=== PATIENT | female | born 1975 | race African-American/Black ===

== ENCOUNTER 2018-12-06 19:43 | Inpatient (IN) ==
[2018-12-06] MEDS ORDERED: ZOFRAN PO ONE (20:35)
[2018-12-06] MEDS ORDERED: HUMULIN R IV ONE (20:37)
[2018-12-06] MEDS ORDERED: BENTYL IM ONE (20:37)
[2018-12-06 21:09] LABS: BASO# 0.03 X1000 (0.0-0.2); BASO% 0.2 % (0.0-0.8); HEMATOCRIT 30.1 % (37.0-47.0); HEMOGLOBIN 10.4 g/dL (12.0-16.0); IMM GRAN# 0.08 X1000 (0.0-0.04); IMM GRAN% 0.6 % (0.0-0.5); LYMPH# 1.95 X1000 (1.2-3.4); LYMPH% 13.9 % (20.5-51.1); MCHC 34.6 g/dL (33-37); MCV 75.3 FL (81-99); MONO# 0.84 X1000 (0.11-0.59); NEUT# 11.09 X1000 (1.4-6.5); NEUT% 79.3 % (42.2-75.2); PLT 598 X1000 (130-400); RDW 19.1 % (11.5-14.5); WBC 13.99 X1000 (4.8-10.8)
[2018-12-06 23:33] LABS: URINE SOURCE CLEAN CATCH
[2018-12-07 00:20] LABS: BILIRUBIN URINE MODERATE (NEGATIVE); BLOOD URINE LARGE (NEGATIVE); COLOR YELLOW; GLUCOSE URINE >1000 mg/dL (NEGATIVE); KETONE URINE TRACE mg/dL (NEGATIVE); LEUKOCYTES URINE LARGE (NEGATIVE); NITRITE URINE NEGATIVE (NEGATIVE); PH URINE 6.5; PROTEIN URINE 600 mg/dL (NEGATIVE); SP GRAVITY URINE 1.022; TURBIDITY URINE TURBID (CLEAR); UROBILINOGEN URINE 4 mg/dL (NORMAL)
[2018-12-07] MEDS ORDERED: TYLENOL PO ONE (00:25)
[2018-12-07 00:29] LABS: UR EPITHELIAL CELLS >10 /HPF (<10); URINE BACTERIA 2+ /HPF; URINE RBC TNTC /HPF (<10); URINE WBC TNTC /HPF (<10)
[2018-12-07 00:39] LABS: URINE CASTS NONE SEEN; URINE CRYSTALS NONE SEEN; URINE SMALL ROUND CELLS NONE SEEN; URINE YEAST NONE SEEN
[2018-12-07] MEDS ORDERED: HUMULIN R IV ONE (01:10)
[2018-12-07] MEDS ORDERED: ZOFRAN IV ONE (01:10)
[2018-12-07] MEDS ORDERED: ROCEPHIN 1 GM in NS 50 ML IV ONE (02:06)
[2018-12-07] MEDS ORDERED: OFIRMEV 1000 MG/ISOTONIC SOLN 1,000 MG/100 ML BOTTLE ONE (02:26)
--- NOTE | 2018-12-07 02:29 | PROVIDER DOCUMENTATION ---
This chart was entered by Bell Luo Scribe, acting as scribe for Deonte Salinas MD. HPI-Abdominal Pain/GI Problem <Nery Robertson - Last Filed: 12/07/18 06:14> - History of Present Illness-ABD Nature of Presenting Problems: 43 yof c/o abd pain 1 mon, v x 4 today and x2 yest (green in color), and no appetite. pt is a dialysis pt bc of her kidneys due to dm. last dialysis tx was friday. pt sts she has had bm's but has been constipated, her bm's are "balled up." pt urinating very little. pt has noticed her eyes becoming more yellow in color. pt went to dr and was told she has gallstones. pt has no hx of kidney stones. pt denies fever, chills and lightheadedness. Abdominal Pain Onset Location: reports: generalized abdomen Pain Radiation: reports: no radiation <Deonte Salinas - Last Filed: 12/07/18 17:07> - General Chief Complaint: Abdominal Pain Stated Complaint: VOMITING CANT EAT Time Seen by Provider: 12/06/18 20:14 Allergies/Adverse Reactions: Patient Allergies Allergy/AdvReac Type Severity Reaction Status Date / Time No Known Allergies Allergy Verified 12/02/15 00:59 Home Medications: Home Medication List Medication Instructions Recorded Confirmed Last Taken Type PRAVAstatin [Pravachol] 80 mg PO QHS 12/02/15 12/06/18 12/01/15 21:00 History Hydroxyzine [Atarax] 10 mg PO TID PRN #20 tab 10/01/18 12/06/18 Unknown Rx Amlodipine [Norvasc] 5 mg PO DAILY 12/06/18 12/06/18 Unknown History Clonidine [Catapres-Tts 2] 1 patch TD Q7D 12/06/18 12/06/18 Unknown History Clopidogrel [Plavix] 75 mg PO DAILY 12/06/18 12/06/18 Unknown History Docusate Sodium [Colace] 100 mg PO DAILY PRN 12/06/18 12/06/18 Unknown History Furosemide 20 mg PO DAILY 12/06/18 12/06/18 Unknown History Gabapentin 1 cap PO QHS 12/06/18 12/06/18 Unknown History Hydralazine [Apresoline] 25 mg PO Q8H 12/06/18 12/06/18 Unknown History Insulin Aspart [Novolog Flexpen] 20 units SUBQ AC 12/06/18 12/06/18 Unknown History Metoprolol Succinate E.r. [Toprol 100 mg PO DAILY 12/06/18 12/06/18 Unknown History Xl] Ondansetron HCl [Zofran] 1 tab PO DIRECTED 12/06/18 12/06/18 Unknown History Review of Systems - Adult - REVIEW OF SYSTEMS - ADULT Constitutional: reports: no symptoms reported. denies: chills, fever Eyes: reports: see HPI, other (eyes yellowing). denies: dry eyes, decreased vision, blurred vision Ears, Nose, Mouth & Throat: reports: no symptoms reported. denies: ear pain, nose pain, throat pain Cardiovascular: reports: no symptoms reported. denies: chest pain, heart murmur, poor circulation Respiratory: reports: no symptoms reported. denies: chronic cough, excessive sputum production, shortness of breath Gastrointestinal: reports: see HPI, abdominal pain, constipation, poor appetite, vomiting. denies: hematemesis, difficulty swallowing, frequent heartburn, rectal bleeding Genitourinary: reports: no symptoms reported. denies: dysuria, discharge, frequency Musculoskeletal: reports: no symptoms reported. denies: bone pain, back pain, joint pain Integumentary: reports: no symptoms reported Neurological: reports: no symptoms reported Psychiatric: reports: no symptoms reported Endocrine: reports: no symptoms reported Hematologic/Lymphatic: reports: no symptoms reported Allergic/Immunologic: reports: no symptoms reported All Other Systems: Reviewed and Negative <Deonte Salinas - Last Filed: 12/07/18 17:07> Past History - Adult - PAST MEDICAL HISTORY-ADULT Review of Records: reports: Old Records Reviewed, Nursing Assessment Review, Medications Reviewed, Social history reviewed & non-contributory. Major Childhood Illnesses: reports: denies history Cardiovascular: reports: HTN, hyperlipidemia Respiratory: reports: denies history Gastrointestinal: reports: denies history Obstetrical/Gynecological: reports: denies history Genitourinary: reports: kidney disease Musculoskeletal: reports: chronic pain Neurological: reports: denies history Endocrine/Immune: reports: Diabetes Other Conditions: reports: denies history - PRIOR SURGERIES/PROCEDURES Surgical/Procedure History: reports: reviewed, not pertinent, orthopedic (extremity) - PRIOR HOSPITALIZATIONS Prior Hospitalizations: reports: for other non-related - IMMUNIZATION STATUS Childhood Immunizations: See Nurse Assessment Flu Vaccine: See Nurse Assessment - FAMILY HISTORY Family History: reviewed, not pertinent - SOCIAL HISTORY Smoking: non-smoker Substance Use: alcohol Alcohol Use Frequency: occasionally <Deonte Salinas - Last Filed: 12/07/18 17:07> Physical Exam-General - PHYSICAL EXAM-ADULT Initial Vital Signs Reviewed: Yes - CONSTITUTIONAL General Appearance: appears well, alert, mild distress. negative: slow to respond, obtunded, combative - EYES Eyes: PERRL/EOMI, scleral icterus - HEAD, EARS, NOSE, MOUTH & THROAT HENMT: normocephalic/atraumatic, moist mucous membranes, normal ENT inspection - NECK Neck: non-tender, full range of motion, supple, normal inspection - RESPIRATORY Respiratory: chest non-tender, lungs clear, normal breath sounds - CARDIOVASCULAR Cardiovascular: normal peripheral pulses, regular rate, rhythm - GASTROINTESTINAL (ABDOMEN) Abdominal Exam: normal bowel sounds, soft, no organomegaly, no pulsatile mass, tenderness (gen abd). negative: non tender, abdominal bruit, abnormal bowel sounds, guarding, rigid, rebound - LYMPHATIC Lymphatic: no adenopathy - MUSCULOSKELETAL Back Exam: normal inspection, no CVA tenderness, no vertebral tenderness Extremity: normal range of motion, non-tender, normal inspection Peripheral Pulses: radial (R): 2+, radial (L): 2+ - SKIN Integumentary: normal color, normal turgor, warm/dry - NEUROLOGIC Neurologic: grossly normal, no motor/sensory deficits - PSYCHIATRIC Psych/Mental Status: normal mood/affect, normal thought content, normal thought process, oriented x 3 <Deonte Salinas - Last Filed: 12/07/18 17:07> Progress - PLAN OF CARE/RESULTS Progress/Plan/Lab Results: Vital Signs - 8 hr 12/06/18 20:09 12/06/18 21:10 12/06/18 21:20 Temperature 98.3 F Pulse Rate 80 77 78 Respiratory Rate 19 18 19 Blood Pressure 150/106 O2 Sat by Pulse Oximetry 100 100 100 12/06/18 21:30 12/06/18 22:00 12/06/18 22:10 Temperature Pulse Rate 78 78 78 Respiratory Rate 17 20 19 Blood Pressure O2 Sat by Pulse Oximetry 100 100 100 12/06/18 22:33 12/06/18 23:33 12/07/18 00:03 Temperature 98.6 F Pulse Rate 99 H 79 69 Respiratory Rate 27 H 24 16 Blood Pressure 147/100 147/95 150/104 O2 Sat by Pulse Oximetry 95 100 100 12/07/18 00:33 12/07/18 00:40 12/07/18 00:48 Temperature 98.7 F Pulse Rate 79 Respiratory Rate 16 10 L 23 Blood Pressure 161/105 158/110 O2 Sat by Pulse Oximetry 100 98 12/07/18 00:50 12/07/18 01:03 12/07/18 01:18 Temperature 99 F Pulse Rate 77 79 Respiratory Rate 10 L 18 12 Blood Pressure 161/115 161/111 O2 Sat by Pulse Oximetry 99 100 100 12/07/18 01:48 12/07/18 02:03 12/07/18 02:18 Temperature 98.3 F 98.9 F Pulse Rate 88 79 66 Respiratory Rate 24 24 23 Blood Pressure 174/113 160/103 163/105 O2 Sat by Pulse Oximetry 99 100 100 12/07/18 02:40 12/07/18 02:50 Temperature Pulse Rate 77 Respiratory Rate 20 27 H Blood Pressure O2 Sat by Pulse Oximetry 100 97 Laboratory Results - last 24 hr 12/06/18 12/06/18 12/06/18 19:54 20:51 22:24 WBC 13.99 H RBC 4.00 L Hgb 10.4 L Hct 30.1 L MCV 75.3 L MCH 26.0 L MCHC 34.6 RDW Std Deviation 19.1 H Plt Count 598 H MPV 10.0 Immature Gran % (Auto) 0.6 H Neut % (Auto) 79.3 H Lymph % (Auto) 13.9 L Wood % (Auto) 6.0 Eos % (Auto) 0.0 Baso % (Auto) 0.2 Immature Gran # (Auto) 0.08 H Neut # (Auto) 11.09 H Lymph # (Auto) 1.95 Wood # (Auto) 0.84 H Eos # (Auto) 0.00 Baso # (Auto) 0.03 Sodium Potassium Chloride Carbon Dioxide Anion Gap BUN Creatinine Estimated GFR/1.73 m2 BUN/Creatinine Ratio Glucose POC Glucose 500 H 500 H Calculated Osmolality Calcium Total Bilirubin AST ALT Alkaline Phosphatase Total Protein Albumin Globulin Albumin/Globulin Ratio Amylase Lipase Urine Source Urine Color Urine Turbidity Urine pH Ur Specific [place] Urine Protein Ur Glucose (Stick) Ur Ketones (Stick) Urine Blood Urine Nitrite Urine Bilirubin Urobilinogen Dipstick Urine Leukocytes Urine WBC (Auto) Urine RBC (Auto) U Epithel Cells (Auto) Urine Bacteria (Auto) Urine Crystals Small Round Cells Urine Casts Urine Yeast-like Cells Acetone Level 12/06/18 12/07/18 12/07/18 23:23 00:45 01:26 WBC RBC Hgb Hct MCV MCH MCHC RDW Std Deviation Plt Count MPV Immature Gran % (Auto) Neut % (Auto) Lymph % (Auto) Wood % (Auto) Eos % (Auto) Baso % (Auto) Immature Gran # (Auto) Neut # (Auto) Lymph # (Auto) Wood # (Auto) Eos # (Auto) Baso # (Auto) Sodium Cancelled Potassium Cancelled Chloride Cancelled Carbon Dioxide Cancelled Anion Gap Cancelled BUN Cancelled Creatinine Cancelled Estimated GFR/1.73 m2 Cancelled BUN/Creatinine Ratio Cancelled Glucose Cancelled POC Glucose 500 H Calculated Osmolality Cancelled Calcium Cancelled Total Bilirubin Cancelled AST Cancelled ALT Cancelled Alkaline Phosphatase Cancelled Total Protein Cancelled Albumin Cancelled Globulin Cancelled Albumin/Globulin Ratio Cancelled Amylase Cancelled Lipase Cancelled Urine Source CLEAN CATCH Urine Color YELLOW Urine Turbidity TURBID Urine pH 6.5 Ur Specific [place] 1.022 Urine Protein 600 A Ur Glucose (Stick) >1000 A Ur Ketones (Stick) TRACE A Urine Blood LARGE A Urine Nitrite NEGATIVE Urine Bilirubin MODERATE A Urobilinogen Dipstick 4 A Urine Leukocytes LARGE A Urine WBC (Auto) TNTC A Urine RBC (Auto) TNTC A U Epithel Cells (Auto) >10 A Urine Bacteria (Auto) 2+ Urine Crystals NONE SEEN Small Round Cells NONE SEEN Urine Casts NONE SEEN Urine Yeast-like Cells NONE SEEN Acetone Level 12/07/18 12/07/18 12/07/18 01:26 02:06 02:30 WBC RBC Hgb Hct MCV MCH MCHC RDW Std Deviation Plt Count MPV Immature Gran % (Auto) Neut % (Auto) Lymph % (Auto) Wood % (Auto) Eos % (Auto) Baso % (Auto) Immature Gran # (Auto) Neut # (Auto) Lymph # (Auto) Wood # (Auto) Eos # (Auto) Baso # (Auto) Sodium 131 L Potassium Cancelled 4.8 Chloride 92 L Carbon Dioxide 18 L Anion Gap 21 BUN 43 H Creatinine 4.4 H Estimated GFR/1.73 m2 13 BUN/Creatinine Ratio 10 Glucose 536 H* POC Glucose Calculated Osmolality 295 Calcium 8.7 L Total Bilirubin 4.91 H AST 89 H ALT 87 H Alkaline Phosphatase 953 H Total Protein 6.9 Albumin 2.8 L Globulin 4.1 Albumin/Globulin Ratio 0.7 Amylase 36 Lipase 52 Urine Source Urine Color Urine Turbidity Urine pH Ur Specific [place] Urine Protein Ur Glucose (Stick) Ur Ketones (Stick) Urine Blood Urine Nitrite Urine Bilirubin Urobilinogen Dipstick Urine Leukocytes Urine WBC (Auto) Urine RBC (Auto) U Epithel Cells (Auto) Urine Bacteria (Auto) Urine Crystals Small Round Cells Urine Casts Urine Yeast-like Cells Acetone Level NEGATIVE Orders Category Date Time Status Blood Glucose Finger Stick [FSBS/Accucheck Result] NOW Care 12/07/18 00:03 Active ACETONE SERUM [CHEM] Stat Lab 12/06/18 20:51 Completed AMYLASE [CHEM] Routine Lab 12/07/18 02:30 Completed CBC WITH ELECTRONIC DIFF [HEME] Stat Lab 12/06/18 20:51 Completed COMPREHENSIVE METABOLIC PANEL [CHEM] Routine Lab 12/07/18 02:30 Completed LIPASE [CHEM] Routine Lab 12/07/18 02:30 Completed URINALYSIS W/POSS RFLX CULT [URINALYSIS] Stat Lab 12/06/18 23:23 Completed URINE CULTURE [RM] Routine Lab 12/07/18 00:40 Received URINE MANUAL MICROSCOPIC [URINALYSIS] Stat Lab 12/06/18 23:23 Completed Acetaminophen [Ofirmev 1000 mg/Isotonic Soln] Med 12/07/18 02:26 Discontinued 1,000 mg in 100 ml .ROUTE As directed Acetaminophen [Ofirmev 1000 mg/Isotonic Soln] Med 12/07/18 02:30 Discontinued 1,000 mg in 100 ml INJ NOW Acetaminophen [Tylenol] Med 12/07/18 00:25 Discontinued 650 mg PO NOW ONE CefTRIAXONE [Rocephin] 1 gm Med 12/07/18 02:06 Discontinued 0.9% Sodium Chloride Inj [Ns] 50 ml IV NOW Dicyclomine [Bentyl] Med 12/06/18 20:37 Discontinued 20 mg IM NOW ONE Insulin Human Regular [Humulin R] Med 12/06/18 20:37 Discontinued 5 unit IV NOW ONE Insulin Human Regular [Humulin R] Med 12/07/18 01:10 Discontinued 8 unit IV NOW ONE Ondansetron [Zofran] Med 12/07/18 01:10 Discontinued 4 mg IV NOW ONE Ondansetron [Zofran] Med 12/06/18 20:35 Discontinued 8 mg PO NOW ONE EKG [EKG] Stat Ther 12/07/18 02:20 Ordered Result Diagrams: 12/06/18 20:51 12/07/18 02:30 <Nery Robertson - Last Filed: 12/07/18 06:14> - PLAN OF CARE/RESULTS Progress/Plan/Lab Results: Vital Signs - 8 hr 12/06/18 19:45 12/06/18 20:08 12/06/18 20:09 Temperature 97.7 F Pulse Rate 83 83 80 Respiratory Rate 15 18 19 Blood Pressure 145/98 150/106 O2 Sat by Pulse Oximetry 100 100 Laboratory Results - last 24 hr 12/06/18 19:54 POC Glucose 500 H I noticed delay in lab results called lab and they told me sample is hemolysed and they informed our ED. I spoke to nurse Lee and it looks like that happened in the previous nursing shift. Nurse Lee is going to send blood for lab test. Patient with abdominal pain, leukocytosis, vomiting, hyperglycemia need admission and further management in inpatient setting. I sign out patient care to Dr. Robertson. Result Diagrams: 12/06/18 20:51 12/07/18 02:30 - CHANGE OF SHIFT REPORT (ED Provider) 1 Report Given and Care Transferred to:: Dr. Robertson Time of Transfer: 02:30 Items Pending: Labs, Other (EKG) <Deonte Salinas - Last Filed: 12/07/18 17:07> Departure - Departure Date of Disposition Decision: 12/07/18 Time of Disposition Decision: 04:10 Certified Medical Emergency: Emergent - Critical Care Note This patient required my direct & personal management of CC.: No <Nery Robertson - Last Filed: 12/07/18 06:14> <Deonte Salinas - Last Filed: 12/07/18 17:07> - Departure DIAGNOSIS: Hyperglycemia UTI (urinary tract infection) Qualifiers: Urinary tract infection type: site unspecified Hematuria presence: with hematuria Qualified Code(s): N39.0 - Urinary tract infection, site not specified; R31.9 - Hematuria, unspecified Abdominal pain Qualifiers: Abdominal location: epigastric Qualified Code(s): R10.13 - Epigastric pain Disposition: ADMITTED INPATIENT 09 Condition: Good Attestation - Physician/ ANNELISE Attestation Patient care was provided by Advanced Practice Provider:: No The physician spent face to face time with patient:: Yes Advanced Practice Provider documentation review:: Supervising physician onsite and consulted in the evaluation and care of this patient. The physician did have a face to face encounter with the patient. <Nery Robertson - Last Filed: 12/07/18 06:14> - Physician/ ANNELISE Attestation Patient care was provided by Advanced Practice Provider:: No The physician spent face to face time with patient:: Yes Advanced Practice Provider documentation review:: Supervising physician onsite and consulted in the evaluation and care of this patient. The physician did have a face to face encounter with the patient. <Deonte Salinas - Last Filed: 12/07/18 17:07> This chart was documented by the indicated scribe, (Bell Luo Scribe) and accurately reflects the services I performed and decisions made by me, Deonte Salinas MD, as attested by the provider's signature.
[2018-12-07] MEDS ORDERED: OFIRMEV 1000 MG/ISOTONIC SOLN 1,000 MG/100 ML BOTTLE INJ ONE (02:30)
[2018-12-07 03:09] LABS: ALB/GLOB RATIO 0.7; ALBUMIN 2.8 g/dL (3.5-5.0); CALCIUM 8.7 mg/dL (8.8-10.2); CREATININE 4.4 mg/dL (0.5-0.9); POTASSIUM 4.8 mmol/L (3.5-5.1); TOTAL BILIRUBIN 4.91 mg/dL (0.20-1.00); TOTAL PROTEIN 6.9 g/dL (6.3-8.3)
[2018-12-07] MEDS ORDERED: COLACE PO PRN (04:16)
[2018-12-07] MEDS ORDERED: ZOFRAN PO SCH (04:30)
[2018-12-07] MEDS ORDERED: NS 1,000 ML IV ONE (04:44)
[2018-12-07 05:07] LABS: HEMOGLOBIN A1C 13.8 % (4.8-6.0)
[2018-12-07] MEDS ORDERED: BLISTEX MEDICATED BERRY LIP BALM TOP ONE (05:28)
[2018-12-07] MEDS ORDERED: TYLENOL PO PRN (06:10)
[2018-12-07] MEDS ORDERED: ZOFRAN IV PRN (06:10)
--- NOTE | 2018-12-07 06:33 | HISTORY AND PHYSICAL ---
CHIEF COMPLAINT: Abdominal pain, nausea, and vomiting. HISTORY OF PRESENT ILLNESS: Ms. Viera is a 43-year-old female with a history of end-stage renal disease with Friday, , Friday hemodialysis, diabetes mellitus type 1, hypertension, hyperlipidemia, a history of anxiety and depression who comes in after having nausea and vomiting for the past two days. She states that is also having right upper quadrant abdominal pain and she noted that her eyes were starting to look yellow so she came into the emergency room. Initial laboratory data showed an elevated white blood cell count, also an elevated glucose in the 500s. Her total bilirubin was also elevated at 4.91 and her urine was leuko-esterase positive with too numerous to count WBCs, 2+ bacteria and hematuria. She will be admitted to the medical floor for further evaluation and treatment. PAST MEDICAL HISTORY: See HPI. PREVIOUS SURGICAL HISTORY: 1. Tubal ligation. 2. Right chest tunnel catheter placement. 3. Left wrist surgery. SOCIAL HISTORY: Denies tobacco, alcohol or illicit drugs. FAMILY HISTORY: Hypertension in her immediate family. Her mother had diabetes and from kidney disease. Her father from prostate cancer. ALLERGIES: No known drug allergies. MEDICATIONS: 1. NovoLog Flex Pen 20 units subcutaneously AC, 2. Norvasc 5 mg p.o. daily. 3. Clonidine TTS 2 patch q 7 days. 4. Plavix 75 mg p.o. daily. 5. Colace 100 mg p.o. daily. 6. Lasix 20 mg p.o. daily. 7. Neurontin 100 mg p.o. nightly. 8. Hydralazine 25 mg p.o. q.8.h. 9. Hydroxyzine 10 mg p.o. t.i.d. 10.Metoprolol 100 mg p.o. daily. 11.Zofran one tablet p.o. p.r.n. 4 mg. 12.Pravastatin 80 mg p.o. nightly. REVIEW OF SYSTEMS: Fourteen point review of systems conducted with the patient. Pertinent positives listed above in the HPI. All other systems reviewed and found to be negative. PHYSICAL EXAMINATION: VITAL SIGNS: Temperature 98.9, pulse 77, respirations 20, blood pressure 163/105, oxygen saturation 100% on room air. GENERAL: Pleasant 43-year-old female sitting on the side of the ER stretcher, answers all questions appropriately. She is alert and oriented times 3. HEENT: Head is atraumatic, normocephalic. Pupils equal, round, reactive to light. Extraocular eye movement is intact. Sclerae is jaundiced. Conjunctivae is pale. Oral mucosa is moist. NECK: Supple. Mild JVD noticed. Trachea is midline. CARDIAC: S1, S2 appreciated. No murmurs, gallops or rubs. LUNGS: Clear to auscultation bilaterally. No rhonchi, wheezes or rales. Symmetric rise and fall with respirations. ABDOMEN: Soft, nondistended, tender diffusely but the greatest area is in the right upper quadrant. Bowel sounds present all 4 quadrants, hypoactive. No pulsatile mass. No organomegaly. EXTREMITIES: No clubbing, cyanosis or edema. Two-plus pedal pulses bilaterally. NEUROLOGICAL: Alert and oriented times 3. Cranial nerves II-XII appear to be grossly intact. MUSCULOSKELETAL: Within normal limits. DIAGNOSTIC DATA: Right upper quadrant ultrasound is pending. LABORATORY DATA: WBC 13.99. Hemoglobin 10.4. Hematocrit 30.1. Platelet count 598. Sodium 131. Potassium 4.8. Chloride 92. Carbon dioxide 18. BUN 43. Creatinine 4.4. Glucose 536. Total bilirubin 4.91. AST 89. ALT 87. Urine: Positive for hematuria, leuko- esterase positive, too numerous to count WBCs, 2+ bacteria. PLAN: 1. Right-sided pyelonephritis. Will treat with Rocephin 1 g IV q.24.h at this time. Urine culture is pending. Will also order blood cultures. 2. End-stage renal disease with hemodiagnosis. Will consult Dr. Hannah. Will monitor patient's fluid volume status. 3. Abdominal pain with nausea and vomiting. Will give Zofran and Percocet as needed. NPO except for medications. Will give normal saline at 50 mL an hour while patient is NPO. Will monitor fluid volume status related to her kidney disease. Also will order right upper quadrant ultrasound to evaluate gallbladder and liver as her total bilirubin and liver enzymes are elevated. 4. Diabetes mellitus, type 1. Fingerstick blood sugars q.4.h with moderate dose sliding scale. 5. Hypertension. Continue home medications. 6. Hyperlipidemia. Continue statin. Further recommendations per patient clinical course. Dictated by ALEXIS Coleman for Herminio Blanc MD I have performed a face to face diagnostic evaluation. Labs/ Xrays- reviewed- Exam- chest-bibasilar rales, Back- Rt flank tenderness. A/P- Suspected Pyelonephritis; ESRD- Admit, IV ABX., Nephrology consult for dialysis. Dr. Blanc cc: ALEXIS Coleman MD Reginald D. Gladish, MD [facility]
[2018-12-07] MEDS: HUMALOG SUBQ SCH ×5 (06:37→20:26)
[2018-12-07] MEDS: APRESOLINE PO SCH ×3 (06:38→23:23)
--- NOTE | 2018-12-07 07:09 | EKG Report ---
Test Performed on : 12/07/2018 02:34:19 AM Test Reason : hyperkalemia Blood Pressure : / mmHG Vent. Rate : 077 BPM Atrial Rate : 077 BPM P-R Int : 156 ms QRS Dur : 100 ms QT Int : 388 ms P-R-T Axes : 075 066 189 degrees QTc Int : 439 ms Normal sinus rhythm. Nonspecific T wave abnormality Abnormal ECG When compared with ECG of 03-DEC-2015 06:03, QRS duration has increased Unconfirmed Result
[2018-12-07] MEDS ORDERED: SODIUM CHLORIDE 0.9% INJ SCH (08:30)
--- NOTE | 2018-12-07 08:53 | Diag Imaging Result Doc PS360 ---
EXAM: CHEST-PORTABLE INDICATION: dyspnea TECHNIQUE: One view COMPARISON: 12/06/2015 FINDINGS: There has been interval placement of a right Vas-Cath. The tip projects over the lower SVC near the atriocaval junction in the expected position. The lungs are grossly clear. There is no discrete pleural fluid collection or pneumothorax. The cardiomediastinal silhouette and central vasculature are grossly unremarkable. IMPRESSION: Interval placement of right Vas-Cath as described. Otherwise, stable chest with no evidence of acute pathology. Electronically signed by Jony Luo 12/07/2018 8:51 AM
[2018-12-07] MEDS ORDERED: PLAVIX PO SCH (09:00)
[2018-12-07] MEDS ORDERED: LASIX PO SCH (09:00)
--- NOTE | 2018-12-07 09:12 | Diag Imaging Result Doc PS360 ---
EXAM: US GB < RUQ (LIMITED) INDICATION: ? acute cholecystitis. elevated bili, lfts COMPARISON: 12/02/2015 FINDINGS: There are shadowing stones in the gallbladder lumen and the gallbladder wall is significantly thickened measuring up to 1 cm in thickness. This is suspicious for cholecystitis. No significant pericholecystic fluid is identified. There is an 8 mm nonshadowing nodule arising from the gallbladder wall suggesting a prominent polyp. The common bile duct is normal in diameter. Sonographic Nickerson's sign was reported to be negative. The liver is grossly unremarkable. Portal venous flow is hepatopetal. The pancreas is obscured by bowel gas. The distal aorta is also obscured. The remainder of the aorta and IVC are unremarkable. There is questionable mild increased right renal echotexture, which is a nonspecific indicator of medical renal disease. IMPRESSION: 1.Cholelithiasis with prominent thickening of the gallbladder wall that is very suspicious for cholecystitis. 2.8 mm gallbladder wall polyp. 3.Questionable very slight increase in the renal cortical echotexture, which is a nonspecific indicator of medical renal disease Electronically signed by Jony Luo 12/07/2018 9:09 AM
[2018-12-07] MEDS: NORVASC PO SCH (09:20)
[2018-12-07] MEDS: TOPROL XL PO SCH (09:21)
[2018-12-07] MEDS: LANTUS INSULIN SUBQ SCH ×2 (09:22→10:41)
[2018-12-07] MEDS: ZOSYN 3.375 GM in NS 50 ML IV SCH ×3 (09:22→23:24)
[2018-12-07] MEDS: PROTONIX IV SCH (09:30)
[2018-12-07] MEDS ORDERED: CATAPRES-TTS-2 TD SCH (12:00)
--- NOTE | 2018-12-07 12:08 | GASTROENTEROLOGY CONSULTATION ---
DATE: 12/07/2018 ATTENDING PHYSICIAN: Dr. Gaston. PRIMARY CARE DOCTOR: ARIADNE. PRIMARY SUTURE WINDER HAND: Dr. Hannah. REASON FOR CONSULTATION: Abdominal pain, nausea, vomiting and jaundice. HISTORY: Ms. Viera is a 43-year-old female who was admitted on 12/24/2018 with symptoms of abdominal pain in the right upper quadrant along with nausea and vomiting. She was noted to be jaundiced on admission. Her total bilirubin was 4.9 on admission. She has history of end-stage renal disease on hemodialysis and she gets hemodialysis Friday, , and Friday per Dr. Hannah. Her last hemodialysis was last Friday. During part of the workup, she had ultrasound of the abdomen done this morning which showed evidence of cholecystitis. In this regard, we have placed a consultation for General Surgery. The patient denies any vomiting or passing blood in the stools. PAST MEDICAL HISTORY: 1. End-stage renal disease. He is on hemodialysis. 2. Anxiety. 3. Depression. 4. Gallstones. 5. Urinary tract infection. 6. Diabetes. 7. Hyperlipidemia. 8. Hypertension. PAST SURGICAL HISTORY: 1. Tubal ligation. 2. Right chest tunnel catheter placement. 3. Left wrist surgery. SOCIAL HISTORY: Denies tobacco, alcohol, illicit drugs. FAMILY HISTORY: Hypertension runs in immediate family. Her mother had diabetes and with kidney disease. Father of prostate cancer. ALLERGIES: No known drug allergies. MEDICATIONS AT HOME: 1. NovoLog FlexPen. 2. Norvasc. 3. Clonidine patch. 4. Plavix 75 mg every day. 5. Colace 100 mg p.o. daily. 6. Lasix 20 mg every day. 7. Neurontin 100 mg once daily. 8. Hydralazine. 9. Hydroxyzine. 10. Metoprolol. 11. Zofran 4 mg as needed. 12. Pravastatin. MEDICATIONS IN THE HOSPITAL: Reviewed and included: 1. Neurontin. 2. Tylenol. 3. Norvasc. 4. Colace. 5. Hydralazine. 6. Atarax. 7. Lantus. 8. Humalog. 9. Metoprolol. 10. Zofran. 11. Oxycodone/acetaminophen. 12. Protonix. 13. Zosyn. 14. Clonidine patch. The patient is currently NPO. REVIEW OF SYSTEMS: Denies any fevers, rigors, chills, chest pain, shortness of breath, dyspnea. Denies any genitourinary complaints. Denies any vomiting blood. Does complain of nausea and vomiting. Right upper quadrant pain. Denies any blood in the stools. Denies any current neurological complaints. PHYSICAL EXAMINATION: Vital Signs: Temperature 98 degrees, pulse of 75, respiratory rate 19, blood pressure 115/94, saturating 100% room air, body weight of 173 pounds and 9 ounces, BMI 27.2 kg. General: Alert and oriented. Moderately nourished, lying in bed, in no acute distress. HEENT: Pale conjunctivae. Icteric sclerae. Pupils equal, reactive to light. Neck: Supple. Abdomen: Discomfort in the right upper quadrant. No rebound or guarding. Extremities: No cyanosis or clubbing. Neuro: Alert, awake, and oriented. LABS: Hemoglobin 10.4, hematocrit 30.1, white count of 13.9, platelet count 598, MCV of 75.3. Sodium 139, potassium 4.2, chloride 92, bicarb of 18, anion gap of 21, BUN of 43, creatinine 4.4, glucose 536, calcium is 8.7, phosphorus 6. Total bilirubin is 4.91, AST 89, ALT 87, alkaline phosphatase 953, total protein is 6.9, albumin of 2.8. Hemoglobin A1c is 13.8. Amylase of 36, lipase of 52. Urinalysis showing positive glucose, positive ketones, large blood, moderate bilirubin, large leukocytes. Blood culture x2 are currently pending. Ultrasound of the abdomen done today showed cholelithiasis with prominent thickening of the gallbladder wall that is suspicious for cholecystitis, 8 mm gallbladder wall polyp. Questionable very slight increase in renal cortical echotexture which is nonspecific indicative medical renal disease. Common bile duct is normal in diameter. Sonographic Nickerson sign was reported to be negative. The liver is grossly unremarkable. Portal venous flow is hepatopetal. IMPRESSION/PLAN: 1. Abdominal pain in the right upper quadrant along with nausea and vomiting and elevated liver enzymes likely secondary to acute cholecystitis. 2. Anemia. 3. Uncontrolled diabetes. 4. End-stage renal disease on hemodialysis. 5. Possible urinary tract infection. RECOMMENDATIONS: 1. We will keep the patient on Protonix IV once daily. We will keep her NPO. We will place a general surgery consult for Dr. Leung for possible cholecystectomy. I encouraged the patient to keep a good control of diabetes. We will keep her on bowel regimen which can be started when she can start orally. 2. She has anemia but no signs of any active gastrointestinal bleeding. This could be anemia of chronic disease from history of chronic renal failure. If anemia persists then she may need outpatient EGD and colonoscopy for further workup. 3. I discussed the plan with the patient and all questions were answered. Please call us with any further questions. cc: MD Meir Chen MD Dr. Adams Reginald D. Gladish, MD
[2018-12-07 12:13] LABS: ALLEN TEST NO; BE 0.1 mmoll (-3.0-3.0); BLOOD TYPE ARTERIAL; METHB 0.9 % (0.0-1.5); O2(CT) 13.9 mL/dL (15.0-23.0); O2HB 96.1 % (95.0-99.0); PCO2(98.6) 31 mmHg (35-45); PO2(98.6) 100 mmHg (60-100); SAMPLE BLOOD; SAO2 98.9 % (95.0-100.0); THB 10.2 g/dL (11.5-17.4); pH(98.6) 7.48 (7.35-7.45)
--- NOTE | 2018-12-07 12:53 | NEPHROLOGY CONSULTATION ---
DATE: 12/07/2018 REASON FOR ADMISSION: Abdominal pain associated with nausea and vomiting. REASON FOR CONSULT: End-stage renal disease, assistance with medical management. HISTORY OF PRESENT ILLNESS: Ms. Viera is a 43-year-old female who is known to our outpatient services for hemodialysis on Friday, , Friday at the [facility]. The patient states that she has not been well for approximately 2 to 3 days. She has had right upper quadrant abdominal pain, noted that her eyes were turning a yellow, chronic nausea and vomiting for 2 days. Presented to the emergency room, was found to have a total bilirubin of 4.91 and a urine with leukocyte esterase positive, WBCs positive 2+, and hematuria. She also has a total bilirubin noted at 4.91, AST 89, ALT 87, amylase 36, lipase 52. Due to these findings, patient has been admitted for further monitoring and evaluation. Abdominal ultrasound indicates cholelithiasis with prominent thickening of the gallbladder suspicious for cholecystitis, 8 mm gallbladder wall polyp. PAST MEDICAL HISTORY: End-stage renal disease with hemodialysis on Friday, , Friday. Hypertension, diabetes mellitus type 1, hyperlipidemia, depression, anxiety, anemia of chronic disease, osteodystrophy of chronic disease. PAST SURGICAL HISTORY: Tubal ligation, right chest tunnel wall catheter, left wrist surgery. ALLERGIES: Listed as no known drug allergies. SOCIAL HISTORY: She is single. She lives with her 2 sons. Patient denies any illicit drugs. Occasional alcohol. No tobacco. FAMILY HISTORY: Positive for ESRD with her mother. MEDICATIONS: Have yet to be reconciled. REVIEW OF SYSTEMS: The patient is positive for nausea, vomiting, weakness, increased work of breathing, abdominal pain. No fever or chills. No hematuria, hematochezia or hemoptysis. Positive for nausea, vomiting. No diarrhea. REVIEW OF SYSTEMS: Times 10 with pertinent positives listed. LABORATORY DATA: Sodium 131, potassium 4.8, chloride 92, CO2 18, BUN 43, creatinine 4.4, glucose 536, anion gap 21, calcium 8.7, albumin 2.8 white count 13.99, hemoglobin 10.4, hematocrit 30.1 with a platelet count of 598,000. Again, elevated bilirubin with an elevated AST and ALT, elevated alkaline phosphatase. PHYSICAL EXAMINATION: Vital Signs: Temperature 97.4 degrees, blood pressure 169/111, heart rate 79, respirations are 18. She is on room air. Last recorded saturation 100%. She has had 0 recorded in, 25 mL out. General: This is a 43-year-old, white female resting quietly in bed. Skin: Warm and dry. HEENT: Normocephalic, atraumatic. Conjunctivae pale, slightly icteric. Neck: Supple. Trachea midline. No evidence of JVD. Cardiovascular: She is regular rate and rhythm. She is tachycardic. She has a positive gallop. Lungs: Poor inspiratory effort. Equal excursion. She is on room air. Abdomen: Tender to palpation. She is using her accessory muscles. Obese. Soft. Positive bowel sounds. Genitourinary: Not inspected. Minimal void with dialysis assist. Extremities: Have 1+ lower extremity edema. Neurological: She is alert and oriented x3. ASSESSMENT AND PLAN: 1. Chronic kidney disease, stage 5D. The patient is due for her routine dialysis treatment on Friday, , Friday. No indications for intervention today. No increased fluid volume overload. 2. Electrolytes and acid-base balance. These are acceptable with a mild anion gap more likely secondary to her nausea and vomiting. 3. Anemia. This is low but stable. 4. Urinary tract infection. Patient is currently on Rocephin. 5. Acute cholangitis. We will consult GI. We will change her antibiotics from Rocephin to Zosyn 3.375 mg every 8 hours with plans for dialysis in the morning. I would to thank you for allowing us to follow with this patient. Dictated by ALEXIS Plata for Jersey Hannah MD Data reviewed, discussed with Sam Jacinto on 12/07/18. I agree with the above assessment and plan of care. cc: ALEXIS Plata MD [facility]
--- NOTE | 2018-12-07 13:31 | PROGRESS NOTE ---
DATE: 12/07/2018 BRIEF PROGRESS NOTE: Patient is admitted with sepsis and hyperglycemia. On initial evaluation, found to have urinalysis suggestive of infection, elevated bilirubin and LFTs, but normal lipase. Markedly elevated glucose and gap acidosis. Initial concern for DKA versus acute cholecystitis versus pyelonephritis. ABG without acidosis actually making DKA unlikely and lactate only minimally elevated. No CVA tenderness to suggest pyelonephritis. Ultrasound showing prominent thickening gallbladder wall suspicious for cholecystitis as well as gallbladder wall polyp. Because of these, and RUQ pain the source of her symptoms is likely acute cholecystitis. The patient on antibiotics with Zosyn. ASSESSMENT AND PLAN: We will ask Surgery to see for possible cholecystectomy in the near future. Continue symptomatic treatment with pain and nausea medications. Continue antibiotics and gentle fluids. Awaiting Nephrology recommendations regarding her end-stage renal disease status. Likely no need for acute dialysis with ABG showing essentially normal pH. MTDD
[2018-12-07] MEDS ORDERED: BENADRYL PO PRN (13:44)
--- NOTE | 2018-12-07 14:08 | GENERAL SURGERY CONSULTATION ---
DATE: 12/07/2018 REASON FOR CONSULTATION: Cholecystitis. HISTORY OF PRESENT ILLNESS: This is a 43-year-old female who has been having episodes of epigastric and right upper quadrant pain especially after eating greasy food for the last 2 months and then yesterday she started having pain again after eating with multiple episodes of nausea and vomiting. She has had no relieving factors other than time. No other systemic complaints such as fever or diarrhea. PAST MEDICAL HISTORY: End-stage renal disease, anxiety, depression, urinary tract infection, diabetes, hyperlipidemia, hypertension. PAST SURGICAL HISTORY: Tubal ligation, PermCath placement and left wrist surgery. SOCIAL HISTORY: Negative for tobacco, alcohol or illicit drugs. FAMILY HISTORY: Positive for hypertension, diabetes and prostate cancer. ALLERGIES: No known drug allergies. HOME MEDICATIONS: NovoLog, Norvasc, clonidine, Colace, Lasix, Neurontin, hydralazine, hydroxyzine, metoprolol, Zofran and pravastatin. She used to take Plavix but has not had this in over a month. REVIEW OF SYSTEMS: Ten systems reviewed and negative except as noted above. PHYSICAL EXAMINATION: Vital Signs: Temperature 98 degrees, pulse 75, respirations 19, blood pressure 159/94, O2 saturation 100%. General: Well-developed, well-nourished female in no distress who looks her stated age. HEENT: Normocephalic, atraumatic. Extraocular muscles intact. Pupils equal, round, reactive to light. Sclerae anicteric. Moist mucous membranes. Neck: Supple. No thyromegaly. CV: Regular rate and rhythm. Respiratory: Bilateral equal breath sounds. No work of breathing. GI: Soft, nondistended. She is tender in the right upper quadrant. No rebound or guarding. No hernias. Extremities: No clubbing, cyanosis or edema. Skin: Warm and dry. No rash. Musculoskeletal: Moves all extremities equally and well. LABORATORY: White blood cell count 14, hemoglobin 10, hematocrit 30, platelet count 598,000, pH 7.5, pCO2 31, PaO2 100, base excess 0.1, lactate 2.5. Sodium 131, potassium 92, CO2 18, BUN 43, creatinine 4.4, glucose 536 initially, now 129, calcium 8.7, total bilirubin 4.9, AST 89, ALT 87, alkaline phosphatase 953, amylase 36, lipase 52. IMAGING: Abdominal ultrasound shows shadowing stones in the gallbladder with a thickened wall up to 1 cm in thickness. There is also a nodule in the gallbladder wall suggesting a prominent polyp. ASSESSMENT/PLAN: A 43-year-old female with acute cholecystitis and multiple other medical problems. She is on Zosyn. We are planning laparoscopic cholecystectomy with operative cholangiogram today. I discussed the risks, benefits, alternatives with her including bleeding, infection, injury to surrounding organs such as the bile duct or intestines, the possibility of converting to an open procedure and other imponderables. She understands and agrees to proceed. cc: Meir Leung MD
[2018-12-07] MEDS: ATARAX PO PRN (14:29)
[2018-12-07] MEDS ORDERED: VERSED ONE (15:40)
[2018-12-07] MEDS ORDERED: XYLOCAINE-MPF 2% ONE (15:40)
[2018-12-07] MEDS ORDERED: DIPRIVAN 1% ONE (15:40)
[2018-12-07] MEDS ORDERED: QUELICIN (DOSE) ONE (15:41)
[2018-12-07] MEDS ORDERED: NS 50 ML ONE (15:51)
[2018-12-07] MEDS ORDERED: LR 1,000 ML ONE (16:17)
[2018-12-07] MEDS ORDERED: MARCAINE 0.25% PF/EPI 1:200,000 ONE (16:17)
[2018-12-07] MEDS ORDERED: SODIUM CHLORIDE 0.9% ONE (16:17)
[2018-12-07] MEDS ORDERED: FENTANYL ONE (16:48)
[2018-12-07] MEDS ORDERED: ZOFRAN ONE (17:01)
[2018-12-07] MEDS ORDERED: DECADRON ONE (17:01)
--- NOTE | 2018-12-07 17:35 | Diag Imaging Result Doc PS360 ---
EXAM: OPERATIVE CHOLANGIOGRAM HISTORY: GALLBLADDER TECHNIQUE: Intraoperative cavogram, single view COMPARISON: None. FINDINGS: Contrast fills the common bile duct. It has emptied into the duodenum. No definite filling defect. IMPRESSION: No stones identified. Electronically signed by Sergio Ledezma 12/07/2018 5:33 PM
--- NOTE | 2018-12-07 18:07 | OPERATIVE NOTE ---
PROCEDURE DATE: 12/07/2018 PREOPERATIVE DIAGNOSIS: Acute cholecystitis. POSTOP DIAGNOSIS: Acute cholecystitis. PROCEDURE: Laparoscopic cholecystectomy with operative cholangiogram. SURGEON: Meir Leung MD. ANESTHESIA: General. ESTIMATED BLOOD LOSS: 30 mL. COMPLICATIONS: None apparent. SPECIMENS: Gallbladder. FINDINGS: The cholangiogram revealed a normal cystic duct, common duct junction with flow of contrast seen in the distal common duct and into the duodenum. The proximal hepatic duct however would not fill with contrast into the hepatic radicals presumably from the path of least resistance into the distal common bile duct. The gallbladder did appear to be acutely inflamed. TECHNIQUE: The patient was brought to the operating room and placed supine on the table. General anesthesia was induced. She was prepped and draped in usual sterile fashion. 0.25% Marcaine with epinephrine was used to anesthetize our incisions. An 11 mm incision was made above the umbilicus. The fascia was exposed and incised sharply. Entry into the peritoneal cavity was obtained under direct vision with the Optiview device. Pneumoperitoneum was established. The camera was inserted. There was no evidence of injury to underlying structures. She was placed in reverse Trendelenburg and left rotation. Three 5 mm incision ports were placed in the epigastric right upper quadrant per usual routine. The dome of the gallbladder was grasped by the project construction assistant manager with an Allis clamp and lifted up superiorly. The triangle of Calot was then dissected out with the [place] forceps, the suction tip and hook cautery until the critical view was obtained. The gallbladder liver junction was seen. There were only 2 structures entering the gallbladder, the cystic duct and cystic artery. The artery was clipped proximally and distally and incised between with scissors. A clip was placed on the distal cystic duct. A ductotomy was made proximal to this with scissors. A 14-gauge Angiocath was passed through the right upper quadrant. The Taut cholangiogram catheter was passed through this into the cystic duct and held in place with a clip. The cholangiogram was performed with findings as noted above. The clip, catheter and Angiocath were removed. Two clips were placed on the proximal cystic duct and it was divided distal to these with scissors. The gallbladder was then removed from liver bed using hook cautery obtaining hemostasis along the way. I inspected dissection area. There was minor bloody oozing from the liver bed. I cauterized this until there was good hemostasis. I then suctioned out the old blood and irrigation. The gallbladder was put in an EndoCatch bag and brought out through the umbilical port site. We then desufflated the abdomen, removed the ports. The umbilical fascia was closed with a running 0 Vicryl. The skin was closed with 4-0 subcuticular Monocryl and Steri- Strips. There were no apparent complications. She was awakened in stable condition and transferred to recovery room. cc: Meir Leung MD
[2018-12-07] MEDS ORDERED: MORPHINE IV PRN (18:20)
[2018-12-07] MEDS: PERCOCET-5 PO PRN (20:06)
[2018-12-07] MEDS ORDERED: PRAVACHOL PO SCH (21:00)
[2018-12-07] MEDS: NEURONTIN PO SCH (23:23)
[2018-12-08] MEDS: HUMALOG SUBQ SCH ×5 (00:07→22:06)
[2018-12-08] MEDS: PERCOCET-5 PO PRN ×3 (00:58→22:06)
[2018-12-08] MEDS ORDERED: ROCEPHIN 1 GM in NS 50 ML IV SCH (03:00)
[2018-12-08] MEDS ORDERED: NS 2,000 ML MISC PRN (05:43)
[2018-12-08] MEDS ORDERED: TIGHT: 0.2 ML/HR FOR DIALYSIS MISC PRN (05:43)
[2018-12-08] MEDS ORDERED: HEPARIN IV PRN (05:43)
[2018-12-08 06:46] LABS: BASO# 0.01 X1000 (0.0-0.2); BASO% 0.1 % (0.0-0.8); HEMOGLOBIN 11.1 g/dL (12.0-16.0); IMM GRAN# 0.03 X1000 (0.0-0.04); IMM GRAN% 0.3 % (0.0-0.5); LYMPH# 1.42 X1000 (1.2-3.4); LYMPH% 13.2 % (20.5-51.1); MCH 26.6 PG (27-31); MCHC 34.7 g/dL (33-37); MCV 76.7 FL (81-99); MONO# 0.55 X1000 (0.11-0.59); MONO% 5.1 % (1.7-9.3); MPV 9.7 FL (7.4-10.4); NEUT# 8.73 X1000 (1.4-6.5); NEUT% 81.3 % (42.2-75.2); PLT 577 X1000 (130-400); RBC 4.17 XMIL (4.2-5.4); RDW 20.6 % (11.5-14.5); WBC 10.74 X1000 (4.8-10.8)
[2018-12-08] MEDS: APRESOLINE PO SCH ×2 (06:59→20:26)
[2018-12-08 07:22] LABS: ALB/GLOB RATIO 0.5; ALBUMIN 2.3 g/dL (3.5-5.0); DIRECT BILIRUBIN 2.3 mg/dL (0.00-0.20); TOTAL BILIRUBIN 3.47 mg/dL (0.20-1.00); TOTAL PROTEIN 6.6 g/dL (6.3-8.3)
[2018-12-08 07:28] LABS: CALCIUM 8.8 mg/dL (8.8-10.2); CREATININE 5.4 mg/dL (0.5-0.9); POTASSIUM 5.3 mmol/L (3.5-5.1)
[2018-12-08] MEDS: NORVASC PO SCH (08:33)
[2018-12-08] MEDS: PROTONIX IV SCH (08:34)
[2018-12-08] MEDS: PERIDEX MT SCH ×2 (08:35→20:26)
[2018-12-08] MEDS: TOPROL XL PO SCH (08:35)
[2018-12-08] MEDS: LANTUS INSULIN SUBQ SCH (08:39)
[2018-12-08] MEDS: ZOSYN 3.375 GM in NS 50 ML IV SCH ×2 (08:49→16:46)
[2018-12-08] MEDS: ATARAX PO PRN ×2 (08:50→20:26)
[2018-12-08] MEDS ORDERED: CHLORASEPTIC SPRAY MT PRN (11:16)
--- NOTE | 2018-12-08 12:27 | PROGRESS NOTE ---
DATE: 12/08/2018 INTERVAL HISTORY: The patient is complaining of a sore throat and expected postop mild tenderness. No nausea or vomiting. No other complaints. No acute events overnight. The patient is status post laparoscopic cholecystectomy yesterday. REVIEW OF SYSTEMS: A twelve point review of systems is negative except as per interval history. LABS: WBC 10.7, hemoglobin 11.1, hematocrit 32.0, platelets 577,000. Sodium 129, potassium 5.3, bicarb 23, BUN 52, creatinine 5.4, glucose 163 to 220. Bilirubin 3.47, AST 124, ALT 94, alkaline phosphatase 825. VITAL SIGNS: T-max 98.9 degrees, pulse 63, respirations 18, blood pressure 134/88, and O2 saturation 100% on room air. PHYSICAL EXAMINATION: General: No acute distress. Vitals: As above. HEENT: Normocephalic, atraumatic. Moist mucous membranes. No JVD. No cervical adenopathy. Cardiovascular: Regular rate and rhythm. No murmurs, rubs, or gallops noted. Pulmonary: Clear to auscultation bilaterally. No wheezing, rales, or rhonchi identified. Abdomen: Soft. Minimal expected postop tenderness without rebound or guarding. Bowel sounds decreased but present. Extremities: Peripheral pulses intact. No clubbing or cyanosis. Neurologic: Cranial nerves grossly intact. No focal deficits identified. Psychiatric: Normal mood and affect. Awake, alert, oriented x3. Skin: No new rashes or lesions identified. Minimal jaundice noted and stable. ASSESSMENT AND PLAN: 1. Acute cholecystitis. Patient is status post laparoscopic cholecystectomy yesterday. Bilirubin and alkaline phosphatase slightly down. AST and ALT slightly increased. We will continue antibiotics, pain management, and monitor labs. I suspect the rest of her liver function tests will begin coming down within the next 24 hours. 2. End-stage renal disease and hyperkalemia. Patient with mildly elevated potassium today. Today is her regular dialysis day. Nephrology is on board. Will likely go to dialysis later today which should correct her hyperkalemia. 3. Possible urinary tract infection. Continue antibiotics as above. 4. Diabetes mellitus. Control much improved. Continue to monitor. 5. Hyponatremia, mild, asymptomatic. Monitor.
--- NOTE | 2018-12-08 15:01 | ECHO REPORT ---
ORDER DATE: 12/07/2018 INDICATION: Renal disease. FINDINGS: 1. The right atrium appears normal in size at 3 cm. There is an echodensity visualized in the right atrium suggestive of either a device lead or a catheter tip. 2. There is the appearance of severe tricuspid regurgitation with an RV systolic pressure of 64, suggesting pulmonary hypertension. 3. The right ventricle appears to have a reduced RV systolic function that appears moderately reduced. 4. Moderate pulmonic insufficiency. 5. Moderate left atrial enlargement with a volume index of 35. 6. No mitral valve prolapse. Moderate to severe mitral regurgitation. No mitral stenosis identified. 7. Normal LV size, end-diastolic dimension of 5 cm. Mild left ventricular hypertrophy with a posterior and interventricular septal wall thickness of 0.7 and 1.2 cm respectively. Reduced LV systolic function with an estimated ejection fraction in the 30-35% range. There does appear to be more prominent hypokinesis of the anterior septum but there does appear to be global hypokinesis. 8. Aortic valve opens well. It is trileaflet. There is mild insufficiency. No stenosis. 9. The aorta appears normal in visualized segments. 10. No pericardial effusion is visualized. cc: MD Stacy Contreras CRNP
--- NOTE | 2018-12-08 20:19 | NEPHROLOGY PROGRESS NOTE ---
DATE: 12/08/2018 TIME SEEN: 0645. SUBJECTIVE: Ms. Viera is resting quietly in bed. States that she has discomfort to her abdomen. Continues slightly nauseated, though this is improved. OBJECTIVE: Her most recent vital signs: Her last temperature 98.2 degrees, blood pressure 129/78, heart rate 61, respirations 18. She is on room air. Last recorded saturation 100%. She has had 300 in. She has only had 30 mL out to void. LABORATORY DATA: Sodium is 129. Her potassium is 5.3. Her chlorides are 90. CO2 of 23, BUN 52, creatinine is 5.4, with a glucose of 193. The patient has an anion gap of 16. Her calcium is 8.8, albumin of 2.3. She has a TSH of 1.41. White count is 10.74, hemoglobin 11.1, hematocrit 32, platelet count 577,000. PHYSICAL EXAMINATION: General: This is a 43-year-old female. She is resting quietly in bed. Her head of the bed is elevated. She appears in slight distress secondary to abdominal discomfort, status postop cholecystectomy via laparoscopy per Dr. Leung yesterday. Today is postop day number 1. HEENT: Normocephalic, atraumatic. Conjunctiva is pale pink. She has PERRL. Mucous membranes are dry. Neck: Supple. Trachea midline. No evidence of JVD. Cardiovascular: She is regular rate and rhythm. She is without murmur or gallop. Lungs: Clear to auscultation bilaterally. Equal excursion on room air. Abdomen: Tender to all 4 quadrants. Hypoactive bowel sounds. Genitourinary: Not inspected. Minimal void with dialysis assist. Extremities: No edema, no clubbing, no cyanosis. Neurological: Alert and oriented x3. ASSESSMENT AND PLAN: 1. Chronic kidney disease, stage 5D. The patient is due for her routine dialysis treatment today. She is to be placed on a 2K bath. She is to dialyze for 3.5 hours. We will plan to pull the outpatient dry weight. 2. Electrolytes and acid-base balance with correction on dialysis. 3. Anemia. This is close to target. 4. Acute cholecystitis, status postoperative day number 1 for cholecystectomy, followed by Surgery and the primary care team. 5. Urinary tract infection. Patient is on renal dosed antibiotics. I would like to thank you for allowing us to follow with this patient. Dictated by ALEXIS Plata for Jersey Hannah MD cc: ALEXIS Plata MD
[2018-12-08] MEDS: NEURONTIN PO SCH (20:26)
--- NOTE | 2018-12-08 20:36 | GENERAL SURGERY PROGRESS NOTE ---
DATE: 12/08/2018 SUBJECTIVE: The patient feels better. She is sore. She is tolerating liquids and food without vomiting. OBJECTIVE: Vital signs: She is afebrile. Vital signs are stable. General: She is awake, alert and oriented x3. No acute distress. Gastrointestinal: Soft, appropriately tender. Incision is clean, dry, and intact. LABORATORY: White blood cell count 10, hemoglobin 11, AST 124, ALT 94, alkaline phosphatase 825, total bilirubin 3.5. ASSESSMENT AND PLAN: A 43-year-old female postoperative day 1 laparoscopic cholecystectomy for acute cholecystitis. Her bilirubin and alkaline phosphatase are slightly down. Her AST and ALT are slightly up. We will continue the antibiotics and recheck the liver function test tomorrow. If they are improving, then I would think she would be ready for discharge tomorrow. cc: Meir Leung MD
--- NOTE | 2018-12-08 22:47 | PROVIDER PROGRESS NOTE ---
Progress Note SUBJECTIVE: No acute overnight events. Afebrile. Patient reports nausea without vomiting. Abdominal pain controlled. +Flatus. No bowel movements. Tolerating clears. OBJECTIVE: Last Vital Signs Temp 97.4 F L 12/08/18 20:54 Pulse 64 12/08/18 20:54 Resp 18 12/08/18 20:54 BP 133/85 12/08/18 20:54 Pulse Ox 100 12/08/18 20:54 Height 5 ft 7 in Weight 173 lb 14.4 oz GEN: awake, alert, NAD HEENT: mild icterus, MMM, EOMI NECK: supple, no jvd CV; RRR, no murmurs PULM: CTAB no wheezing ABD: ND, BS present, trocar incisions c/d/i, mild diffuse TTP without rebound EXT: no cce LABS: 12/08/18 12/08/18 12/08/18 05:52 05:52 05:52 WBC 10.74 Hgb 11.1 L MCV 76.7 L Plt Count 577 H Sodium 129 L Potassium 5.3 H Chloride 90 L Carbon Dioxide 23 L BUN 52 H Creatinine 5.4 H Glucose 193 H D Total Bilirubin 3.47 H Direct Bilirubin 2.30 H AST 124 H ALT 94 H Alkaline Phosphatase 825 H A/P: Ms. Gayle Viera is a 43 year old woman with ESRD on HD, IDDM2, chronic anemia who was admitted with RUQ pain and elevated LFTs diagnosed with acute cholecystitis POD#1 for laparoscopic cholecystectomy. Her LFTs are slightly improved from prior. She had chronic microcytic anemia without overt GI bleeding. Prior acute hepatitis panel in 2016 was negative. IOC was negative for CBD stones. #Acute cholecystitis: continue analgesics, antiemetics, abx, post-surgical treatment as per primary team #Abnormal LFTs: from above; will recheck acute hepatitis panel; trend LFTs daily #Anemia: suspect AOCD +/- iron deficiency; will check iron studies, B12, and folate; stopped PPI given absence of overt GI bleeding #ESRD: HD per renal #Hyponatremia: ?hypervolemic hyponatremia; HD per renal #Hyperkalemia: HD as above #Thrombocytosis: acute phase reactant #IDDM2: SSI Will follow with you. Please call with questions
[2018-12-09] MEDS: APRESOLINE PO SCH ×5 (07:01→21:50)
[2018-12-09] MEDS: HUMALOG SUBQ SCH ×6 (07:01→21:19)
[2018-12-09 07:03] LABS: BASO# 0.06 X1000 (0.0-0.2); BASO% 0.6 % (0.0-0.8); EOS# 0.14 X1000 (0.0-0.7); EOS% 1.4 % (0.0-10.0); HEMOGLOBIN 10.9 g/dL (12.0-16.0); IMM GRAN# 0.04 X1000 (0.0-0.04); IMM GRAN% 0.4 % (0.0-0.5); LYMPH# 3.38 X1000 (1.2-3.4); LYMPH% 33.8 % (20.5-51.1); MCH 26.1 PG (27-31); MCV 78.9 FL (81-99); MONO# 0.79 X1000 (0.11-0.59); MONO% 7.9 % (1.7-9.3); MPV 9.4 FL (7.4-10.4); NEUT# 5.58 X1000 (1.4-6.5); NEUT% 55.9 % (42.2-75.2); PLT 545 X1000 (130-400); RBC 4.18 XMIL (4.2-5.4); RDW 21.9 % (11.5-14.5); WBC 9.99 X1000 (4.8-10.8)
[2018-12-09 07:45] LABS: ALB/GLOB RATIO 0.6; ALBUMIN 2.4 g/dL (3.5-5.0); CALCIUM 8.1 mg/dL (8.8-10.2); POTASSIUM 3.7 mmol/L (3.5-5.1); TOTAL BILIRUBIN 3.09 mg/dL (0.20-1.00); TOTAL PROTEIN 6.7 g/dL (6.3-8.3)
[2018-12-09 08:07] LABS: FERRITIN 291 ng/mL (13-150)
[2018-12-09] MEDS: PERIDEX MT SCH ×2 (08:58→21:19)
[2018-12-09] MEDS: ZOSYN 3.375 GM in NS 50 ML IV SCH ×2 (08:58→12:27)
[2018-12-09] MEDS: PRINIVIL PO SCH (08:59)
[2018-12-09] MEDS: TOPROL XL PO SCH (08:59)
[2018-12-09] MEDS: LANTUS INSULIN SUBQ SCH (09:00)
[2018-12-09] MEDS: PERCOCET-5 PO PRN (09:58)
--- NOTE | 2018-12-09 14:00 | PROGRESS NOTE ---
DATE: 12/09/2018 INTERVAL HISTORY: The patient still with mild abdominal pain, fatigue, malaise, but tolerating diet. No nausea or vomiting, afebrile. No new complaints. No acute events overnight. REVIEW OF SYSTEMS: Twelve point review of systems is negative, except as per interval history. LABS: WBC 9.9, hemoglobin 10.9, hematocrit 33.0, platelets 545. Sodium 135, potassium 3.7, bicarbonate 24. BUN 34, glucose 155, total bilirubin 3.0, AST 126, ALT 101, alkaline phosphatase 796. VITAL SIGNS: T-max 98.9 degrees, pulse is 103, respirations 22, blood pressure 151/73, O2 saturation 94% on room air. PHYSICAL EXAMINATION: General: No acute distress. Vitals: As above. HEENT: Normocephalic, atraumatic. Moist mucous membranes. Neck: No JVD. No cervical adenopathy. Cardiovascular: Regular rate and rhythm. No murmurs noted. Pulmonary: Clear to auscultation bilaterally. No wheezing, rales or rhonchi. Abdomen: Soft. Minimal expected postop tenderness without rebound or guarding. Abdominal incisions are clean, dry, intact. Bowel sounds decreased, but present. Extremities: Peripheral pulses intact. No clubbing or cyanosis. Neurologic: Cranial nerves grossly intact. No focal deficits identified. Psychiatric: Normal mood and affect. Awake, alert, oriented x3. Skin: No new rashes or lesions identified. ASSESSMENT AND PLAN: 1. Acute cholecystitis. Patient is status post laparoscopic cholecystectomy 12/07. Bilirubin and alkaline phosphatase again slightly down, but AST, ALT actually slightly increased. Suspect these will begin to trend down soon, but will watch patient and trend labs 1 more day. If her labs improve, then we will likely discharge tomorrow on oral antibiotics. 2. Possible urinary tract infection. The patient with urinalysis suggestive of infection, but urine culture returned mixed amanda. Will likely complete a course of are oral antibiotics to treat for possible urinary tract infection. IV access was lost and we have had difficulty establishing new IV access, so will go ahead and transition to PO levaquin 500 x1, then 250mg after dialysis. 3. End-stage renal disease and hyperkalemia. Nephrology on board, managing dialysis. Hyperkalemia improved, status post dialysis yesterday. 4. Diabetes mellitus, control reasonable on current therapy. Continue to monitor. 5. Hyponatremia, mild, asymptomatic. 6. Chronic systolic congestive heart failure. Echocardiogram with ejection fraction of 30 to 35. Also with moderate to severe mitral regurgitation, which may need outpatient Cardiology evaluation. Also, severe tricuspid regurgitation with elevated pulmonary pressures. No signs of significant volume overload or exacerbation at this time. Continue to monitor. [facility]
--- NOTE | 2018-12-09 14:56 | NEPHROLOGY PROGRESS NOTE ---
DATE: 12/09/2018 DATE AND TIME: Date seen is 12/09/2018. Time seen is 0830. SUBJECTIVE: Ms. Viera is resting quietly in bed. She is actually eating some breakfast today. States that she still has abdominal tenderness, but nausea is improving. OBJECTIVE: Vital Signs: Temperature 98.6, pressure 151/73, heart rate 103, respirations 22. She is on room air. Last recorded saturation 94%. She has had 1514 in. She has had 5 L removed on dialysis yesterday. LABORATORY: Her sodium is 135, potassium 3.7, chloride 96, CO2 24, BUN 31, creatinine 4, glucose is 140. She has an anion gap of 15. Her calcium is 8.1, phosphorus last checked is 6. Her albumin is 2.4. The patient has a white count of 9.99, hemoglobin 10.9, hematocrit 33, platelet count 545,000. PHYSICAL EXAMINATION: General: This is a 43-year-old female resting quietly in bed. Skin: Warm and dry. She has no acute distress. HEENT: Normocephalic, atraumatic. Conjunctiva is pale pink. She has NIC. Mucous membranes are moist. Neck: Supple. Trachea midline. No evidence of JVD. Cardiovascular: She is regular rate and rhythm. She is slightly tachycardic this a.m. No murmur or gallop appreciated. Lungs: Clear to auscultation bilaterally. Equal excursion on room air. Abdomen: Tender to palpation. She has Band-Aids to 4 quadrants secondary to laparoscopic cholecystectomy, postop day #2 today. Positive bowel sounds are noted. Genitourinary: Genitourinary not inspected. Minimal void with dialysis assist. Extremities: Have no edema, no clubbing or cyanosis. Fistula to the left upper arm. Neurologic: Alert and oriented x 3. ASSESSMENT AND PLAN: 1. Chronic kidney disease stage 5D. The patient is due for her routine dialysis treatment in the a.m. No indications for intervention today. 2. Electrolytes, acid-base balance and anemia. These are all acceptable. 3. Urinary tract infection. She remains on renal dosed antibiotics. 4. Status post laparoscopic cholecystectomy. This is followed by Surgery and Primary Care. I would like to thank you for allowing us to follow with this patient. Dictated by ALEXIS Plata for Jersey Hannah MD cc: ALEXIS Plata MD
[2018-12-09] MEDS ORDERED: LEVAQUIN PO ONE (15:39)
--- NOTE | 2018-12-09 18:00 | GENERAL SURGERY PROGRESS NOTE ---
DATE: 12/09/2018 SUBJECTIVE: The patient is doing okay. She has some soreness. No nausea or vomiting. OBJECTIVE: Vital Signs: She is afebrile. Vital signs are stable. General: She is awake, alert, no acute distress. GI: Soft. Minimal tenderness. Incision is clean, dry, and intact. LABORATORY: AST 126, ALT 101, alkaline phosphatase 796, total bilirubin 3.1. ASSESSMENT AND PLAN: A 43-year-old female status post laparoscopic cholecystectomy. She has persistent elevated liver function tests, but her bilirubin and alkaline phosphatase are trending down. The plan is to recheck her liver function tests tomorrow and be discharged on oral antibiotics. cc: Meir Leung MD
[2018-12-09] MEDS: NEURONTIN PO SCH (21:50)
[2018-12-09] MEDS: ATARAX PO PRN (22:41)
--- NOTE | 2018-12-09 22:43 | PROVIDER PROGRESS NOTE ---
Progress Note SUBJECTIVE: No acute overnight events. Afebrile. No vomiting. Reports abdominal pain diffusely.+Flatus. No BM. No rectal bleeding. Tolerating liquid diet. OBJECTIVE: Last Vital Signs Temp 97.5 F L 12/09/18 19:59 Pulse 74 12/09/18 19:59 Resp 14 12/09/18 16:26 BP 114/79 12/09/18 19:59 Pulse Ox 100 12/09/18 19:59 Height 5 ft 7 in Weight 173 lb 14.4 oz GEN: awake, alert, NAD HEENT: mild icterus, MMM, EOMI NECK: supple, no jvd CV; RRR, no murmurs PULM: CTAB no wheezing ABD: ND, BS present, trocar incisions c/d/i, mild diffuse TTP without rebound EXT: no cce LABS: 12/09/18 12/09/18 12/09/18 06:20 06:20 06:20 WBC 9.99 RBC Hgb 10.9 MCV 78.9 Plt Count 545 Sodium 135 L Potassium 3.7 D Chloride 96 L Carbon Dioxide 24 L BUN 31 H Creatinine 4.0 H Glucose 140 H Iron 44 L TIBC 286 % Saturation 15 Ferritin 291 H Total Bilirubin 3.09 H AST 126 H ALT 101 H Alkaline Phosphatase 796 H Total Protein 6.7 Vitamin B12 > 2000 H Folate 11.7 A/P: Ms. Gayle Viera is a 43 year old woman with ESRD on HD, IDDM2, chronic anemia who was admitted with RUQ pain and elevated LFTs diagnosed with acute cholecystitis POD#2 for laparoscopic cholecystectomy. Her LFTs are slightly improved from prior. She had chronic microcytic anemia without overt GI bleeding. Prior acute hepatitis panel in 2016 was negative. IOC was negative for CBD stones. I would expect slower clearance of LFTs in setting of patient on HD. #Acute cholecystitis: continue analgesics, antiemetics, abx, post-surgical treatment as per primary team #Abnormal LFTs: from above; trend LFTs daily #Anemia: suspect AOCD +/- iron deficiency; normal folate, vitamin B12 >2000, and ferritin 291, iron 44; no overt bleeding #ESRD: HD per renal #Hyponatremia: stable; HD per renal #Hyperkalemia: HD as above #Thrombocytosis: acute phase reactant #IDDM2: SSI Will follow with you. Please call with questions
[2018-12-10] MEDS: HUMALOG SUBQ SCH ×5 (00:10→19:30)
[2018-12-10] MEDS: APRESOLINE PO SCH ×3 (05:13→15:44)
[2018-12-10 06:37] LABS: BASO# 0.08 X1000 (0.0-0.2); BASO% 0.9 % (0.0-0.8); EOS# 0.21 X1000 (0.0-0.7); EOS% 2.3 % (0.0-10.0); HEMATOCRIT 31.4 % (37.0-47.0); HEMOGLOBIN 10.4 g/dL (12.0-16.0); IMM GRAN# 0.05 X1000 (0.0-0.04); IMM GRAN% 0.5 % (0.0-0.5); LYMPH# 2.99 X1000 (1.2-3.4); LYMPH% 32.5 % (20.5-51.1); MCH 26.5 PG (27-31); MCHC 33.1 g/dL (33-37); MCV 80.1 FL (81-99); MONO# 0.95 X1000 (0.11-0.59); MONO% 10.3 % (1.7-9.3); MPV 9.3 FL (7.4-10.4); NEUT# 4.93 X1000 (1.4-6.5); NEUT% 53.5 % (42.2-75.2); PLT 483 X1000 (130-400); RBC 3.92 XMIL (4.2-5.4); WBC 9.21 X1000 (4.8-10.8)
[2018-12-10] MEDS ORDERED: HEPARIN IV PRN (06:37)
[2018-12-10] MEDS ORDERED: TIGHT: 0.2 ML/HR FOR DIALYSIS MISC PRN (06:37)
[2018-12-10] MEDS ORDERED: NS 2,000 ML MISC PRN (06:37)
[2018-12-10] MEDS ORDERED: PRILOSEC PO SCH (07:00)
[2018-12-10 07:07] LABS: ALB/GLOB RATIO 0.6; ALBUMIN 2.3 g/dL (3.5-5.0); CALCIUM 7.7 mg/dL (8.8-10.2); POTASSIUM 3.8 mmol/L (3.5-5.1); TOTAL BILIRUBIN 2.58 mg/dL (0.20-1.00)
[2018-12-10] MEDS: PERIDEX MT SCH (08:45)
[2018-12-10] MEDS: LANTUS INSULIN SUBQ SCH (08:45)
[2018-12-10] MEDS: TOPROL XL PO SCH (08:46)
[2018-12-10] MEDS: PRINIVIL PO SCH (08:46)
[2018-12-10] MEDS: PERCOCET-5 PO PRN ×2 (08:50→14:11)
[2018-12-10] MEDS ORDERED: COLACE PO SCH (09:00)
[2018-12-10] MEDS: ATARAX PO PRN (09:18)
[2018-12-10 13:23] LABS: HEPATITIS PROFILE ACUTE SEE COMMENTS
--- NOTE | 2018-12-10 15:25 | GASTROENTEROLOGY PROGRESS NOTE ---
DATE: 12/10/2018 GASTROENTEROLOGY FOLLOWUP: SUBJECTIVE: Patient is resting in bed. She is feeling better. She denies any fevers, rigors, or chills. She complains of pain in her legs. Abdominal pain is improved. She denies any nausea or vomiting. Denies any blood in stools. The last one was 2 to 3 days ago. OBJECTIVE: Vital Signs: Temperature 97.6, pulse 64, respiratory rate 20, blood pressure 120/74, saturating 100% on room air. General Appearance: lying in bed, in no acute distress. HEENT: Positive pallor. Positive icterus. Neck: Supple. Abdomen: Discomfort in the periumbilical region. No rebound or guarding. Extremities: No cyanosis or clubbing. Neurologic: Alert, awake, and oriented x3. LABORATORY DATA: Hemoglobin and hematocrit are 10.4 and 31.4, white count 9.1, platelet count of 483,000. Sodium 130, potassium 3.8, chloride 97, bicarb 20, anion gap 14, BUN of 33.5, glucose of 159, calcium 7.7. Total bilirubin is 2.58, AST 80, ALT 75, alkaline phosphatase 794. Total protein is 6, albumin of 2.3. B12 more than 2000. Folate of 11.7. Blood cultures x2 negative at 48 hours. Urine culture showing mixed amanda. IMPRESSION AND PLAN: 1. Acute cholecystitis status post laparoscopic cholecystectomy postop day 3. She is being followed by the surgery team. 2. Elevated liver enzymes. Continue to follow. Likely postsurgical. we will need to recheck it again in about 3 to 6 months. 3. Anemia. Likely anemia of chronic disease and iron deficiency. She will continue to be monitored. 4. End-stage renal disease on hemodialysis per Nephrology. 5. Type 2 diabetes on sliding scale insulin. 6. Leg pain. This will be addressed by the primary team. 7. Elevated liver enzymes. Repeat the hepatitis panel. 8. Gastrointestinal prophylaxis. We will start with omeprazole. Bowel regimen with Colace. We will continue the Colace 100 mg p.o. b.i.d. We will start her on MiraLAX 17 g once daily. 9. The patient to follow up in the clinic in 4 weeks of discharge. At that time, we will follow up on liver enzymes. She will also need outpatient EGD and colonoscopy for anemia. The above plan discussed with the patient. All questions answered. Please call us with any further questions. cc: MD Meir Chen MD Reginald D. Gladish, MD MTDD
--- NOTE | 2018-12-10 15:29 | NEPHROLOGY PROGRESS NOTE ---
DATE: 12/10/2018 SUBJECTIVE: The patient resting in bed. She underwent dialysis access and plans to go to dialysis today. OBJECTIVE: Vital Signs: Temperature 97.9 degrees, pulse 63, respiratory rate 14, blood pressure 113/69. intake 1.1 liter; output 200 mL. General: Middle-aged female resting in bed. No acute distress. HEENT: Normocephalic, atraumatic. NIC. Neck: Supple without JVD. Cardiovascular: Regular rate and rhythm. Pulmonary: Clear bilateral. Abdomen: Soft, positive bowel sounds. : Not inspected. Extremities: No clubbing, cyanosis or edema. Integumentary: Skin is warm and dry. LAB DATA: WBC of 9.2, hemoglobin 10.4. Sodium 134, potassium 3.8, CO2 24, creatinine 5.0. ASSESSMENT AND PLAN: 1. Chronic kidney disease 5 D. Today is her routine dialysis day. Plan to dialyze 2 potassium bath/ultrafiltration to dry weight. 2. Urinary tract infection on appropriately-dosed antibiotics. No change needed. 3. Status post laparoscopic cholecystectomy followed by primary and Surgery. No changes are needed from a renal perspective. Can be discharged at their discretion. Dictated by ALEXIS Rushing for Jersey Hannah MD cc: Jersey Hannah MD [facility]
[2018-12-10 15:51] VITALS: BP 124/79
[2018-12-10] MEDS ORDERED: LEVAQUIN PO SCH (17:30)
[2018-12-11] MEDS ORDERED: MIRALAX PO SCH (09:00)
--- NOTE | 2018-12-11 16:14 | DISCHARGE SUMMARY ---
ADMISSION DATE: 12/07/2018 DISCHARGE DATE: 12/10/2018 DISCHARGE DISPOSITION: Home without any discharge needs. DISCHARGE CONDITION: Discharge condition stable, alert, oriented x3 without nausea and vomiting mild abdominal tenderness. Tolerating diet well. DISCHARGE DIAGNOSES: 1. Acute cholecystitis. 2. Possible urinary tract infection. 3. Chronic systolic congestive heart failure. 4. Transaminitis and hyperbilirubinemia in the setting of acute cholecystitis. 5. Hyperglycemia. 6. History of end-stage renal disease on Friday, , Friday hemodialysis. 7. History of insulin-dependent diabetes mellitus type 1. 8. Essential hypertension. 9. Anxiety. 10. Normocytic anemia likely anemia of chronic kidney disease. 11. Essential hypertension. 12. Chronic systolic congestive heart failure with ejection fraction of 35% with mitral and tricuspid regurgitation. DISCHARGE MEDICATIONS: Gabapentin 100 mg at nighttime, pravastatin 80 mg at nighttime, hydralazine 25 mg every 8 hours, clonidine 1 patch weekly every 7 days, Catapres 2, docusate sodium 100 mg daily, furosemide 20 mg daily, amlodipine 5 mg daily, insulin aspart 20 units with meals, clopidogrel 75 mg daily, metoprolol succinate 100 mg daily, ondansetron 1 tablet p.o. as needed for nausea and vomiting, levofloxacin 500 mg every 48 hours 3 tablets have been prescribed, MiraLAX 17 g daily, 15 packets have been prescribed, oxycodone APAP 5 mg/ 325 mg tablet every 8 hours as needed for pain 10 tablets have been prescribed CONSULTATION DURING HOSPITAL ADMISSION: 1. Gastroenterology Dr. Arriaza. 2. General surgery Dr. Leung. 3. Nephrology Dr. Hannah. PROCEDURES DURING HOSPITAL ADMISSION: The patient underwent laparoscopic cholecystectomy with operative cholangiogram for acute cholecystitis on 12/07/2018. VITALS: At the time of discharge temperature of 97.5 degrees, pulse 64, respiratory rate 20, blood pressure 124/79, saturating 100% room air. DISCHARGE PHYSICAL EXAMINATION: At the time of discharge, the patient is alert and oriented x3, not in any acute distress. No pallor. Mild conjunctival icterus. No cyanosis or clubbing. Oral cavity is moist. She is eating her dinner. Air entry bilaterally equal, l no wheeze, rhonchi, crackles. S1, S2 normal. No murmur or gallop. She has a right-sided dialysis neck catheter. Abdomen: Soft, nontender. No bilateral lower extremity edema. She has mild tenderness at the laparoscopy port site. She is alert oriented x3. SIGNIFICANT LABS: During hospital admission: She had WBC of 13,013 at the time of admission which had decreased to 9000 at the time of discharge. Her hemoglobin was 10.4, and platelet was 483,000at the time of discharge. She did have elevated BUN and creatinine in the setting of chronic kidney disease stage 3. Her blood glucose was 536 on admission which was 157 at the time of discharge. She had elevated total bilirubin of 4.9 on admission which had decreased to 2.5 at the time of discharge. Her alkaline phosphatase was decreasing from 953 to 794 at the time of discharge. She was provided comprehensive metabolic panel lab slip. IMAGING: During hospital admission: Abdominal ultrasound on admission had cholelithiasis with prominent thickening of the gallbladder wall suspicious for cholecystitis. There was 8 mm gallbladder wall polyp. Echocardiogram had suggested ejection fraction of 30 to 35 percent with global hypokinesia with severe tricuspid regurgitation, moderate to severe mitral regurgitation. Gallbladder biopsy suggested presence of chronic cholecystitis and cholelithiasis. HOSPITAL COURSE SUMMARY: Ms. Viera is 43 -year-old woman who presented with chief complaints of abdominal pain, nausea, and vomiting of about 2 days duration. In the emergency room she was found to have prominent jaundice, obstructive liver function test with negative hepatitis panel and leukocytosis. She was started on intravenous antibiotic for suspected acute cholecystitis and surgery was consulted. The patient underwent laparoscopic cholecystectomy which she tolerated well. Her postoperative course was essentially benign and she has been tolerating diet well. At the time of discharge to her antibiotics were changed to p.o. when she was discharged on p.o. antibiotics. She was also provided a prescription for a repeat liver function test and was advised to follow up with gastroenterology and surgery as an outpatient. She did have elevated liver function test with elevated alkaline phosphatase and total bilirubin on admission, which was thought to be in the setting of acute cholecystitis. After laparoscopic cholecystectomy antibiotic therapy it was trending down. The patient was advised to be advised to follow up with Gastroenterology for work in upper and lower endoscopy to workup for chronic anemia. She was also advised to follow up with surgery Dr. She was also advised to follow up with a heart doctor considering her chronic systolic congestive heart failure and mitral and tricuspid regurgitation. At the time of discharge, her sepsis and hyperglycemia had resolved. Plan of care was extensively discussed with her. She was allowed to ask questions and all of her questions were satisfactorily answered more than 30 minutes were spent in discharging this patient. cc: Tom Davies MD
== END 2018-12-10 19:18 | disposition home or self-care (01) | DRG 417 ==
LOC: ED 19:43 → SUATTDRO 12-07 05:27 → 4N 12-07 05:27
PROVIDERS: ATTEND Internal Medicine
CPT/HCPCS: 71010; 71045; 74300; 76705; 80048; 80053; 80074; 80076; 81001; 82009; 82150; 82607; 82728; 82746; 82805; 82948; 83036; 83540; 83550; 83690; 84100; 84132; 84443; 85025; 87040; 87088; 88304; 93005; 93306; 94799; 96365; 96367; 96372; 96375; 99284; A9270; C1751; C9113; J0131; J0330; J0500; J0696; J1100; J1644; J1815; J2250; J2405; J2543; J3010; J7030; J7120; Q9966; Q9967; S0164; XXXXX

== ENCOUNTER 2018-12-26 06:57 | Inpatient (IN) ==
--- NOTE | 2018-12-26 07:24 | PROVIDER DOCUMENTATION ---
HPI-General Adult - General Chief Complaint: General Adult Stated Complaint: PORT CAME OUT.. Time Seen by Provider: 12/26/18 07:16 Source: patient, old records Allergies/Adverse Reactions: Patient Allergies Allergy/AdvReac Type Severity Reaction Status Date / Time No Known Allergies Allergy Verified 12/02/15 00:59 Home Medications: Home Medication List Medication Instructions Recorded Confirmed Last Taken Type PRAVAstatin [Pravachol] 80 mg PO QHS 12/02/15 12/26/18 12/25/18 History Amlodipine [Norvasc] 5 mg PO DAILY 12/06/18 12/26/18 12/25/18 History Clonidine [Catapres-Tts 2] 1 patch TD Q7D 12/06/18 12/26/18 12/19/18 History Clopidogrel [Plavix] 75 mg PO DAILY 12/06/18 12/26/18 12/25/18 History Docusate Sodium [Colace] 100 mg PO DAILY PRN 12/06/18 12/26/18 12/25/18 History Furosemide 20 mg PO DAILY 12/06/18 12/26/18 12/25/18 History Gabapentin 1 cap PO QHS 12/06/18 12/26/18 12/25/18 History Hydralazine [Apresoline] 25 mg PO Q8H 12/06/18 12/26/18 12/25/18 History Insulin Aspart [Novolog Flexpen] 20 units SUBQ AC 12/06/18 12/26/18 12/25/18 History Metoprolol Succinate E.r. [Toprol 100 mg PO DAILY 12/06/18 12/26/18 12/25/18 H istory Xl] Ondansetron HCl [Zofran] 1 tab PO DIRECTED 12/06/18 12/26/18 Unknown History Oxycodone/APAP 5 mg/325 mg 1 ea PO Q8H PRN #10 tab 12/10/18 12/26/18 12/25/18 Rx [Percocet-5] Polyethylene Glycol 3350 [Miralax] 17 gm PO DAILY #15 powder, packet 12/10/18 12/26/18 12/25/18 Rx Insulin Glargine,Hum.rec.anlog 30 unit SQ DAILY 12/26/18 12/26/18 12/25/18 History [Lantus Solostar] - History of Present Illness -Gen Adult Nature of Presenting Problems: pt w/ hx of ESRD, IDDM, s/p lap [facility] December 07, ? hx of SCA, presents noting she is scheduled for routine dialysis today but her port "fell out." she was seen here 2 days ago for a fall and closed head injury, with no mention of problems w/ port at that time (she dialyzed that day prior to fall). the port was placed at [facility], and she says called her dialysis center this a.m. to report the problem and has already been scheduled to have this replaced Friday (2 days). Review of Systems - Adult - REVIEW OF SYSTEMS - ADULT Constitutional: reports: no symptoms reported Eyes: reports: no symptoms reported Ears, Nose, Mouth & Throat: reports: no symptoms reported Cardiovascular: reports: no symptoms reported Respiratory: reports: no symptoms reported Gastrointestinal: reports: no symptoms reported Genitourinary: reports: no symptoms reported Musculoskeletal: reports: no symptoms reported Integumentary: reports: no symptoms reported Neurological: reports: no symptoms reported Psychiatric: reports: no symptoms reported Endocrine: reports: no symptoms reported Hematologic/Lymphatic: reports: no symptoms reported Allergic/Immunologic: reports: no symptoms reported All Other Systems: Reviewed and Negative Past History - Adult - PAST MEDICAL HISTORY-ADULT Review of Records: reports: Old Records Reviewed Major Childhood Illnesses: reports: denies history Cardiovascular: reports: HTN, hyperlipidemia Respiratory: reports: denies history Gastrointestinal: reports: denies history Obstetrical/Gynecological: reports: denies history Genitourinary: reports: kidney disease Musculoskeletal: reports: chronic pain Neurological: reports: denies history Endocrine/Immune: reports: denies history Other Conditions: reports: denies history - PRIOR SURGERIES/PROCEDURES Surgical/Procedure History: reports: reviewed, not pertinent - PRIOR HOSPITALIZATIONS Prior Hospitalizations: reports: for other non-related - IMMUNIZATION STATUS Childhood Immunizations: See Nurse Assessment Flu Vaccine: See Nurse Assessment - FAMILY HISTORY Family History: reviewed, not pertinent Physical Exam-General - PHYSICAL EXAM-ADULT Initial Vital Signs Reviewed: Yes - CONSTITUTIONAL General Appearance: appears well (extracted dialysis catheter laying at bedside with patient), alert, no apparent distress - EYES Eyes: negative: sclera injected, scleral icterus - HEAD, EARS, NOSE, MOUTH & THROAT HENMT: normocephalic/atraumatic, moist mucous membranes - NECK Neck: full range of motion - RESPIRATORY Respiratory: lungs clear, normal breath sounds - CARDIOVASCULAR Cardiovascular: normal peripheral pulses, regular rate, rhythm - GASTROINTESTINAL (ABDOMEN) Abdominal Exam: non tender, soft - LYMPHATIC Lymphatic: no adenopathy - MUSCULOSKELETAL Back Exam: normal inspection, no CVA tenderness Extremity: normal gait Peripheral Pulses: radial (R): 2+, radial (L): 2+ - SKIN Integumentary: normal turgor, warm/dry. negative: rash - NEUROLOGIC Neurologic: telephone assembler II-XII nml as tested, grossly normal - PSYCHIATRIC Psych/Mental Status: normal mood/affect, normal thought content Progress - PLAN OF CARE/RESULTS Progress/Plan/Lab Results: Vital Signs - 8 hr 12/26/18 07:10 Temperature 97.3 F L Pulse Rate 87 Respiratory Rate 20 Blood Pressure 157/105 O2 Sat by Pulse Oximetry 100 Orders Category Date Time Status CHEST-1 VIEW [RAD] Stat Exams 12/26/18 07:16 Ordered CBC WITH DIFF [HEME] Stat Lab 12/26/18 07:16 Uncollected CMP [COMPREHENSIVE METABOLIC PANEL] [CHEM] Stat Lab 12/26/18 07:16 Uncollected Result Diagrams: 12/26/18 07:36 12/26/18 07:36 - REASSESSMENT Reassessment #1 Time Reassessed: 09:27 Status: unchanged (pt labs reveal no urgency (K+); disc'd w/ Dr Hannah who advised he prefers pt admitted today w/ surgical consult for tunnel cath replacement, followed by dialysis here.) - CONSULTS/PCP/HOSPITALIST Notification #1 *Consult/PCP/Hospitalist*: Dr. Alonso (G Surg) Time Discussed: 09:33 Consult Disposition: other (he will see patient once admitted, and replace a dialysis catheter.) #2 Consult: Hugo (Hospitalist) Consult Disposition: Admit Departure - Departure Date of Disposition Decision: 12/26/18 Time of Disposition Decision: 10:20 DIAGNOSIS: Malfunction of device, Uncontrolled diabetes mellitus Disposition: ADMITTED INPATIENT 09 Certified Medical Emergency: Emergent Condition: Stable - Critical Care Note This patient required my direct & personal management of CC.: No Attestation - Physician/ ANNELISE Attestation The physician spent face to face time with patient:: Yes Advanced Practice Provider documentation review:: Supervising physician onsite and consulted in the evaluation and care of this patient. The physician did have a face to face encounter with the patient.
--- NOTE | 2018-12-26 07:34 | Diag Imaging Result Doc PS360 ---
CHEST-1 VIEW - 12/26/2018 INDICATION: dialysis catheter "fell out" COMPARISON: 12/07/2018 FINDINGS: There is no dialysis catheter or remnant. Heart size is borderline enlarged. No infiltrates or edema. No pneumothorax or pleural effusion. IMPRESSION: Dialysis catheter absent. No acute disease. Electronically signed by Tonny Daley 12/26/2018 7:31 AM
[2018-12-26 07:52] LABS: BASO# 0.06 X1000 (0.0-0.2); BASO% 0.7 % (0.0-0.8); EOS# 0.11 X1000 (0.0-0.7); EOS% 1.3 % (0.0-10.0); HEMATOCRIT 35.2 % (37.0-47.0); HEMOGLOBIN 11.7 g/dL (12.0-16.0); IMM GRAN# 0.04 X1000 (0.0-0.04); IMM GRAN% 0.5 % (0.0-0.5); LYMPH# 1.14 X1000 (1.2-3.4); LYMPH% 13.1 % (20.5-51.1); MCH 27.3 PG (27-31); MCHC 33.2 g/dL (33-37); MCV 82.2 FL (81-99); MONO# 0.61 X1000 (0.11-0.59); MPV 9.5 FL (7.4-10.4); NEUT# 6.72 X1000 (1.4-6.5); NEUT% 77.4 % (42.2-75.2); PLT 409 X1000 (130-400); RBC 4.28 XMIL (4.2-5.4); RDW 21.7 % (11.5-14.5); WBC 8.68 X1000 (4.8-10.8)
[2018-12-26 08:31] LABS: ALB/GLOB RATIO 0.7; ALBUMIN 2.9 g/dL (3.5-5.0); CALCIUM 8.5 mg/dL (8.8-10.2); POTASSIUM 3.6 mmol/L (3.5-5.1); TOTAL BILIRUBIN 3.18 mg/dL (0.20-1.00); TOTAL PROTEIN 7.2 g/dL (6.3-8.3)
[2018-12-26] MEDS ORDERED: HUMULIN R IV ONE (09:20)
--- NOTE | 2018-12-26 10:12 | ED EKG INTERP ---
This chart was entered by Karla Browne Scribe, acting as scribe for Dileep Montero MD. EKG Interpretation - EKG Time of EKG reading by physician:: 07:03 EKG Read and Signed by:: Dileep Montero EKG Interpretation (*Must complete 3 of following elements*): Normal Rate: 70 Rhythm: Normal sinus rhythm [place]: normal ST Wave: normal Attestation - Physician/ ANNELISE Attestation Patient care was provided by Advanced Practice Provider:: No The physician spent face to face time with patient:: Yes Advanced Practice Provider documentation review:: Supervising physician onsite and consulted in the evaluation and care of this patient. The physician did have a face to face encounter with the patient. This chart was documented by the indicated scribe, (Karla Browne Scribe) and accurately reflects the services I performed and decisions made by me, Dileep Montero MD, as attested by the provider's signature.
[2018-12-26 10:32] LABS: INR 1.07; PROTIME 14.8 Seconds (11.0-16.0)
--- NOTE | 2018-12-26 10:42 | GENERAL SURGERY CONSULTATION ---
DATE: 12/26/2018 HISTORY OF PRESENT ILLNESS: Ms. Viera has been on dialysis since October, had a tunneled catheter placed in [place] yesterday. Today, she went and the catheter had fallen out. She now has no way to dialyze. MEDICATIONS: 1. Pravachol 80 mg at bedtime. 2. Norvasc 5 mg daily. 3. Catapres TTS-2 patch 1 every 7 days. 4. Plavix 75 mg daily. 5. Colace 100 mg p.r.n. 6. Lasix 20 mg daily. 7. Gabapentin 1 at night, I do not know the dose. 8. Apresoline 25 mg q.8 hours. 9. Insulin 20 units subcutaneously in the morning. 10. Toprol-XL 100 mg daily. 11. Zofran as needed. 12. Levaquin 500 mg every 48 hours. 13. Percocet 5. 14. MiraLAX daily. ALLERGIES: She has no known drug allergies. PAST MEDICAL AND SURGICAL HISTORY: The patient has a history of recent cholecystectomy on December [address] Leung. She has a past history of insulin-dependent diabetes, endstage renal disease, hyperlipidemia, hypertension. FAMILY HISTORY: Noncontributory. SOCIAL HISTORY: As noted above. REVIEW OF SYSTEMS: As noted above. PHYSICAL EXAMINATION: Vital Signs: She is afebrile. Heart rate 87, blood pressure 157/105. Neck: She has an IV in the left side of her neck. The previous tunneled catheter was right upper anterior chest. Chest: Bilateral breath sounds. Heart: Regular rate and rhythm. Abdomen: Soft. Neurologic: She is awake, alert and oriented. ASSESSMENT: Displaced tunneled catheter. PLAN: Replacement of a new tunneled catheter, probably on the opposite side. I have discussed this with her, she understands. We will plan to proceed today at Dr. Hannah's request. cc: Andi Alonso MD
--- NOTE | 2018-12-26 11:38 | HISTORY AND PHYSICAL ---
HEARINGS REPORTER: Jersey Hannah MD. CHIEF COMPLAINT: Displaced hemodialysis catheter. HISTORY OF PRESENT ILLNESS: Mrs. Viera is a 43-year-old -[place] female known to our service with a history of ESRD on hemodialysis. She was discharged from our service about 2 weeks ago for acute cholecystitis status post cholecystectomy. She also has a history of multiple other medical problems. Apparently, 2 days ago she had a mechanical trip and fall after her knee "gave out." She came to the ER here and had a head CT done, which was negative, she was discharged from the ER. This morning, she reports that she woke up and her hemodialysis catheter had essentially spontaneously fallen out. Unclear exactly how it did come out but when she woke up it was indeed in her bed. She came to the ER for evaluation. Chest x-ray was done, did not show anything acute. Her laboratory data was also done, which did show chronic changes of kidney disease but also shows a glucose of 530 without evidence of ketosis. Her LFTs are all still elevated but she denies any overt abdominal pain or fever. Dr. Hannah and Dr. Alonso have both been consulted from the ER and the plan is to surgically place a new catheter and dialyze her later today. We have put in orders for observation status. PAST MEDICAL HISTORY: 1. ESRD on hemodialysis Friday, , Friday. 2. Type 2 diabetes mellitus requiring insulin. 3. Systolic heart failure, EF 35%. 4. Recent cholecystitis status post cholecystectomy. 5. Hypertension. 6. Anxiety. 7. Anemia of chronic disease. SURGICAL HISTORY: She had a laparoscopic cholecystectomy on 12/07/2018, tubal ligation, right chest dialysis catheter, left wrist surgery. SOCIAL HISTORY: No tobacco, alcohol, or drug use. FAMILY HISTORY: Significant for hypertension, kidney disease, prostate cancer. ALLERGIES: No known drug allergies. HOME MEDICATIONS: Yet to be compiled, however, discharge medications from last admission: Neurontin 100 mg at bedtime, pravastatin 80 mg at bedtime, hydralazine 25 mg every 8 hours, clonidine patch weekly every 7 days which is a Catapres 2 patch, Colace 100 mg daily, Lasix 20 mg daily, Norvasc 5 mg daily, subcutaneous insulin, Plavix 75 mg daily, metoprolol succinate 100 mg daily, Zofran 4 mg as needed, MiraLAX 17 g daily. REVIEW OF SYSTEMS: A 14-point review of systems obtained and found to be negative with the exception of the HPI. PHYSICAL EXAMINATION: VITAL SIGNS: Blood pressure 157/105, heart rate is 87, respiratory rate 20, O2 saturation 100% on room air, temperature is 97.3. GENERAL: This is a chronically ill disheveled-appearing 43-year-old - [place] female lying in the hospital bed in no acute distress. NEUROLOGICAL: Awake, alert, and oriented. Follows commands. No focal deficits. HEENT: Head is atraumatic, normocephalic. Pupils equal, round, and reactive to light. Oral mucosa is moist. NECK: Trachea is midline. There is no JVD. CHEST: Diminished but clear to auscultation bilaterally. CARDIOVASCULAR: Regular rate and rhythm. S1, S2 is noted. There are no murmurs. GASTROINTESTINAL: Surgical incisions in the right upper quadrant are clean, dry, and intact. No sign of infection. Abdomen is soft, nondistended. Bowel sounds are hypoactive. EXTREMITIES: 1-2+ edema bilaterally. Pulses diminished at 1+. DIAGNOSTIC DATA: Chest x-ray is negative. WBC 8.68, hemoglobin 11.7, hematocrit 35.2, platelet count 409. Sodium 129, potassium 3.6, chloride 90, CO2 25, anion gap 14, BUN 25, creatinine 4, glucose 530, calcium 8.5, total bilirubin 3.18, AST 68, ALT 55, alkaline phosphatase 985, albumin 2.9. ASSESSMENT AND PLAN: 1. Displaced hemodialysis catheter: Plan is for surgical replacement today by Dr. Alonso with subsequent hemodialysis by Dr. Hannah. 2. DM 2 requiring insulin diabetes with hyperglycemia: IV insulin has been given by the ER. No evidence of ketosis at this time. Will monitor her blood sugar and treat accordingly with sliding scale insulin, continue her home insulin after surgery. 3. End-stage renal disease on hemodialysis: The patient is not acidotic. Her anion gap is essentially normal. She is slightly volume overloaded but the plan is for dialysis later today. Overall, her volume status, hemoglobin and hematocrit, and acid-base balance are all adequate. 4. Chronic Systolic CHF: Recent echo revealed an EF of 35%. Only minimal volume overload noted, which will be remedied with HD. Will continue home meds, overall, her CHF is stable. 5. Recent cholecystitis status post cholecystectomy: The patient has continued LFT elevation but denies any overt abdominal pain. She also has underlying systolic congestive heart failure, which is likely contributing with passive venous congestion. Will continue to trend her CMP on a daily basis. If she begins having symptoms or labs worsen, would consider repeat US. 6. HTN: continue home meds. Patient seen and examined by me face to face, all the laboratory, images and vitals signs were reviewed, her dialysis catheter has been displaced, surgery department as well as nephrology has been consulted, laboratory also showed elevated LFTs, even though she had already a cholecystectomy done, likely we need to consult GI to evaluate this patient, I agree with the rest of the assessment and plan, Rasta Mohr MD. Dictated by ALEXIS Hernández for Rasta Lindquist MD cc: ALEXIS Hernández MD MTDD
[2018-12-26] MEDS ORDERED: APRESOLINE IV PRN (11:47)
[2018-12-26] MEDS: HUMALOG SUBQ SCH ×2 (11:54→22:13)
[2018-12-26] MEDS ORDERED: DIPRIVAN 1% ONE (12:21)
[2018-12-26] MEDS ORDERED: COLACE PO PRN (12:40)
[2018-12-26] MEDS ORDERED: ZOFRAN PO PRN (12:45)
[2018-12-26] MEDS ORDERED: AMIDATE ONE (13:15)
[2018-12-26] MEDS ORDERED: HEPARIN ONE ×2 (13:16→13:17)
[2018-12-26] MEDS ORDERED: XYLOCAINE 1%/EPI 1:100,000 ONE (13:17)
[2018-12-26] MEDS ORDERED: NS 250 ML ONE (13:17)
[2018-12-26] MEDS ORDERED: KEFZOL 1 GM/D5W 1 GM/50 ML IVPB ONE (13:21)
[2018-12-26] MEDS ORDERED: QUELICIN (DOSE) ONE (14:45)
[2018-12-26] MEDS: ZOFRAN ONE (15:20)
[2018-12-26] MEDS: APRESOLINE ONE (15:25)
[2018-12-26] MEDS ORDERED: NS 2,000 ML MISC PRN (16:21)
--- NOTE | 2018-12-26 20:27 | OPERATIVE NOTE ---
PROCEDURE DATE: 12/26/2018 PROCEDURE: Placement of left internal jugular vein tunneled catheter with ultrasound and fluoroscopic guidance. SURGEON: Andi Alonso MD. ANESTHESIOLOGY CRNA: Latosha. PREOPERATIVE DIAGNOSES: 1. Chronic kidney disease 5. 2. Displaced tunneled catheter. POSTOPERATIVE DIAGNOSES: 1. Chronic kidney disease 5. 2. Displaced tunneled catheter. DESCRIPTION OF PROCEDURE: Satisfactory general endotracheal anesthesia was achieved. The left side of the neck and upper anterior chest were prepped and draped in a sterile fashion. We imaged the left internal jugular vein and found it to be appropriate. We anesthetized the skin, made a stab incision, accessed the left internal jugular vein, and passed the guidewire easily. We then chose a 28 cm precurved catheter, anesthetized the skin below the clavicle, made an incision, and tunneled the catheter from the subclavian incision to the neck incision. We then dilated the tract sequentially, passed the dilator and introducer sheath over the guidewire, removed the dilator and guidewire, and introduced the GlidePath catheter into the right atrium. We were able to aspirate blood from each easily. We then flushed each with strong heparin that was forced 5000 units/mL. There was 2 mL in one lumen and 2 mL in the other lumen. We secured the flange to the skin with a 3-0 nylon. We closed the skin of the neck incision with a 4-0 Polysorb subcuticular stitch. Telfa and sterile OpSite dressings were applied. She tolerated it well and was awakened at the time of this dictation. cc: Andi Alonso MD
[2018-12-26] MEDS: NORCO-7.5 PO PRN (21:18)
--- NOTE | 2018-12-26 22:44 | NEPHROLOGY CONSULTATION ---
DATE: 12/26/2018 REASON FOR CONSULTATION: Assistance with management. HISTORY OF PRESENT ILLNESS: Ms. Viera is a 43-year-old woman who is well known to us. She has diabetes, hypertension, and peripheral vascular disease, as well as end-stage kidney disease. She has been dialyzing with a tunneled dialysis catheter because she has not had access to a more permanent dialysis access. Her catheter came out overnight so she came to the emergency room. Her initial evaluation found her blood pressure was moderately elevated at 157/105. Her laboratory data found marked hyperglycemia with glucose of 530, but anion gap of only 14. This is being treated medically and she was taken to the operating room by Dr. Alonso for tunneled catheter placement. She is currently receiving dialysis. No nausea, vomiting, chest pain, shortness of breath, etc. PAST MEDICAL HISTORY: As above. HOME MEDICATIONS: Include pravastatin, clopidogrel, furosemide, gabapentin, hydralazine, ondansetron, clonidine, docusate, metoprolol, insulin, amlodipine, polyethylene glycol, oxycodone. ALLERGIES: None. SOCIAL HISTORY: Lives in [place]. No alcohol or tobacco. FAMILY HISTORY: Positive for ESRD. REVIEW OF SYSTEMS: Otherwise noncontributory. PHYSICAL EXAMINATION: Vital Signs: Blood pressure 151/79, heart rate 89, respirations 20, temperature 99.8 degrees. Generally: No acute distress. Skin: Warm and dry. HEENT: Conjunctivae are pink. Neck: Veins are not distended. Heart: Regular. No gallops. Lungs: Equal. No crackles or wheezes. Abdomen: Soft and nontender. Bowel sounds present. Extremities: No edema, clubbing or cyanosis. IMPRESSION: Chronic kidney disease 5D. She is undergoing her routine dialysis at the time of examination. Electrolytes, acid-base, volume status, anemia all in target. Blood pressure is above target but acceptable. Her hyperglycemia is being managed by the primary team. Laboratory data also discloses bilirubin 3.18, with alkaline phosphatase of 985. It is not clear to me why she has this obstructive pattern. Certainly it could be related to medications. She did have a recent cholecystectomy. I will repeat her laboratory data in the morning. If persistent she may need imaging. cc: Jersey Hannah MD
[2018-12-27] MEDS: NEURONTIN PO SCH ×3 (00:47→23:19)
[2018-12-27] MEDS: PRAVACHOL PO SCH ×2 (00:48→23:17)
[2018-12-27] MEDS: APRESOLINE PO SCH ×5 (05:54→23:23)
[2018-12-27 07:28] LABS: HEMATOCRIT 38.5 % (37.0-47.0); HEMOGLOBIN 12.4 g/dL (12.0-16.0); MCH 27.1 PG (27-31); MCHC 32.2 g/dL (33-37); MCV 84.1 FL (81-99); MPV 9.6 FL (7.4-10.4); RBC 4.58 XMIL (4.2-5.4); RDW 22.2 % (11.5-14.5); WBC 13.89 X1000 (4.8-10.8)
[2018-12-27 07:31] LABS: ALB/GLOB RATIO 0.7; ALBUMIN 2.8 g/dL (3.5-5.0); TOTAL BILIRUBIN 5.37 mg/dL (0.20-1.00); TOTAL PROTEIN 7.1 g/dL (6.3-8.3)
[2018-12-27 07:40] LABS: ALBUMIN 2.8 g/dL (3.5-5.0); CALCIUM 8.7 mg/dL (8.8-10.2); CREATININE 3.5 mg/dL (0.5-0.9); PHOSPHORUS 3.7 mg/dL (2.7-4.5); POTASSIUM 4.7 mmol/L (3.5-5.1)
--- NOTE | 2018-12-27 08:32 | GENERAL SURGERY PROGRESS NOTE ---
DATE: 12/27/2018 Ms. Viera dialyzed yesterday uneventfully. Her catheter functioned satisfactorily. Apparently, she is going to be discharged today. She has an appointment in [place] tomorrow for some type of followup regarding her access apparently. cc: Andi Alonso MD
[2018-12-27] MEDS: HUMALOG SUBQ SCH ×8 (08:46→23:17)
[2018-12-27] MEDS ORDERED: MIRALAX PO SCH (09:00)
[2018-12-27] MEDS: CATAPRES-TTS-2 TD SCH ×2 (11:19→12:32)
[2018-12-27] MEDS: LASIX PO SCH ×2 (12:26→12:50)
[2018-12-27] MEDS: TOPROL XL PO SCH (12:27)
[2018-12-27] MEDS: NORVASC PO SCH (12:27)
[2018-12-27] MEDS: LANTUS INSULIN SUBQ SCH ×2 (12:30→12:41)
[2018-12-27] MEDS: APRESOLINE ONE (12:31)
[2018-12-27] MEDS: ZOFRAN ONE (12:32)
[2018-12-27] MEDS: NORCO-7.5 PO PRN (12:54)
--- NOTE | 2018-12-27 13:39 | PROGRESS NOTE ---
DATE: 12/27/2018 SUBJECTIVE: The patient is resting in bed. She is complaining of abdominal pain around the periumbilical area. She had a bowel movement but apparently the stool was hard. I offered her a suppository but she refused and actually, this patient has been refusing p.o. treatment as well. She has been started on a stool softener. Her catheter has been replaced and actually she already had dialysis. Her LFTs are elevated. She is not having fever or chills but I will consult gastroenterology department to evaluate this patient. OBJECTIVE: Vital Signs: Temperature 97.8 degrees, pulse 79, respiratory rate 24, blood pressure 97/70, oxygen saturation 94% on nasal cannula. HEENT: Head normocephalic. No trauma. PERRLA. Neck: Supple. No JVD. No masses. Central trachea. Chest: Clear to auscultation. No wheezing. No rales. She does have a new dialysis catheter at the level of the left upper thoracic area. Abdomen: Soft. Tenderness to palpation at the level of the periumbilical area. No signs of peritoneal irritation. Positive bowel sounds. Extremities: There is 1+ lower extremity edema. No clubbing. No cyanosis. Neurological Examination: The patient is alert and oriented x3. No focal deficits. Laboratory: WBC 13.8, hemoglobin 12.4, hematocrit 38.5, platelets 372,000. Sodium 135, potassium 4.7, chloride 93, bicarbonate 24, BUN 18, creatinine 3.5, glucose 239, calcium 8.7. Total bilirubin 5.3, AST 84, ALT 51, alkaline phosphatase 836, albumin 2.8. ASSESSMENT AND PLAN: 1. Displaced hemodialysis catheter. Surgery department already replaced it and it looks like it is working fine. Actually, this patient already had hemodialysis. 2. Type 2 diabetes mellitus. Aware. Continue with the same management for now. I will readjust her medications in the morning. 3. End-stage renal disease, on hemodialysis. Continue with dialysis as scheduled. Nephrology department on board. 4. Chronic systolic congestive heart failure. It looks like recently she had an echocardiogram that showed an ejection fraction of 35%. I do not think she has a lot of fluid, minimal volume overload. She is not complaining of shortness of breath or chest pain. 5. Recent cholecystitis, status post cholecystectomy. Her liver function tests are still elevated. She is complaining today of abdominal pain but not at the level of the right upper quadrant. It is located at the level of the periumbilical area. I will get gastroenterology department to evaluate this patient. 6. Hypertension. Continue home medication. Seems to be more stable today. cc: Rasta Lindquist MD
--- NOTE | 2018-12-27 15:41 | Diag Imaging Result Doc PS360 ---
US ABDOMEN-COMPLETE - 12/27/2018 INDICATION: Obstructive Jaundice COMPARISON: 12/07/2018 FINDINGS: The liver is moderately fatty. No liver masses. No biliary dilation. Common bile duct measures 3.3 mm. The pancreas is obscured. The spleen and both kidneys are normal. Spleen size is 9.6 x 3.6 cm. Gallbladder is absent. Aorta, IVC, and main portal vein are patent. No free fluid. IMPRESSION: Mild fatty liver. Negative for biliary obstruction. Electronically signed by Tonny Daley 12/27/2018 3:39 PM
--- NOTE | 2018-12-27 20:04 | GASTROENTEROLOGY CONSULTATION ---
DATE: 12/27/2018 ATTENDING PHYSICIAN: Dr. Wade. PRIMARY CARE: Dr. Hannah. REASON FOR CONSULTATION: Elevated liver enzymes. HISTORY OF PRESENT ILLNESS: Ms Viera is 43 year female admitted to the hospital for displaced hemodialysis catheter. She was seen by Dr. Alonso and she had a replacement of hemodialysis catheter done over the weekend. On workup she was noted to have elevated liver enzymes. Her liver enzymes were elevated on her last admission as well and was at that time thought to be due to liver injury secondary to cholecystectomy but her liver enzymes persisted to be elevated and she had direct hyperbilirubinemia. Gastroenterology was consulted for further management. PAST MEDICAL HISTORY: End-stage renal disease on hemodialysis on Friday, , Friday, type 2 diabetes requiring insulin, systolic heart failure EF of 35%, recent cholecystitis status post cholecystectomy, hypertension, anxiety, anemia of chronic disease. PAST SURGICAL HISTORY: Laparoscopic cholecystectomy 12/07/2018 and intraoperative cholangiogram did not show any evidence retained stones, tubal ligation, right chest dialysis catheter, left wrist surgery. SOCIAL HISTORY: No history tobacco, alcohol, illicit drugs. FAMILY HISTORY: Significant hypertension, kidney disease and prostate cancer. ALLERGIES: No known drug. MEDICATIONS IN THE HOSPITAL: Included Neurontin, Pravachol, Norvasc, Catapres, Colace, Pepcid 20 mg once daily, Lasix, Apresoline and hydrocodone/acetaminophen, Lantus and Humalog, metoprolol, MiraLAX once daily and insulin Humulin regular 15 units IV 1. She is currently on diabetic diet. REVIEW OF SYSTEMS: Denied any fevers, rigors, chills, chest pain, shortness of breath, dyspnea, no vomiting blood, denies any blood in the stools. She denies any neurologic complaints. She does complain of some soreness in her abdomen and she feels constipated. VITALS: Temperature of 98.1 degrees, pulse of 90, respiratory 24, blood pressure 140/95, saturating 100% on nasal cannula, body weight of 185 pounds, BMI 29 kg. General: This is moderately built lying in bed in no acute distress. HEENT: No pallor and icteric sclerae. Pupils equal, reactive to light. Neck: Supple. Abdomen: Protuberant, discomfort with palpation no rebound or guarding . Extremities: No cyanosis, clubbing. Neuro: Alert, awake, oriented. LABS: Hemoglobin and hematocrit 12.4 and 38.5, white count of 13.89, platelet count of 372,000, sodium 135, potassium 4.7, chloride 93, bicarb 20, anion gap 18, BUN of 18, creatinine of 3.5, glucose of 39, calcium 8.7, phosphorus 3.7, total bilirubin is 5.37, direct of 4, AST 84, ALT 51, alkaline phosphatase 936, total protein 7, albumin of 2.8. Serum test is negative. INR 1.07, PT of 14.8. Ultrasound the abdomen was ordered today which showed mild fatty liver and negative for biliary obstruction, CBD measuring 3.3 mm, spleen size 9.6 and 3.6 cm. IMPRESSION AND PLAN: 1. Displaced dialysis catheter which was replaced by Dr. Aolnso . 2. Elevated liver enzymes and direct hyperbilirubinemia and elevated alkaline phosphatase, this is consistent obstructive pattern, her ultrasound is negative. Will order MRI, MRCP tomorrow, will also order some chronic liver disease workup. 3. End-stage renal disease, hemodialysis managed nephrology team. 4. Chronic systolic heart failure ejection fraction of 35%. This is being managed by primary team. 5. Recent cholecystectomy per surgery team on 12/07/2018, surgery team on board. 6. Gastrointestinal with PPIs. 7. Bowel regimen with MiraLAX. Patient complains of constipation so will increase MiraLAX to twice daily. 8. Will follow along. The above plans discussed the patient and family at bedside and all questions answered, please call us with any further questions. cc: Jersey Hannah MD [facility]
[2018-12-27] MEDS ORDERED: D50W SYRINGE IV ONE ×2 (22:21→22:23)
[2018-12-27] MEDS: MIRALAX PO SCH (23:20)
[2018-12-28] MEDS: APRESOLINE PO SCH ×3 (04:19→22:09)
[2018-12-28] MEDS: HUMALOG SUBQ SCH ×7 (07:47→21:26)
--- NOTE | 2018-12-28 09:15 | PROGRESS NOTE ---
DATE: 12/28/2018 SUBJECTIVE: Patient is resting at the bedside. She is still complaining of some abdominal discomfort around the periumbilical area. Apparently, she had a hard bowel movement yesterday. I offered a suppository today but she refused that. Her liver enzymes are elevated. Gastroenterology department evaluated this patient and she will have an MRCP done hopefully today. We will continue to monitor and we will follow recommendations. OBJECTIVE: Vital Signs: Temperature 97.8 degrees, pulse 80, respiratory rate 18, blood pressure 139/91, oxygen saturation 100% on room air. HEENT: Head normocephalic. No trauma. PERRLA. Neck: Supple. No JVD. No masses. Central trachea. Chest: Clear to auscultation. No wheezing. No rales. She does have a new dialysis catheter at the level of the left upper thoracic area. Abdomen: Soft. Tenderness to palpation at the level of the periumbilical area. No signs of peritoneal irritation. Slightly distended. Positive bowel sounds. Extremities: There is 1+ lower extremity edema. No clubbing. No cyanosis. Neurological Examination: This patient is alert and oriented x3. No focal deficits. Laboratory: Pending lab work at this moment. ASSESSMENT AND PLAN: 1. Displaced hemodialysis catheter. Surgery department already replaced it and it looks like it is working fine. She did receive dialysis already. 2. Type 2 diabetes, aware. Continue with the same management for now. Blood sugar seems to be stable. Continue with the same management. 3. Chronic systolic congestive heart failure. It looks like a recent echocardiogram showed an ejection fraction of 35%. I do not think she has a lot of fluid, minimal volume overload. She had dialysis already. She is not complaining of shortness of breath or chest pain. 4. Recent cholecystitis, status post cholecystectomy. Her liver function tests are still elevated. She is complaining of some abdominal discomfort at the level of the periumbilical area. This looks like an obstructive pattern. She will have a magnetic resonance cholangiopancreatography done today. Gastroenterology department on board. 5. Elevated liver function tests, as above. 6. Hypertension. Continue with home medications. Stable. cc: Rasta Lindquist MD
--- NOTE | 2018-12-28 10:32 | GASTROENTEROLOGY PROGRESS NOTE ---
DATE: 12/28/2018 SUBJECTIVE: The patient is resting in a chair. She complains of constipation. She has not moved her bowels today. Her last bowel movement was yesterday, which was small. She denies any blood in the stools. She is awaiting MRI and MRCP today. PHYSICAL EXAMINATION: Vital Signs: Temperature 97.8 degrees, pulse rate of 80, respiratory rate 18, blood pressure 113/91, saturating 100% on room air. Body weight of 185 pounds. BMI 29 kg/m2. General Appearance: Moderately built, moderately nourished, sitting in a chair, in no acute distress. HEENT: No pallor. Icteric sclerae. Neck: Supple. Abdomen: Protuberant, soft. No guarding, rebound. Extremities: No cyanosis, clubbing. Neurological: Alert, awake, and oriented x3. LABS: Blood glucose 176 today. IMPRESSION AND PLAN: 1. Displaced hemodialysis catheter. Surgery department replaced it and it is working fine. She is on dialysis per Dr. Hannah. 2. End-stage renal disease, on hemodialysis. This is being followed by Dr. Hannah. 3. Type 2 diabetes. She is on sliding scale per the primary care team. 4. Chronic systolic congestive heart failure. Ejection fraction of 35%. This is being followed per the primary care team. 5. Recent cholecystitis, status post cholecystectomy, followed by elevated liver enzymes with the liver enzymes persistently being elevated and she has direct hyperbilirubinemia. Her ultrasound of the abdomen was negative. We will follow up on the chronic liver disease workup. We will also await the results of the magnetic resonance cholangiopancreatography. Following that, we will decide if the patient needs endoscopic retrograde cholangiopancreatography or not. 6. Gastrointestinal prophylaxis with Pepcid once daily. 7. Constipation. We will start her on MiraLAX twice daily and evaluate the response. We will give her Dulcolax once at bedtime as well. 8. The above plan of care was discussed with the patient and all questions were answered. Please call us with any further questions. cc: MD Jersey Chen MD
--- NOTE | 2018-12-28 11:06 | Diag Imaging Result Doc PS360 ---
EXAM: MRI MRCP (ABD W/O CONTRAST) 12/28/2018 HISTORY: Obstructive Jaundice TECHNIQUE: Axial T2, in and out of phase T1, coronal T2, water 3-D, MRCP and radial T2, in and out of phase coronal 3-D. COMMENT: There is a right pleural effusion. The pancreatic duct is normal in caliber. There is tapering of the distal common bile duct similar in appearance to the recent operative cholangiogram of 12/07/2018. The maximum dimension of the common bile duct is less than 8 mm. No definite filling defects are present. There are no definite abnormalities in the liver or pancreas. IMPRESSION: No evidence of biliary obstruction. Electronically signed by Madi Yu 12/28/2018 11:03 AM
[2018-12-28] MEDS: LANTUS INSULIN SUBQ SCH (11:16)
[2018-12-28] MEDS: NORVASC PO SCH (11:19)
[2018-12-28] MEDS: TOPROL XL PO SCH (11:19)
[2018-12-28] MEDS: MIRALAX PO SCH ×2 (11:19→22:09)
[2018-12-28] MEDS: PEPCID PO SCH (11:19)
[2018-12-28] MEDS: LASIX PO SCH (11:19)
[2018-12-28 13:09] LABS: POTASSIUM 5.2 mmol/L (3.5-5.1)
[2018-12-28 13:10] LABS: ALB/GLOB RATIO 0.7; CALCIUM 8.9 mg/dL (8.8-10.2); CREATININE 4.5 mg/dL (0.5-0.9); DIRECT BILIRUBIN 3.3 mg/dL (0.00-0.20); PHOSPHORUS 5.2 mg/dL (2.7-4.5); TOTAL BILIRUBIN 4.69 mg/dL (0.20-1.00); TOTAL PROTEIN 7.6 g/dL (6.3-8.3)
[2018-12-28] MEDS: NORCO-7.5 PO PRN ×2 (13:30→22:09)
[2018-12-28 14:13] LABS: HEMATOCRIT 35.8 % (37.0-47.0); MCH 27.6 PG (27-31); MCHC 33.5 g/dL (33-37); MCV 82.3 FL (81-99); RBC 4.35 XMIL (4.2-5.4); RDW 21.9 % (11.5-14.5); WBC 12.19 X1000 (4.8-10.8)
--- NOTE | 2018-12-28 18:54 | NEPHROLOGY PROGRESS NOTE ---
DATE: 12/28/2018 SUBJECTIVE: The patient is currently resting in bed. No complaints today. No issues with her dialysis on Friday. OBJECTIVE: Vital Signs: Temperature 97.8 degrees, pulse 80, respiratory rate 18, blood pressure 139/91. Intake 792 mL. Output not measured. PHYSICAL EXAMINATION: General: Middle-aged female, resting in bed. She is awake and alert. She is in no acute distress. HEENT: Normocephalic, atraumatic. Conjunctivae pink. Oral mucosa moist. Neck: Supple. There is no JVD. Cardiovascular: Regular rate and rhythm. No murmur or gallop. Pulmonary: She is clear bilaterally. No rales or rhonchi. Abdomen: Soft, with positive bowel sounds. Genitourinary: Not inspected. Extremities: No clubbing, cyanosis, or edema. Integumentary: Skin is warm and dry. Her tunnel dialysis catheter site, the upper left chest wall does have some bloody drainage. LABORATORY DATA: WBC of 13.8, hemoglobin 12.4, sodium 135, potassium 4.7, CO2 24, creatinine 3.5. ASSESSMENT AND PLAN: Chronic kidney disease 5D. We will dialyze her on Friday, , Friday, as per her routine. No dialysis today. Plan to dialyze tomorrow. We will request the nurses to change her dressing on her dialysis catheter today. Electrolytes/acid-base/Anemia in target. Dictated by ALEXIS Rushing for Jersey Hannah MD Face to face encounter, data reviewed, discussed with Christian Araujo on 12/28/18. I agree with the above assessment and plan of care. cc: Jersey Hannah MD [facility]
[2018-12-28] MEDS: NEURONTIN PO SCH (22:08)
[2018-12-28] MEDS: PRAVACHOL PO SCH (22:09)
[2018-12-28] MEDS: DULCOLAX PR SCH (22:11)
[2018-12-29] MEDS: NORCO-7.5 PO PRN ×3 (03:29→21:25)
[2018-12-29] MEDS ORDERED: TIGHT: 0.2 ML/HR FOR DIALYSIS MISC PRN (06:21)
[2018-12-29] MEDS ORDERED: HEPARIN IV PRN (06:21)
[2018-12-29] MEDS ORDERED: NS 2,000 ML MISC PRN (06:21)
[2018-12-29] MEDS: APRESOLINE PO SCH ×3 (07:01→20:50)
[2018-12-29] MEDS: HUMALOG SUBQ SCH ×7 (07:02→21:10)
--- NOTE | 2018-12-29 09:57 | NEPHROLOGY PROGRESS NOTE ---
DATE: 12/29/2018 SUBJECTIVE: Patient resting in bed. She is complaining of pain upon inspiration with specific tenderness to the left lateral back. OBJECTIVE: Vital signs: Temperature 98, pulse 65, respiratory rate 16, blood pressure 99/46. General: This is a middle-aged female, sitting up in bed. She is awake and alert. She does not appear in distress. HEENT: Normocephalic, atraumatic. NIC. Neck: Supple. No JVD. Cardiovascular: Regular rate and rhythm. Pulmonary: She has some decreased breath sounds. No wheezes or rales. Abdomen: Soft, with positive bowel sounds. : Not inspected. Extremities: No clubbing, cyanosis, or edema. She has 1 to 2+ pretibial edema. Integumentary her. Integumentary: Skin is warm and dry. She has a tunneled dialysis catheter site in the upper left chest wall with a clean dressing. No drainage or bleeding. INPUT AND OUTPUT: Intake 860 mL. Output was not measured. LABORATORY DATA: Pending. ASSESSMENT AND PLAN: 1. Chronic kidney disease 5D. Today is her routine dialysis day. Her potassium yesterday was 5.2, we will dialyze her on a 2K bath, UF to dry weight 3.5 hour treatment. 2. Gastroparesis, followed by Primary and Gastroenterology. 3. Pain with inspiration. Her abdominal MRI without contrast that she had yesterday indicated a right pleural effusion. This was likely the source of her chest and back pain. We will plan to be aggressive with her dialysis UF today. We discussed with the patient that we may further dialyze her if she remains in the hospital tomorrow, depending on imaging. Dictated by ALEXIS Rushing for Jersey Hannah MD Face to face encounter, data reviewed, discussed with Christian Araujo on 12/29/18. I agree with the above assessment and plan of care. cc: MD CHERYLE Durham
[2018-12-29] MEDS: PEPCID PO SCH (12:44)
[2018-12-29] MEDS: NORVASC PO SCH (12:44)
[2018-12-29] MEDS: TOPROL XL PO SCH (12:44)
[2018-12-29] MEDS: LASIX PO SCH (12:45)
[2018-12-29] MEDS: MIRALAX PO SCH ×2 (12:45→20:51)
[2018-12-29] MEDS: LANTUS INSULIN SUBQ SCH (12:46)
--- NOTE | 2018-12-29 15:40 | PROGRESS NOTE ---
DATE: 12/29/2018 INTERVAL HISTORY: The patient is seen on dialysis. Complaining of some mild right-sided right lower pleuritic pain and stable leg swelling. No other new complaints. No acute events overnight. REVIEW OF SYSTEMS: Twelve point review of systems negative except as per interval history. LABS: Glucose 122. Other labs pending. IMAGING: MRCP with a right pleural effusion, but no evidence of biliary obstruction. No definite filling defects. No definite abnormalities in liver or pancreas. VITALS: T-max 98.7, pulse 83, respirations 16, blood pressure 129/100, O2 sat 96% on room air. PHYSICAL EXAMINATION: General: No acute distress. Vitals: As above. HEENT: Normocephalic, atraumatic. Moist mucous membranes. No cervical adenopathy. Dialysis catheter in the left upper chest. Cardiovascular: Regular rate and rhythm. No murmurs noted. Pulmonary: Slightly decreased at right base, but largely clear to auscultation bilaterally. Abdomen: Soft, nontender, nondistended. Bowel sounds positive. Extremities: Peripheral pulses decreased but intact. 1+ lower extremity edema, bilaterally stable. No clubbing or cyanosis. Neurologic: Cranial nerves grossly intact. No focal deficits. Psychiatric: Normal mood and affect. Awake, alert, oriented x 3. Skin: No new rashes or lesions identified. ASSESSMENT AND PLAN: 1. End-stage renal disease with displaced HD catheter, has been replaced and patient receiving dialysis today. 2. Elevated LFTs and bilirubin. Patient with a recent cholecystectomy. MRCP was obtained to look for recurrent obstruction, but showed no obvious pathology. Awaiting further gastroenterology recommendations, but this may be chronic liver disease related to known fatty liver and hepatic congestion from CHF and end-stage renal disease. 3. Diabetes mellitus. Reasonable sugars on current regimen. Continue to monitor. Did have one elevated glucose, but pretty stable overall. 4. Chronic systolic congestive heart failure. Last known EF 35%. Does have slight right pleural effusion, but respiratory status pretty stable. He is getting HD today which may get enough fluid off her. Continue to monitor. 5. Hypertension, currently stable. Continue home medications. 6. Disposition: Awaiting further gastroenterology recommendations regarding LFTs. If workup there is unremarkable, then may be able to be discharged home in the next day or two.
[2018-12-29] MEDS: PRAVACHOL PO SCH (20:49)
[2018-12-29] MEDS: NEURONTIN PO SCH (20:50)
[2018-12-29] MEDS: DULCOLAX PR SCH (21:11)
--- NOTE | 2018-12-29 23:26 | PROVIDER PROGRESS NOTE ---
Progress Note SUBJECTIVE: No acute overnight events. Patient underwent dialysis today. No N/V/F, CP, SOB, abdominal pain. She reports constipation. OBJECTIVE: Last Vital Signs Temp 98.6 F 12/29/18 19:31 Pulse 80 12/29/18 19:31 Resp 19 12/29/18 19:31 BP 140/110 12/29/18 19:31 Pulse Ox 100 12/29/18 19:31 Height 5 ft 7 in Weight 185 lb GEN: chronically ill appearing, NAD HEENT: scleral icterus, MMM NECK: supple, no JVD PULM: CTAB, no wheezing CV: RRR, no mrg ABD: soft, NT/ND, NABS EXT: no cce NEURO: nonfocal LABS: 12/28/18 12/28/18 12:05 12:05 WBC 12.19 H Hgb 12.0 Plt Count 376 Sodium 132 L Potassium 5.2 H Chloride 91 L Carbon Dioxide 25 Anion Gap 16 BUN 34 H D Creatinine 4.5 H Glucose 230 H Total Bilirubin 4.69 H Direct Bilirubin 3.30 H AST 81 H ALT 47 H Alkaline Phosphatase 914 H Total Protein 7.6 Albumin 3.0 L Meds prior to admission on 12/06 Home Medication List Medication Instructions Recorded Confirmed Last Taken Type PRAVAstatin [Pravachol] 80 mg PO QHS 12/02/15 12/06/18 12/01/15 21:00 History Hydroxyzine [Atarax] 10 mg PO TID PRN #20 tab 10/01/18 12/06/18 Unknown Rx Amlodipine [Norvasc] 5 mg PO DAILY 12/06/18 12/06/18 Unknown History Clonidine [Catapres-Tts 2] 1 patch TD Q7D 12/06/18 12/06/18 Unknown History Clopidogrel [Plavix] 75 mg PO DAILY 12/06/18 12/06/18 Unknown History Docusate Sodium [Colace] 100 mg PO DAILY PRN 12/06/18 12/06/18 Unknown History Furosemide 20 mg PO DAILY 12/06/18 12/06/18 Unknown History Gabapentin 1 cap PO QHS 12/06/18 12/06/18 Unknown History Hydralazine [Apresoline] 25 mg PO Q8H 12/06/18 12/06/18 Unknown History Insulin Aspart [Novolog Flexpen] 20 units SUBQ AC 12/06/18 12/06/18 Unknown History Metoprolol Succinate E.r. [Toprol 100 mg PO DAILY 12/06/18 12/06/18 Unknown History Xl] Ondansetron HCl [Zofran] 1 tab PO DIRECTED 12/06/18 12/06/18 Unknown History A/P: Ms. Gayle Viera is a 43 year old woman with ESRD on HD with recently laparascopic cholecystectomy for acute cholecystitis who was readmitted for displaced dialysis catheter found to have leukocytosis and worsening cholestatic LFT pattern. IOC on 12/07 was negative CBD stones. MRCP also negative for PSC, stones, and strictures. Chronic liver disease workup is negative. I am concerned for either drug-induced liver injury (DILI) from recent initiation of gabapentin versus cholestasis of sepsis. #Abnormal LFTs; NPO after MN for US-guided liver biopsy tomorrow; trending LFTs daily #Anemia: stable #Leukocytosis: on abx per primary #IDDM2: on lantus; on SSI #ESRD on HD per renal Will follow with you. Please call with questions.
[2018-12-30] MEDS: APRESOLINE PO SCH ×4 (06:15→22:00)
--- NOTE | 2018-12-30 07:37 | Diag Imaging Result Doc PS360 ---
EXAM: CHEST-PORTABLE INDICATION: pleural effusion. Pleurisy TECHNIQUE: One view COMPARISON: 12/26/2018 FINDINGS: The patient is significantly rotated toward the left. There is suggestion of a small right pleural effusion and a possible effusion on the left. No new consolidation is identified, otherwise. There has been interval placement of a dialysis catheter on the left. The tip is probably within the right atrium. There is no evidence of pneumothorax. The cardiac silhouette is prominent but stable. IMPRESSION: Development of a small right pleural effusion and a possible left effusion and interval placement of a dialysis catheter on the left. Electronically signed by Jony Luo 12/30/2018 7:35 AM
[2018-12-30] MEDS: HUMALOG SUBQ SCH ×7 (08:07→22:02)
[2018-12-30] MEDS: NORVASC PO SCH (11:45)
[2018-12-30] MEDS: PEPCID PO SCH (11:46)
[2018-12-30] MEDS: LASIX PO SCH (11:46)
[2018-12-30] MEDS: TOPROL XL PO SCH (11:46)
[2018-12-30] MEDS: NORCO-7.5 PO PRN ×2 (11:51→22:00)
[2018-12-30] MEDS: MIRALAX PO SCH ×2 (11:53→22:01)
[2018-12-30] MEDS: LANTUS INSULIN SUBQ SCH (11:53)
--- NOTE | 2018-12-30 14:15 | PROGRESS NOTE ---
DATE: 12/30/2018 INTERVAL HISTORY: Patient still with right lower lateral chest wall/right upper quadrant pleuritic pain, some mild dyspnea when lying flat. Otherwise, no acute events overnight. No new complaints. Lower extremity edema slightly improved. REVIEW OF SYSTEMS: Twelve point review of systems negative except as per interval history. LABS: Glucose 122 to 311. Labs otherwise pending. IMAGING: Chest x-ray: Small right pleural effusion, possible left effusion. VITAL SIGNS: T-max 99.1 degrees, pulse 82, respirations 18, blood pressure 148/87, O2 saturation 100% on room air. PHYSICAL EXAMINATION: General: No acute distress. Vital signs: As above. HEENT: Normocephalic, atraumatic. Moist mucous membranes. No cervical adenopathy. Dialysis catheter in left upper chest noted. Cardiovascular: Regular rate and rhythm. No murmurs noted. Pulmonary: Remains slightly decreased at bases, right greater than left, but largely clear to auscultation bilaterally. Abdomen: Soft, nontender, and nondistended. Bowel sounds positive. Extremities: Peripheral pulses decreased but intact. There is 1+ lower extremity edema, slightly improved. No clubbing or cyanosis. Neurologic: Cranial nerves grossly intact. No focal deficits. Psychiatric: Normal mood and affect. Awake, alert, oriented x3. Skin: Numerous healing excoriations but no new rashes or lesions noted. ASSESSMENT AND PLAN: 1. End-stage renal disease with displaced HD catheter. The catheter has been replaced and the patient received dialysis yesterday. 2. Elevated liver function tests and bilirubin. Patient with recent cholecystectomy. MRCP was obtained to look for recurrent obstruction but showed no obvious pathology. Lab workup has been unremarkable. Gastroenterology on board and planning for liver biopsy today. They have some concerns that this may be gabapentin related cholestasis so we are holding that. 3. Diabetes mellitus. Occasional elevations but overall reasonable control. We will continue Lantus but increase meal time insulin slightly to deal with mealtime highs. 4. Chronic systolic congestive heart failure. Last know EF of 35%. Mild effusion primarily on the right but respiratory status quite stable. May improve further with continued dialysis. Monitor. 5. Hypertension, currently stable. Continue home medications. 6. Disposition. Awaiting further workup regarding patient's liver issues. Depending on results, we will make further plans. [facility]
--- NOTE | 2018-12-30 17:46 | NEPHROLOGY PROGRESS NOTE ---
DATE: 12/30/2018 SUBJECTIVE: She is anticipating a liver biopsy today. Knee pain is unchanged. No shortness of breath. OBJECTIVE: Vital Signs: Blood pressure 148/87, heart rate 82, respirations 18, afebrile. General: No acute distress. Skin: Warm and dry. Neck: Neck veins are not distended. Heart: Regular. No gallops. Lungs: Equal. No crackles. Abdomen: Soft, nontender. Bowel sounds are present. Extremities: Have minimal edema. No clubbing or cyanosis. IMPRESSION: 1. Chronic kidney disease 5D. 2. Dialysis treatment tomorrow. 3. Labs will be repeated in the morning. Volume status acceptable. cc: Jersey Hannah MD
[2018-12-30 21:48] LABS: PTT 32.7 Seconds (22.3-41.8)
[2018-12-30 21:51] LABS: INR 1.13; PROTIME 15.4 Seconds (11.0-16.0)
[2018-12-30] MEDS: PRAVACHOL PO SCH (22:00)
[2018-12-30] MEDS: DULCOLAX PR SCH (22:33)
--- NOTE | 2018-12-30 23:53 | PROVIDER PROGRESS NOTE ---
Progress Note SUBJECTIVE: No acute overnight events. Patient denies complaints. OBJECTIVE: Last Vital Signs Temp 98 F 12/30/18 21:09 Pulse 84 12/30/18 21:09 Resp 20 12/30/18 21:09 BP 116/84 12/30/18 21:09 Pulse Ox 97 12/30/18 21:09 Height 5 ft 7 in Weight 185 lb GEN: chronically ill appearing, NAD HEENT: scleral icterus, MMM NECK: supple, no JVD PULM: CTAB, no wheezing CV: RRR, no mrg ABD: soft, NT/ND, NABS EXT: no cce NEURO: nonfocal LABS: INR WNL A/P: Ms. Gayle Viera is a 43 year old woman with ESRD on HD with recently laparascopic cholecystectomy for acute cholecystitis who was readmitted for displaced dialysis catheter found to have leukocytosis and worsening cholestatic LFT pattern. IOC on 12/07 was negative CBD stones. MRCP also negative for PSC, stones, and strictures. Chronic liver disease workup is negative. I am concerned for either drug-induced liver injury (DILI) from recent initiation of gabapentin versus cholestasis of sepsis. Radiology unable to perform liver biopsy today; will reschedule for tomorrow. #Abnormal LFTs; NPO after MN for US-guided liver biopsy tomorrow; trending LFTs daily #Anemia: stable #Leukocytosis: on abx per primary #IDDM2: on lantus; on SSI #ESRD on HD per renal Will follow with you. Please call with questions
[2018-12-31] MEDS ORDERED: HEPARIN IV PRN (06:10)
[2018-12-31] MEDS ORDERED: NS 2,000 ML MISC PRN (06:10)
[2018-12-31] MEDS ORDERED: TIGHT: 0.2 ML/HR FOR DIALYSIS MISC PRN (06:10)
[2018-12-31] MEDS: APRESOLINE PO SCH ×3 (06:56→23:06)
[2018-12-31] MEDS: HUMALOG SUBQ SCH ×7 (07:51→23:09)
--- NOTE | 2018-12-31 09:12 | Diag Imaging Result Doc PS360 ---
EXAM: US LIVER BIOPSY W S/I 12/31/2018 HISTORY: abnormal LFTs TECHNIQUE: Ultrasound-guided liver biopsy COMMENT: The risks and benefits of the procedure including the possibility of bleeding, infection, or reaction to lidocaine were discussed with the patient and she agreed to the procedure. Following sterile preparation the skin and administration of 1% lidocaine to the skin and deeper soft tissues, the liver was biopsied with an 18-gauge coaxial core biopsy needle 4 times. There are no immediate complications. IMPRESSION: Successful ultrasound-guided liver biopsy. Electronically signed by Madi Yu 12/31/2018 9:10 AM
[2018-12-31] MEDS: NORCO-7.5 PO PRN ×2 (11:27→23:06)
[2018-12-31 13:00] LABS: BASO# 0.03 X1000 (0.0-0.2); BASO% 0.2 % (0.0-0.8); EOS# 0.06 X1000 (0.0-0.7); EOS% 0.4 % (0.0-10.0); HEMATOCRIT 31.9 % (37.0-47.0); HEMOGLOBIN 10.9 g/dL (12.0-16.0); IMM GRAN# 0.11 X1000 (0.0-0.04); IMM GRAN% 0.7 % (0.0-0.5); LYMPH# 1.64 X1000 (1.2-3.4); LYMPH% 9.7 % (20.5-51.1); MCHC 34.2 g/dL (33-37); MONO# 0.86 X1000 (0.11-0.59); MONO% 5.1 % (1.7-9.3); MPV 9.8 FL (7.4-10.4); NEUT# 14.14 X1000 (1.4-6.5); NEUT% 83.9 % (42.2-75.2); PLT 460 X1000 (130-400); RBC 4.04 XMIL (4.2-5.4); RDW 20.6 % (11.5-14.5); WBC 16.84 X1000 (4.8-10.8)
--- NOTE | 2018-12-31 13:11 | NEPHROLOGY PROGRESS NOTE ---
DATE: 12/31/2018 SUBJECTIVE: She is asleep. Has no new complaints today. Her biopsy was delayed until today. OBJECTIVE: Vital Signs: Blood pressure 139/88, heart rate 67, respiration 18, afebrile. Generally: No acute distress. Skin: Warm and dry. Conjunctivae are pink. Neck: Neck veins are not distended. Heart: Regular. Lungs: Equal. Abdomen: Soft, nontender. Extremities: Have no edema, clubbing, or cyanosis. IMPRESSION: 1. Chronic kidney disease 5D. She will have her routine hemodialysis treatment today. No heparin. 2. Acute liver injury. Labs are pending. Biopsy pending. 3. Electrolytes/acid base. Moderate hyponatremia and hyperkalemia that will be addressed with dialysis. cc: Jersey Hannah MD
[2018-12-31 13:39] LABS: ALB/GLOB RATIO 0.6; ALBUMIN 2.5 g/dL (3.5-5.0); CALCIUM 8.7 mg/dL (8.8-10.2); CREATININE 4.2 mg/dL (0.5-0.9); POTASSIUM 4.3 mmol/L (3.5-5.1); TOTAL BILIRUBIN 4.87 mg/dL (0.20-1.00); TOTAL PROTEIN 6.7 g/dL (6.3-8.3)
[2018-12-31 13:40] LABS: EOS 1 % (1-10); LYMPHS 12 % (21-51); MONO 4 % (1-9); SEGS 83 % (42-75)
--- NOTE | 2018-12-31 14:37 | GASTROENTEROLOGY PROGRESS NOTE ---
DATE: 12/31/2018 SUBJECTIVE: The patient is resting in bed. The patient had a liver biopsy this morning. The patient wants to eat. We will start her diet in about 2 hours after liver biopsy. She has not moved her bowels. She feels constipated. PHYSICAL EXAMINATION: Vital Signs: Temperature of 97.3 degrees, pulse rate of 67, respiratory rate of 18, blood pressure 113/88, saturating 100% on nasal cannula. Body weight of 185 pounds. BMI 29 kg/m2. General Appearance: Moderately built, moderately nourished. Lying in bed, in no acute distress. HEENT: No pallor. Positive icterus. Neck: Supple. Abdomen: Discomfort in the right upper quadrant from recent liver biopsy. No guarding. Extremities: No cyanosis or clubbing. Neurologic: Alert, awake, oriented x3. LABS: Her INR is 1.13, PT of 15.4, PTT of 32.7. Blood glucose of 244. Her alpha 1 antitrypsin level is 264. Ceruloplasmin level 41.5. DEBBY is positive. DSTN is 53. Antimitochondrial antibody less than 0.1, anti-smooth muscle antibody is negative. Liver biopsy was done today. IMPRESSION AND PLAN: 1. Elevated liver enzymes. Unclear etiology. We will follow up the liver biopsy. Her chronic liver disease workup is showing positive DEBBY but anti-smooth muscle antibody is negative. Continue to avoid hepatotoxic drugs. 2. End-stage renal disease, on hemodialysis. 3. Leukocytosis. She is on antibiotics per primary care team. 4. Insulin-dependent diabetes. She is on Lantus and sliding scale insulin. 5. Anemia. Continue to watch for now. 6. Constipation. Her last bowel was on 12/27/2018. She is already on MiraLAX twice daily and Dulcolax once daily. We will start her on lactulose to help with the bowels. 7. Gastrointestinal prophylaxis with Pepcid 20 mg daily. 8. The above plans was discussed with the patient and all questions were answered. Please call us with any further questions. cc: MD Jersey Chen MD
--- NOTE | 2018-12-31 14:59 | PROGRESS NOTE ---
DATE: 12/31/2018 INTERVAL HISTORY: The patient with continued right upper quadrant pleuritic pain. No other new complaints. No acute events overnight. REVIEW OF SYSTEMS: Twelve point review negative except as per interval history. LABORATORY DATA: WBC 16.8, hemoglobin 10.9, hematocrit 31.9, platelets 460,000. Neutrophil percent 83.9. Sodium 130, potassium 4.3, bicarbonate 24, BUN 39, creatinine 4.2, glucose 162, 277. Total bilirubin 4.87, AST 45, ALT 33, alkaline phosphatase 880, albumin 2.5. VITAL SIGNS: T-max 98.6 degrees, pulse 67, respirations 18, blood pressure 129/88, O2 saturation 100% on room air. PHYSICAL EXAMINATION: General: No acute distress. Vital signs: As above. HEENT: Normocephalic, atraumatic. Moist mucous membranes. No cervical adenopathy. A dialysis catheter is stable in the left upper chest. Cardiovascular: Regular rate and rhythm. No murmurs noted. Pulmonary: Largely clear to auscultation bilaterally. Abdomen: Soft, slight right upper quadrant tenderness without rebound or guarding. Otherwise nontender, nondistended. Bowel sounds positive. Extremities: Peripheral pulses decreased but intact. Trace to 1+ lower extremity edema, largely stable. No clubbing or cyanosis. Neurologic: Cranial nerves grossly intact. No focal deficits identified. Psychiatric: Normal mood and affect. Awake, alert, oriented x3. Skin: Healing excoriations unchanged. No new rashes or lesions. ASSESSMENT AND PLAN: 1. End-stage renal disease with displaced hemodialysis catheter. Catheter had been replaced. Patient receiving her regular Friday, , Friday dialysis. 2. Transaminitis. Patient with elevated LFTs and bilirubin and alkaline phosphatase. Had recent cholecystectomy but MRCP was unremarkable. Lab workup has also been remarkable. GI on board and arranged for liver biopsy performed this morning. Repeat labs obtained with dialysis today showed bilirubin essentially stable, some slight improvement in AST, ALT and alkaline phosphatase. Holding gabapentin as there was some concern that it might be involved. Awaiting results of biopsy and further LFT results. 3. Diabetes mellitus, control not ideal. The morning sugar is pretty good, so not really much room to increase basal. On review of the record, it appears that she has not really been getting her scheduled mealtime insulin. This was reordered at a lower dose with instructions to give in addition to the sliding scale insulin. We will monitor and adjust as needed. 4. Chronic systolic congestive heart failure. Last known EF 35%. Respiratory status stable. Continue to monitor. 5. Hypertension, stable. Continue home medications.
[2018-12-31] MEDS: NORVASC PO SCH (16:43)
[2018-12-31] MEDS: PEPCID PO SCH (16:43)
[2018-12-31] MEDS: LACTULOSE PO SCH ×2 (16:43→23:07)
[2018-12-31] MEDS: TOPROL XL PO SCH (16:43)
[2018-12-31] MEDS: LANTUS INSULIN SUBQ SCH (18:28)
[2018-12-31] MEDS: MIRALAX PO SCH ×2 (18:31→23:07)
[2018-12-31] MEDS: LASIX PO SCH (18:31)
[2018-12-31] MEDS: PRAVACHOL PO SCH (23:06)
[2018-12-31] MEDS: DULCOLAX PR SCH (23:07)
[2019-01-01] MEDS: LACTULOSE PO SCH ×3 (06:44→22:15)
[2019-01-01] MEDS: NORCO-7.5 PO PRN ×2 (07:02→22:16)
[2019-01-01] MEDS: HUMALOG SUBQ SCH ×7 (07:06→22:15)
[2019-01-01 08:18] LABS: ALB/GLOB RATIO 0.5; ALBUMIN 2.4 g/dL (3.5-5.0); CALCIUM 8.7 mg/dL (8.8-10.2); CREATININE 3.5 mg/dL (0.5-0.9); POTASSIUM 4.3 mmol/L (3.5-5.1); TOTAL BILIRUBIN 5.15 mg/dL (0.20-1.00); TOTAL PROTEIN 6.9 g/dL (6.3-8.3)
[2019-01-01 08:27] LABS: BASO# 0.04 X1000 (0.0-0.2); BASO% 0.2 % (0.0-0.8); EOS% 0.6 % (0.0-10.0); HEMATOCRIT 32.5 % (37.0-47.0); IMM GRAN# 0.16 X1000 (0.0-0.04); IMM GRAN% 0.9 % (0.0-0.5); LYMPH# 2.36 X1000 (1.2-3.4); LYMPH% 13.5 % (20.5-51.1); MCH 26.8 PG (27-31); MCHC 33.8 g/dL (33-37); MCV 79.1 FL (81-99); MONO# 1.96 X1000 (0.11-0.59); MONO% 11.2 % (1.7-9.3); MPV 9.7 FL (7.4-10.4); NEUT# 12.84 X1000 (1.4-6.5); NEUT% 73.6 % (42.2-75.2); PLT 469 X1000 (130-400); RBC 4.11 XMIL (4.2-5.4); RDW 20.5 % (11.5-14.5); WBC 17.46 X1000 (4.8-10.8)
[2019-01-01 08:41] LABS: LYMPHS 13 % (21-51); MONO 7 % (1-9); SEGS 80 % (42-75)
[2019-01-01] MEDS ORDERED: BENADRYL PO PRN (10:45)
--- NOTE | 2019-01-01 11:12 | PROVIDER PROGRESS NOTE ---
Progress Note SUBJECTIVE: No acute overnight events. Afebrile. Patient reports some RUQ discomfort and generalized itching. No N/V/F, CP, SOB, rectal bleeding, confusion. OBJECTIVE: Last Vital Signs Temp 98.2 F 01/01/19 07:37 Pulse 71 01/01/19 07:37 Resp 16 01/01/19 07:37 BP 135/80 01/01/19 07:37 Pulse Ox 95 01/01/19 07:37 Height 5 ft 7 in Weight 185 lb GEN: chronically ill appearing, NAD HEENT: scleral icterus, MMM NECK: supple, no JVD PULM: CTAB, no wheezing CV: RRR, no mrg ABD: soft, NT/ND, NABS, liver biopsy site c/d/i, no induration or tenderness EXT: no cce NEURO: nonfocal LABS: 01/01/19 01/01/19 07:03 07:03 WBC 17.46 H Hgb 11.0 L Plt Count 469 H Sodium 128 L Potassium 4.3 Chloride 91 L Carbon Dioxide 24 L BUN 29 H Creatinine 3.5 H Glucose 303 H Calculated Osmolality 274 Calcium 8.7 L Total Bilirubin 5.15 H AST 41 H ALT 31 Alkaline Phosphatase 884 H Total Protein 6.9 Albumin 2.4 L A/P: Ms. Gayle Viera is a 43 year old woman with ESRD on HD who underwent laparascopic cholecystectomy for acute cholecystitis in 11/2018 who was readmitted for displaced dialysis catheter found to have leukocytosis and worsening cholestatic LFTs. IOC on 12/07 was negative CBD stones. MRCP also negative for PSC, stones, and strictures. Chronic liver disease workup is negative. I am concerned for either drug-induced liver injury (DILI) from recent initiation of gabapentin vs cholestasis of sepsis vs AMA-negative PBC. Uncomplicated liver biopsy performed yesterday; pathology pending #Abnormal LFTs: stable; avoiding hepatotoxic agents; awaiting liver biopsy results #Pruritus: started on atarax; continue benadryl #Anemia: stable #Leukocytosis: on abx per primary #IDDM2: on lantus; on SSI #ESRD on HD per renal Will follow with you
[2019-01-01] MEDS: PEPCID PO SCH (11:30)
[2019-01-01] MEDS: LASIX PO SCH (11:30)
[2019-01-01] MEDS: NORVASC PO SCH (11:31)
[2019-01-01] MEDS: TOPROL XL PO SCH (11:31)
[2019-01-01] MEDS: MIRALAX PO SCH ×2 (11:32→22:15)
[2019-01-01] MEDS: LANTUS INSULIN SUBQ SCH (11:32)
[2019-01-01] MEDS: APRESOLINE PO SCH ×2 (11:40→17:42)
--- NOTE | 2019-01-01 12:31 | NEPHROLOGY PROGRESS NOTE ---
DATE: 01/01/2019 SUBJECTIVE: She complains of itching at her exit site. Otherwise, no shortness of breath, nausea, vomiting. She underwent liver biopsy yesterday. OBJECTIVE: Vital Signs: Blood pressure 135/80, heart rate 71, respirations 16, afebrile. General: No acute distress. Skin: Warm and dry. HEENT: Conjunctivae are pink. Neck: Neck veins are not distended. Heart: Regular with S4. Lungs: Equal. No crackles or wheezes. Abdomen: Soft, nontender. Bowel sounds present. Extremities: Have 1+ edema. No clubbing or cyanosis. IMPRESSION: Chronic kidney disease 5D. PLAN: Next scheduled dialysis treatment tomorrow. If she is discharged, she can receive this treatment at the outpatient center. Electrolytes/acid base/volume status in target. cc: Jersey Hannah MD
--- NOTE | 2019-01-01 16:11 | Diag Imaging Result Doc PS360 ---
EXAM: CHEST-PORTABLE INDICATION: cough TECHNIQUE: One view COMPARISON: 12/30/2018 FINDINGS: There is a left-sided dialysis catheter are in stable position. Inspiration is suboptimal. The central vasculature is borderline prominent, which may be due to mild pulmonary venous congestion versus venous crowding from poor inspiration. No new consolidations are appreciated. Cardiac silhouette is stable. IMPRESSION: Poor inspiration and borderline prominent central vasculature as described. Electronically signed by Jony Luo 01/01/2019 4:09 PM
[2019-01-01 16:53] LABS: URINE SOURCE CLEAN CATCH
--- NOTE | 2019-01-01 17:11 | PROGRESS NOTE ---
DATE: 01/01/2019 INTERVAL HISTORY: Patient reporting some increased cough. Nonproductive. No fevers. No dyspnea. Also reports itching but no other new complaints. No acute events overnight. REVIEW OF SYSTEMS: Twelve point review of system negative except as per interval history. LABS: WBC 17.46, hemoglobin 11, hematocrit 32.5, platelets 469,000. Sodium 128, potassium 4.3, BUN 29, creatinine 3.5, glucose 105 to 318. VITALS: T-max 98.8 degrees, pulse 70, respirations 16, blood pressure 118/72, O2 saturation 97% on room air. PHYSICAL EXAM: General: No acute distress. Vitals: As above. HEENT: Normocephalic, atraumatic. Moist mucous membranes. No cervical adenopathy. Cardiovascular: Regular rate and rhythm, no murmurs noted. Pulmonary: Crackles noted of right lower lung, otherwise largely clear. Abdomen: Soft. Mild right upper quadrant tender stable without rebound or guarding. Bowel sounds positive. Extremities: Peripheral pulses decreased but intact. Trace lower extremity edema unchanged. Neurologic: Cranial nerves grossly intact. No focal deficits. Psychiatric: Normal mood and affect. Awake, alert, oriented x3. Skin: Multiple healing excoriations, but no new rashes or lesions noted. ASSESSMENT AND PLAN: 1. End stage renal disease with displaced hemodialysis catheter. Catheter has been replaced. Patient receiving regular dialysis. 2. Leukocytosis, concern for pneumonia. Patient with fairly mild symptoms, but does have increased cough, right lower lobe crackles on exam, significantly increased leukocytosis. Obtaining chest x-ray. Empiric antibiotics for the moment. If chest x-ray unremarkable, may consider CT scan. If that is unremarkable, then we will likely discontinue antibiotics. Monitor. 3. Transaminitis. Patient with elevated liver function tests, bilirubin, alkaline phosphatase. Recent cholecystectomy, but magnetic resonance cholangiopancreatography unremarkable, lab workup thus far unremarkable. Liver biopsy yesterday. Results pending. If infectious workup unremarkable for pneumonia or other pathology as above, then can likely be discharged tomorrow to follow up with gastroenterology as an outpatient. 4. Diabetes mellitus control not ideal but missed Lantus dose yesterday, so we will not make any changes right now. Monitor. 5. Chronic systolic congestive heart failure. Last known ejection fraction 35%. Respiratory status stable with the exception of cough and rales as above. Continue to monitor. 6. Hypertension, stable. Continue home medications.
[2019-01-01 17:12] LABS: BILIRUBIN URINE MODERATE (NEGATIVE); BLOOD URINE MODERATE (NEGATIVE); COLOR YELLOW; GLUCOSE URINE 300 mg/dL (NEGATIVE); KETONE URINE NEGATIVE (NEGATIVE); LEUKOCYTES URINE NEGATIVE (NEGATIVE); NITRITE URINE NEGATIVE (NEGATIVE); PH URINE 6.5; PROTEIN URINE >600 mg/dL (NEGATIVE); SP GRAVITY URINE 1.016; TURBIDITY URINE HAZY (CLEAR); UROBILINOGEN URINE 6 mg/dL (NORMAL)
[2019-01-01 17:13] LABS: UR EPITHELIAL CELLS <10 /HPF (<10); URINE BACTERIA NEGATIVE /HPF; URINE RBC <10 /HPF (<10)
[2019-01-01] MEDS: MAXIPIME 1 GM in NS 50 ML IV SCH (17:23)
[2019-01-01] MEDS ORDERED: LEVAQUIN PO ONE (17:23)
[2019-01-01 17:27] LABS: URINE CASTS NONE SEEN; URINE CRYSTALS NONE SEEN; URINE SMALL ROUND CELLS NONE SEEN; URINE YEAST PRESENT
[2019-01-01] MEDS: ATARAX PO SCH ×3 (17:42→21:51)
[2019-01-01] MEDS: DULCOLAX PR SCH (22:15)
[2019-01-02] MEDS: MAXIPIME 1 GM in NS 50 ML IV SCH (01:31)
[2019-01-02] MEDS: APRESOLINE PO SCH ×2 (01:33→17:14)
[2019-01-02] MEDS: HUMALOG SUBQ SCH ×4 (07:00→17:16)
--- NOTE | 2019-01-02 08:58 | Diag Imaging Result Doc PS360 ---
EXAM: CHEST-PORTABLE INDICATION: cough TECHNIQUE: One view COMPARISON: 01/01/2019 FINDINGS: The right Vas-Cath is in stable position. Similar to the previous study, the central vasculature is mildly prominent suggesting likely mild pulmonary venous congestion. The tiny right pleural effusion is stable. No new consolidation is identified. Cardiac silhouette is stable. IMPRESSION: Essentially stable chest. Electronically signed by Jony Luo 01/02/2019 8:56 AM
[2019-01-02] MEDS ORDERED: NS 2,000 ML MISC PRN (09:20)
[2019-01-02] MEDS ORDERED: HEPARIN IV PRN (09:20)
[2019-01-02 11:10] LABS: CALCIUM 8.8 mg/dL (8.8-10.2); CREATININE 4.8 mg/dL (0.5-0.9); POTASSIUM 4.5 mmol/L (3.5-5.1); TOTAL BILIRUBIN 4.69 mg/dL (0.20-1.00)
[2019-01-02 11:11] LABS: ALB/GLOB RATIO 0.5; ALBUMIN 2.3 g/dL (3.5-5.0); TOTAL PROTEIN 6.5 g/dL (6.3-8.3)
[2019-01-02 11:14] LABS: BASO# 0.03 X1000 (0.0-0.2); BASO% 0.2 % (0.0-0.8); EOS# 0.09 X1000 (0.0-0.7); EOS% 0.6 % (0.0-10.0); HEMATOCRIT 29.9 % (37.0-47.0); HEMOGLOBIN 10.2 g/dL (12.0-16.0); IMM GRAN# 0.14 X1000 (0.0-0.04); IMM GRAN% 0.9 % (0.0-0.5); LYMPH# 2.01 X1000 (1.2-3.4); LYMPH% 13.3 % (20.5-51.1); MCH 26.7 PG (27-31); MCHC 34.1 g/dL (33-37); MCV 78.3 FL (81-99); MONO# 1.96 X1000 (0.11-0.59); MPV 9.8 FL (7.4-10.4); NEUT# 10.88 X1000 (1.4-6.5); PLT 473 X1000 (130-400); RBC 3.82 XMIL (4.2-5.4); RDW 20.1 % (11.5-14.5); WBC 15.11 X1000 (4.8-10.8)
[2019-01-02 11:33] LABS: ANISOCYTOSIS 1+; HYPOCHROM 1+; LYMPHS 18 % (21-51); MONO 10 % (1-9); SEGS 72 % (42-75)
[2019-01-02 13:39] VITALS: BP 136/92
[2019-01-02] MEDS: NORCO-7.5 PO PRN (14:23)
[2019-01-02] MEDS: CATAPRES-TTS-2 TD SCH (17:14)
[2019-01-02] MEDS: ATARAX PO SCH (17:16)
[2019-01-02] MEDS: NORVASC PO SCH (17:16)
[2019-01-02] MEDS: TOPROL XL PO SCH (17:17)
[2019-01-02] MEDS: PEPCID PO SCH (17:17)
--- NOTE | 2019-01-02 17:29 | NEPHROLOGY PROGRESS NOTE ---
DATE: 01/02/2019 SUBJECTIVE: She is still having pain in the right flank. No shortness of breath, nausea or vomiting. OBJECTIVE: Vital Signs: Blood pressure 116/71, heart rate 71, respirations 18, afebrile. General: No acute distress. Skin: Warm and dry. Neck: Neck veins are not distended. Heart: Regular. No gallops. Lungs: Equal. No crackles. Abdomen: Tender in the right upper quadrant. No guarding or rebound. Bowel sounds are present. Extremities: Have no edema, clubbing, or cyanosis. IMPRESSION: 1. Chronic kidney disease 5D. She is undergoing her routine dialysis today with 2 L ultrafiltration as her blood pressure allows. Electrolytes/acid base/anemia/hypertension all within target. 2. Acute liver injury. Biopsy pending. cc: Jersey Hannah MD
--- NOTE | 2019-01-02 20:44 | DISCHARGE SUMMARY ---
ADMISSION DATE: 12/26/2018 DISCHARGE DATE: 01/02/2019 CONSULTATIONS: 1. Nephrology, Dr. Hannah. 2. GI, Dr. Arriaza. 3. Surgery, Dr. Alonso. PROCEDURES: 1. Dialysis catheter placement. DISCHARGE DIAGNOSES: 1. End-stage renal disease, on dialysis. 2. Possible pneumonia. 3. Transaminitis. 4. Diabetes mellitus. 5. Chronic systolic congestive heart failure. 6. Hypertension. HOSPITAL COURSE: The patient was admitted initially, as her hemodialysis catheter had become displaced, and she needed new access. This was performed by Dr. Alonso without major issue, and she was started back on her regular Dzlfycn-Pxgfwuht-Ndeidtmb dialysis. This. This performed by Dr. Alonso without major issue and put back on her regular to Friday dialysis. During this process, she was incidentally found to have a significantly elevated bilirubin at 3.18, which trended up to 5.37. AST and ALT were also modestly elevated,and alkaline phosphatase was elevated into the 800s to 900s. The initial thought was that it might be a retained stone. She had recently had her gallbladder removed; however, MRCP showed no obstruction. Ultrasound showed no dilation, obstruction, or acute process,only mild fatty liver. Gastroenterology was on board at that point. They performed a number of labs, which all came back negative, including a hepatitis screen and various autoimmune studies. None of these came back with significant results. Eventually, a liver biopsy was performed, with results pending at the time of discharge. Just prior to discharge, the patient had increased cough and leukocytosis, although oxygenation remained stable, and she was never febrile. There was some concern for pneumonia. A chest X was obtained which really did not show anything, but she did have rales on the right lower lobe on exam, and increased cough and leukocytosis. She was started on antibiotics. Initially planned on broad-spectrum antibiotics, given hospitalization for several days, but the patient refused IV. It was discussed that this was suboptimal, but as the patient remained adamant in her refusal of the IV, she was started on p.o. Levaquin. Subsequently, her white count did come down. Her cough was improving at the time of discharge. DISCHARGE VITAL SIGNS: Temperature 98.8, pulse 75, respirations 16, blood pressure 136/92, O2 saturation 100% on room air. DISCHARGE DIET: Renal diabetic. DISCHARGE MEDICATIONS: Hydralazine 25 mg p.o. every 8, clonidine patch every week, Colace 100 mg p.o. daily, Lantus 30 mg subcutaneously daily, Norvasc 5 mg p.o. daily, NovoLog 20 units subcutaneously before meals, Plavix 75 mg p.o. daily, Toprol-XL 100 daily, Zofran as needed, Benadryl 25 mg p.o. every 6 hours as needed, Levaquin 500 mg p.o. every 48 hours, MiraLAX as needed, Percocet every 8 hours p.r.n. as previously prescribed. FOLLOWUP AND PLAN: Patient to follow up with GI next week to go over biopsy results and make further plans regarding her unexplained elevations in LFTs and bilirubin. Continue short course of Levaquin for possible pneumonia. Follow up with Nephrology for regular dialysis. Follow up with PCP. Greater than 30 minutes spent arranging this discharge.
[2019-01-03] MEDS ORDERED: LEVAQUIN PO SCH (09:00)
== END 2019-01-02 15:33 | disposition home or self-care (01) | DRG 314 ==
LOC: ED 06:57 → 4N 06:57 → SUATTDRO 10:04 → OBSVTOIN 10:04
PROVIDERS: ATTEND Internal Medicine
CPT/HCPCS: 47000; 71010; 71045; 74181; 76700; 76942; 77001; 80053; 80069; 80076; 81001; 82103; 82390; 82948; 83516; 84703; 85025; 85027; 85610; 85730; 86038; 86039; 86235; 86255; 87088; 88307; 88313; 97162; 97530; 99284; A9270; C1750; J0330; J0360; J0690; J1644; J1815; J2405; J7030; J7050; XXXXX

== ENCOUNTER 2019-01-14 19:58 | Inpatient (IN) ==
[2019-01-14] MEDS ORDERED: NS 500 ML IV ONE ×2 (20:33→23:52)
[2019-01-14] MEDS ORDERED: ZOFRAN IV ONE (20:33)
--- NOTE | 2019-01-14 21:12 | Diag Imaging Result Doc PS360 ---
EXAM: CHEST-1 VIEW - 01/14/2019 HISTORY: sob TECHNIQUE: Portable chest COMPARISON: 01/02/2019 FINDINGS: Heart size appears mildly enlarged and stable. There is ill-defined infiltrate or edema with apparent small pleural effusion on the right similar to prior. The left lung appears grossly clear. There is no pneumothorax identified. Central venous catheter remains in place. IMPRESSION: Stable mild cardiomegaly. Ill-defined infiltrate or edema with apparent small pleural effusion on the right similar to prior. Electronically signed by Yayo Soto 01/14/2019 9:10 PM
[2019-01-14 21:27] LABS: BASO# 0.05 X1000 (0.0-0.2); BASO% 0.3 % (0.0-0.8); EOS# 0.09 X1000 (0.0-0.7); EOS% 0.5 % (0.0-10.0); HEMATOCRIT 31.1 % (37.0-47.0); HEMOGLOBIN 10.7 g/dL (12.0-16.0); IMM GRAN# 0.11 X1000 (0.0-0.04); IMM GRAN% 0.6 % (0.0-0.5); LYMPH# 1.74 X1000 (1.2-3.4); LYMPH% 9.5 % (20.5-51.1); MCH 26.6 PG (27-31); MCHC 34.4 g/dL (33-37); MCV 77.4 FL (81-99); MONO# 1.22 X1000 (0.11-0.59); MONO% 6.7 % (1.7-9.3); MPV 9.4 FL (7.4-10.4); NEUT# 15.04 X1000 (1.4-6.5); NEUT% 82.4 % (42.2-75.2); PLT 711 X1000 (130-400); RBC 4.02 XMIL (4.2-5.4); RDW 21.6 % (11.5-14.5); WBC 18.25 X1000 (4.8-10.8)
[2019-01-14 22:01] LABS: ALB/GLOB RATIO 0.6; ALBUMIN 2.8 g/dL (3.5-5.0); CALCIUM 9.2 mg/dL (8.8-10.2); CREATININE 2.5 mg/dL (0.5-0.9); PHOSPHORUS 3.8 mg/dL (2.7-4.5); POTASSIUM 4.4 mmol/L (3.5-5.1); TOTAL BILIRUBIN 6.21 mg/dL (0.20-1.00); TOTAL PROTEIN 7.6 g/dL (6.3-8.3)
--- NOTE | 2019-01-14 23:33 | PROVIDER DOCUMENTATION ---
This chart was entered by Sophy Saab Scribe, acting as scribe for Jose Juan Serra MD. HPI-General Adult - General Chief Complaint: Vomiting Stated Complaint: VOMITING Time Seen by Provider: 01/14/19 20:32 Source: patient Allergies/Adverse Reactions: Patient Allergies Allergy/AdvReac Type Severity Reaction Status Date / Time No Known Allergies Allergy Verified 12/02/15 00:59 Home Medications: Home Medication List Medication Instructions Recorded Confirmed Last Taken Type Amlodipine [Norvasc] 5 mg PO DAILY 12/06/18 12/26/18 12/25/18 History Clonidine [Catapres-Tts 2] 1 patch TD Q7D 12/06/18 12/26/18 12/19/18 History Clopidogrel [Plavix] 75 mg PO DAILY 12/06/18 12/26/18 12/25/18 History Docusate Sodium [Colace] 100 mg PO DAILY PRN 12/06/18 12/26/18 12/25/18 History Furosemide 20 mg PO DAILY 12/06/18 12/26/18 12/25/18 History Hydralazine [Apresoline] 25 mg PO Q8H 12/06/18 12/26/18 12/25/18 History Insulin Aspart [Novolog Flexpen] 20 units SUBQ AC 12/06/18 12/26/18 12/25/18 History Metoprolol Succinate E.r. [Toprol 100 mg PO DAILY 12/06/18 12/26/18 12/25/18 History Xl] Ondansetron HCl [Zofran] 1 tab PO DIRECTED 12/06/18 12/26/18 Unknown History Oxycodone/APAP 5 mg/325 mg 1 ea PO Q8H PRN #10 tab 12/10/18 12/26/18 12/25/18 Rx [Percocet-5] Polyethylene Glycol 3350 [Miralax] 17 gm PO DAILY #15 powder, packet 12/10/18 12/26/18 12/25/18 Rx Insulin Glargine,Hum.rec.anlog 30 unit SQ DAILY 12/26/18 12/26/18 12/25/18 History [Lantus Solostar] Diphenhydramine [Benadryl] 25 mg PO Q4-6H PRN PRN cap 01/02/19 Unknown Rx Levofloxacin [Levaquin] 500 mg PO EVERY OTHER DAY #3 tab 01/02/19 Unknown Rx Oxycodone HCl/Acetaminophen 1 - 2 ea PO Q6-8H PRN PRN #10 tab 01/14/19 Unknown Rx [Percocet 5-325 mg Tablet] - History of Present Illness -Gen Adult Nature of Presenting Problems: Pt is 43/F presenting to ED w/ n/v for the last 3 days. Pt is current dialysis pt and has had dialysis today. Pt sts that Dr. Wiley gave her Zofran in IV, but she does not have any at home. Pt sts that she has not had hx of n/v like this before. Pt is also diabetic. Location of Pain/Injury: reports: abdomen Pain Radiation: reports: no radiation Severity: reports: moderate Onset/Duration: reports: 3 days ago Timing: reports: still present Context/Activities at Onset: reports: none Modifying Factors: improves with: nothing Associated Symptoms: reports: nausea, vomiting Similar Symptoms Previously?: No Recently seen or treated by another doctor?: No Review of Systems - Adult - REVIEW OF SYSTEMS - ADULT Constitutional: reports: no symptoms reported. denies: chills, fever Eyes: reports: no symptoms reported Ears, Nose, Mouth & Throat: reports: no symptoms reported Cardiovascular: reports: no symptoms reported Respiratory: reports: no symptoms reported Gastrointestinal: reports: nausea, vomiting Genitourinary: reports: no symptoms reported Musculoskeletal: reports: no symptoms reported Integumentary: reports: no symptoms reported Neurological: reports: no symptoms reported. denies: dizziness/vertigo, headache/migraines Psychiatric: reports: no symptoms reported Endocrine: reports: no symptoms reported Hematologic/Lymphatic: reports: no symptoms reported Allergic/Immunologic: reports: no symptoms reported All Other Systems: Reviewed and Negative Past History - Adult - PAST MEDICAL HISTORY-ADULT Review of Records: reports: Old Records Reviewed, Nursing Assessment Review, Medications Reviewed, Social history reviewed & non-contributory. Major Childhood Illnesses: reports: denies history Cardiovascular: reports: HTN, hyperlipidemia Respiratory: reports: denies history Gastrointestinal: reports: denies history Obstetrical/Gynecological: reports: denies history Genitourinary: reports: kidney disease Musculoskeletal: reports: chronic pain Neurological: reports: denies history Endocrine/Immune: reports: denies history Other Conditions: reports: denies history - PRIOR SURGERIES/PROCEDURES Surgical/Procedure History: reports: reviewed, not pertinent - PRIOR HOSPITALIZATIONS Prior Hospitalizations: reports: for other non-related - IMMUNIZATION STATUS Childhood Immunizations: See Nurse Assessment Flu Vaccine: See Nurse Assessment - FAMILY HISTORY Family History: reviewed, not pertinent - SOCIAL HISTORY Smoking: denies, non-smoker Substance Use: none/never Alcohol Use Frequency: never Living Situation: family Physical Exam-General - PHYSICAL EXAM-ADULT Initial Vital Signs Reviewed: Yes - CONSTITUTIONAL General Appearance: appears well, alert, mild distress - EYES Eyes: PERRL/EOMI, pink conjunctivae - HEAD, EARS, NOSE, MOUTH & THROAT HENMT: normocephalic/atraumatic, moist mucous membranes, normal ENT inspection, TMs normal, pharynx normal - NECK Neck: non-tender, supple, normal inspection - RESPIRATORY Respiratory: lungs clear - CARDIOVASCULAR Cardiovascular: regular rate, rhythm - GASTROINTESTINAL (ABDOMEN) Abdominal Exam: normal bowel sounds, soft, tenderness (general tenderness) - LYMPHATIC Lymphatic: no adenopathy - MUSCULOSKELETAL Back Exam: normal inspection, no CVA tenderness, no vertebral tenderness Extremity: normal range of motion, non-tender, normal gait, normal inspection - SKIN Integumentary: normal color, warm/dry - NEUROLOGIC Neurologic: grossly normal - PSYCHIATRIC Psych/Mental Status: normal mood/affect, normal thought content, normal thought process, oriented x 3 Progress - PLAN OF CARE/RESULTS Progress/Plan/Lab Results: Vital Signs - 8 hr 01/14/19 20:04 Temperature 97.5 F L Pulse Rate 95 H Respiratory Rate 20 Blood Pressure 144/95 O2 Sat by Pulse Oximetry 98 Orders Category Date Time Status Nursing- Obtain EKG ONCE Care 01/14/19 20:32 Active cxr [CHEST-1 VIEW] [RAD] Stat Exams 01/14/19 20:38 Ordered CBC WITH ELECTRONIC DIFF [HEME] Stat Lab 01/14/19 20:32 Uncollected COMPREHENSIVE METABOLIC PANEL [CHEM] Stat Lab 01/14/19 20:32 Uncollected LIPASE [CHEM] Stat Lab 01/14/19 20:32 Uncollected MAGNESIUM [CHEM] Stat Lab 01/14/19 20:32 Uncollected PHOSPHORUS [CHEM] Stat Lab 01/14/19 20:32 Uncollected UA [URINALYSIS] [URINALYSIS] Stat Lab 01/14/19 20:32 Uncollected 0.9% Sodium Chloride Inj [Ns] 500 ml Med 01/14/19 20:33 Active IV 999 mls/hr Ondansetron [Zofran] Med 01/14/19 20:33 Discontinued 8 mg IV NOW ONE EKG [EKG] Stat Ther 01/14/19 20:32 Ordered Result Diagrams: 01/14/19 21:10 01/14/19 21:10 Departure - Departure Date of Disposition Decision: 01/14/19 Time of Disposition Decision: 23:32 DIAGNOSIS: Right knee pain Qualifiers: Chronicity: chronic Qualified Code(s): M25.561 - Pain in right knee; G89.29 - Other chronic pain Disposition: HOME 01 Certified Medical Emergency: Emergent Condition: Stable Prescriptions: Oxycodone HCl/Acetaminophen [Percocet 5-325 mg Tablet] 1 - 2 ea PO Q6-8H PRN PRN #10 tab PRN Reason: Pain Referrals and Follow-Ups: None,PCP [Primary Care Provider] - - Critical Care Note This patient required my direct & personal management of CC.: No Attestation - Physician/ ANNELISE Attestation Patient care was provided by Advanced Practice Provider:: No The physician spent face to face time with patient:: Yes Advanced Practice Provider documentation review:: Supervising physician onsite and consulted in the evaluation and care of this patient. The physician did have a face to face encounter with the patient. This chart was documented by the indicated scribe, (Sophy Saab, [employer]) and accurately reflects the services I performed and decisions made by me, Jose Juan Serra MD, as attested by the provider's signature.
[2019-01-14] MEDS ORDERED: HUMULIN R SUBQ ONE (23:52)
[2019-01-15] MEDS ORDERED: LANTUS INSULIN SUBQ ONE (01:39)
[2019-01-15] MEDS: HUMALOG SUBQ SCH ×10 (03:08→22:21)
[2019-01-15] MEDS: APRESOLINE PO SCH ×3 (03:08→22:00)
[2019-01-15] MEDS ORDERED: SODIUM CHLORIDE 0.9% INJ SCH ×2 (05:13→08:00)
--- NOTE | 2019-01-15 06:41 | EKG Report ---
Test Performed on : 01/14/2019 8:51:23 PM Test Reason : chest pain Blood Pressure : / mmHG Vent. Rate : 086 BPM Atrial Rate : 086 BPM P-R Int : 152 ms QRS Dur : 100 ms QT Int : 384 ms P-R-T Axes : 071 063 188 degrees QTc Int : 459 ms Normal sinus rhythm. Possible Left atrial enlargement Nonspecific T wave abnormality Abnormal ECG When compared with ECG of 24-DEC-2018 14:01, (Unconfirmed) No significant change was found Unconfirmed Result
--- NOTE | 2019-01-15 08:18 | PROGRESS NOTE ---
DATE: 01/15/2019 SUBJECTIVE: Ms. Viera says that for several days now she has had her gallbladder out a couple weeks ago. Since that time, she has felt like she has had increasing nausea, just general abdominal discomfort. She has had a lot of acid reflux and this dry cough. OBJECTIVE: General: She is just uncomfortable. Abdomen: Uncomfortable. Stomach with some underlying constant nausea. Vital signs: Temperature 97.4 degrees, pulse 84, respirations 19, blood pressure 145/93. HEENT: Pupils are equal and round. Lungs: Clear in all lung shirley. Cardiovascular: Regular rhythm and rate without murmur or S3. Abdomen: Soft. Skin: Warm and dry. Weight 186 pounds. Height 5 feet 7 inches. LABORATORY DATA: White count 05976, hematocrit was 31, platelet count 711,000. Sodium 130, potassium 4.4, chloride 90, BUN 16, creatinine 2.4. Blood sugar was 651. Osmolality 293. AST 48, ALT was 29. Total bilirubin 6.21. IMAGING: Chest x-ray, stable mild cardiomegaly, ill-defined infiltrate or edema, apparent small pleural effusion on the right. ASSESSMENT AND PLAN: 1. Hyperglycemia and she had some leukocytosis, questionable infiltrate on x-ray. We will treat as possible pneumonia, although clinically I doubt that is what is going on. 2. Constant nausea suspicious for gastritis. Her alkaline phosphatase is 1000 and her bilirubin was 6.21. Transaminases, AST mildly elevated. We will get GI to evaluate. I do not know if she will need an ERCP, but make sure she is on proton pump inhibitor and may put her on Carafate 4 times a day. 3. Diabetes mellitus type 2. Presented with hyperglycemia. Her lab, really no significant acidosis but calculated osmolality 293, so we have her on a sliding scale, see if we can bring sugars down. 4. End-stage renal disease. Recently started on dialysis and I suspect the uremia may contribute to her nausea as well. Dr. Hannah following. I will get GI to follow as well. cc: Landon Hogue MD
--- NOTE | 2019-01-15 08:38 | PROGRESS NOTE ---
DATE: 01/15/2019 ADDENDUM: Difficult time drawing blood this morning. She appears to be intravascularly dry. I am going to give her some normal saline at 75 mL an hour. We will watch her volume status. I think she is a little bit dehydrated. We will consult GI. Started her on Protonix 40 mg IV q. 12 hours and give her some Carafate. She also has complained of a cough. She has some postnasal drainage. Her lungs do not sound congested. I wonder if this is mainly postnasal drainage and some sinus congestion, but she may also have a cough from her gastroesophageal reflux and irritation in the upper airway. cc: Landon Hogue MD
[2019-01-15] MEDS: LANTUS INSULIN SUBQ SCH (09:30)
[2019-01-15] MEDS: NORVASC PO SCH (09:32)
[2019-01-15] MEDS: PEPCID IV SCH ×2 (09:32→21:51)
[2019-01-15] MEDS: TOPROL XL PO SCH (09:32)
[2019-01-15] MEDS: PROTONIX IV SCH ×2 (09:33→21:47)
[2019-01-15] MEDS: PLAVIX PO SCH (09:33)
[2019-01-15] MEDS: HEPARIN SUBQ SCH ×2 (09:33→17:43)
[2019-01-15] MEDS: NS 1,000 ML IV SCH ×2 (09:34→22:11)
[2019-01-15] MEDS: D5 NS 1,000 ML IV SCH (11:05)
[2019-01-15] MEDS ORDERED: CATAPRES-TTS-2 TD SCH (12:00)
[2019-01-15] MEDS: CARAFATE PO SCH ×3 (13:24→21:52)
[2019-01-15] MEDS: DILAUDID IV PRN (14:35)
--- NOTE | 2019-01-15 17:24 | NEPHROLOGY CONSULTATION ---
DATE: 01/15/2019 REASON FOR CONSULTATION: ESRD and medical management. HISTORY OF PRESENT ILLNESS: Ms. Viera is a 43-year-old, black female who is well known to us. She has CKD 5D and has been on dialysis for a short period of time using a tunneled catheter. She also has hypertension, diabetes, hyperlipidemia, etc. Her recent health has been dominated by right upper quadrant pain, and elevated bilirubin and alkaline phosphatase. She also has itching. She had her gallbladder removed without any improvement in her symptoms. A liver biopsy performed At her last admission was over-read by made by [facility] which demonstrated no significant inflammatory changes or hepatocyte necrosis or injury and no granulomata. They described sinusoidal dilation and mild associated fibrosis in the central lobular regions, suggestive of increased passive venous pressure. At any rate, she had her routine dialysis yesterday during which she was having nausea and vomiting. This was improved transiently with IV Zofran but continued after discharge so she came to the hospital after her treatment. She continues to have itching. She continues to have moderate right upper quadrant discomfort. No chills, fevers, sweats, night sweats, etc. PAST MEDICAL HISTORY: As above. HOME MEDICATIONS: Include clopidogrel, furosemide, hydralazine, clonidine, docusate, metoprolol, insulin, amlodipine, MiraLAX, diphenhydramine. ALLERGIES: None. SOCIAL HISTORY: No alcohol or tobacco. FAMILY HISTORY: Otherwise noncontributory. REVIEW OF SYSTEMS: Otherwise noncontributory. PHYSICAL EXAMINATION: Vital Signs: Blood pressure 138/85, heart rate 79, respirations 16, afebrile. General: No acute distress. Skin: Warm and dry. HEENT: Conjunctivae are pink. Neck: Neck veins are not distended. Heart: Regular. No gallops. Lungs: Equal. No crackles or wheezes. Abdomen: Soft. Modestly tender in the right upper quadrant. No guarding or rebound. Bowel sounds are present. Extremities: Have no edema, clubbing, or cyanosis. Neurologic: Examination is nonfocal. IMPRESSION: 1. Chronic kidney disease 5D. She will have her next routine hemodialysis tomorrow using her tunneled dialysis catheter. Her electrolytes, acid-base, and anemia are all in target. She does have leukocytosis. 2. Elevated alkaline phosphatase and bilirubin. She has been seen by Dr. Mckeon and I appreciate his input. I will have radiology perform a Doppler of her hepatic vein. cc: Jersey Hannah MD
[2019-01-15] MEDS: COMPAZINE IV PRN (17:43)
--- NOTE | 2019-01-15 18:15 | Diag Imaging Result Doc PS360 ---
EXAM: US GB < RUQ (LIMITED) INDICATION: Doppler exam hepatic vein to r/o thrombus COMPARISON: 12/31/2018 FINDINGS: There has been a prior cholecystectomy. The common bile duct is normal in diameter. The hepatic veins are patent. They exhibit normal Doppler flow. The liver echotexture is grossly unremarkable. Portal venous flow is hepatopetal and pulsatile, which can be associated with congestive heart failure. There is an incidental right pleural effusion. The pancreas is obscured by bowel gas. The aorta and IVC are grossly unremarkable. The right kidney is grossly unremarkable. IMPRESSION: 1.The hepatic veins and exhibit normal flow with no evidence of thrombus. 2.Incidental right pleural effusion. Electronically signed by Jony Luo 01/15/2019 6:13 PM
[2019-01-15] MEDS ORDERED: D50W SYRINGE IV ONE (22:07)
[2019-01-16] MEDS: HUMALOG SUBQ SCH ×13 (00:22→23:59)
[2019-01-16] MEDS: D5 NS 1,000 ML IV SCH ×2 (00:23→15:50)
[2019-01-16] MEDS: HEPARIN SUBQ SCH ×5 (02:05→23:59)
[2019-01-16] MEDS: APRESOLINE PO SCH ×3 (04:05→21:26)
[2019-01-16] MEDS: DILAUDID IV PRN ×4 (04:05→23:47)
[2019-01-16] MEDS ORDERED: NS 2,000 ML MISC PRN (06:13)
[2019-01-16 06:24] LABS: CALCIUM 8.9 mg/dL (8.8-10.2); CREATININE 3.5 mg/dL (0.5-0.9); POTASSIUM 3.6 mmol/L (3.5-5.1)
--- NOTE | 2019-01-16 07:53 | GASTROENTEROLOGY CONSULTATION ---
DATE: 01/16/2019 REASON FOR CONSULTATION: Nausea, vomiting, abnormal LFTs. HISTORY OF PRESENT ILLNESS: Mrs. Gayle Viera is a 43-year-old woman with past medical history of hypertension, hyperlipidemia, insulin-dependent diabetes, end-stage renal disease on hemodialysis, systolic CHF with an EF of 30%, severe tricuspid regurgitation, and possible pulmonary hypertension who was recently hospitalized from December 26 to January 02 with displaced hemodialysis catheter requiring surgical replacement. During her hospitalization, she was noted to have worsening cholestatic LFTs and jaundice. Chronic liver disease workup was negative. The patient underwent MRCP that was negative for biliary obstruction. Liver biopsy was performed and the patient was discharged with pathology pending. It was initially thought that her LFTs were abnormal secondary to drug-induced liver injury. She represented yesterday with 3 days of intractable nausea, vomiting, and epigastric pain. The patient denies having any similar symptoms like this in the past. She denies any fevers, chills, sweats. She does have constipation with hard stools. No rectal bleeding or melena, lightheadedness, chest pain. PAST SURGICAL HISTORY: The patient underwent laparoscopic cholecystectomy on 12/07/2018 with intraoperative cholangiogram that was negative for biliary obstruction, tubal ligation, right chest dialysis catheter, left wrist surgery. SOCIAL HISTORY: No smoking, alcohol, or drug use. FAMILY HISTORY: Significant for hypertension, kidney disease, prostate cancer. No family history of liver disease. ALLERGIES: No known drug allergies. MEDICATIONS: Plavix, furosemide, hydralazine, clonidine, docusate, metoprolol, insulin, amlodipine, MiraLAX, Benadryl. PHYSICAL EXAMINATION: Vital Signs: Temperature 98.3 degrees, heart rate of 63, respiratory rate 17, blood pressure 134/75, O2 saturation 95% on room air. Generally: Patient is awake, alert, oriented, in no acute distress. HEENT: Sclerae shows icterus. Extraocular motor intact. Moist mucous membranes. Neck: Supple. No JVD or lymphadenopathy. Cardiac: Regular rate and rhythm. No murmurs, rubs, or gallops. Lungs: Clear to auscultation bilaterally. Abdomen: Soft, nontender, nondistended. Normoactive bowel sounds. No rebound or guarding. Extremities: With 1+ pitting edema bilaterally. No clubbing or cyanosis. Neurologic: Nonfocal. No asterixis. Skin: Warm and well perfused. LABORATORY DATA: White count of 18.2, hemoglobin of 10.7, platelets of 711,000. Sodium 130, potassium 4.4, chloride 90, bicarb 22, iron gap of 18, BUN of 16, creatinine of 2.5. Glucose of 500, total bilirubin of 6.2 from 4.6 on discharge, AST of 48, ALT of 29, alkaline phosphatase of 1,111, total protein of 7.6, albumin of 2.8, lipase of 52. Liver biopsy pathology received on 12/31/2018 shows venous outflow impairment pattern with mild centrilobular sinus chuy fibrosis without definite portal phase fibrosis. The findings of venous outflow impairment pattern can be seen in the setting of congestive or right-sided heart failure as well as various obstructive thrombotic processes, including venous outflow of the liver. IMAGING: Chest x-ray shows stable mild cardiomegaly, ill-defined infiltrate or edema with apparent small pleural effusion on the right, similar to prior. Abdominal ultrasound with Doppler shows no evidence of thrombus in the hepatic veins which exhibit normal flow. Incidental right pleural effusion. CBD is normal diameter. The liver echotexture is grossly unremarkable. Portal venous flow is hepatopetal and pulsatile, which can be associated with congestive heart failure. ASSESSMENT AND PLAN: Ms. Gayle Viera is a 43-year-old woman with past medical history significant for end-stage renal disease, on hemodialysis Tuesdays, , and Saturdays, systolic congestive heart failure with an ejection fraction of 30%, findings concerning for right- sided heart failure, including severe tricuspid regurgitation and pulmonary hypertension, insulin- dependent diabetes, status post cholecystectomy and cholestatic LFTs with evidence of venous outflow obstruction, who presents with intractable nausea and vomiting for 3 days. Her labs are notable for worsening cholestatic liver pattern without evidence of acute liver failure. She does have significant hyperglycemia and notable persistent leukocytosis. I suspect that her nausea and vomiting is likely secondary to gastroparesis in the setting of uncontrolled hyperglycemia. We will treat her supportively with antiemetics and diabetic clear liquids for now. She is also on a PPI 40 mg IV b.i.d. We will control her hyperglycemia with insulin. In regards to her abnormal LFTs, she had an ultrasound done on admission that was negative for Budd-Chiari cirrhosis or evidence of chronic liver disease. I am concerned that her elevated LFTs may be related to right-sided heart failure, which will require a Cardiology consultation and possible right-sided heart catheterization to evaluate for pulmonary hypertension and right-sided heart failure. For her end-stage renal disease, Dr. Hannah has been consulted. We will continue hemodialysis per renal. For her anemia, this is stable. No overt bleeding. We will trend her H and H daily. For constipation. Will give her MiraLAX daily. Hypertension. Defer management to primary team. We will trend her LFTs daily. We will follow with you. Please call with any questions or concerns.
--- NOTE | 2019-01-16 10:10 | PROGRESS NOTE ---
DATE: 01/16/2019 SUBJECTIVE: Had a little better night. She still has some low-grade nausea. She remains afebrile. OBJECTIVE: Vital signs: Temperature 97.6 degrees, pulse 64, respirations 17, blood pressure 127/87. HEENT: Pupils are equal and round. Lungs: Clear in all shirley. Cardiovascular: Regular rhythm and rate without murmur or S3. Abdomen: Soft. Skin: Warm and dry. She is going to get dialysis today. ASSESSMENT AND PLAN: This is a 43-year-old with past medical history significant for end-stage renal disease, on hemodialysis Tuesdays, , and Saturdays, systolic congestive heart failure with ejection fraction of 30% and findings concerning for right-sided heart failure including severe tricuspid regurgitation and pulmonary hypertension. She has a history of insulin- dependent diabetes. She presented with significant hyperglycemia and persistent leukocytosis. The suspicion is that the nausea is from gastroparesis in the setting of uncontrolled hyperglycemia. Her liver function tests, ultrasound done on admission is negative for Budd- Chiari, cirrhosis, no evidence of chronic liver disease, and so there is concern that the elevated liver function tests may be from right-sided failure. Cardiology was consulted. Dr. Hannah is involved. Appreciate Dr. Mckeon's help. Will get dialysis today. Continue to follow sugars. MEDICATIONS: She is on Norvasc 5 mg daily, clonidine patch 1 a week, Plavix 75 mg a day, heparin 5000 units subcutaneously q.8 hours, insulin glargine 30 units daily, metoprolol 100 mg p.o. daily, normal saline at 75 mL an hour, Protonix 40 mg IV q.12, MiraLAX 17 g daily. cc: Landon Hogue MD
[2019-01-16] MEDS: PROTONIX IV SCH (12:09)
[2019-01-16] MEDS: MIRALAX PO SCH (12:33)
[2019-01-16] MEDS: PROTONIX PO SCH ×2 (12:34→19:36)
[2019-01-16] MEDS: NORVASC PO SCH (12:34)
[2019-01-16] MEDS: TOPROL XL PO SCH (12:34)
[2019-01-16] MEDS: PLAVIX PO SCH (12:34)
[2019-01-16] MEDS: LANTUS INSULIN SUBQ SCH (12:34)
[2019-01-16] MEDS: NS 500 ML IV SCH (12:35)
[2019-01-16] MEDS: NS 1,000 ML IV SCH ×2 (12:36→23:59)
--- NOTE | 2019-01-16 19:09 | NEPHROLOGY PROGRESS NOTE ---
DATE: 01/16/2019 SUBJECTIVE: She is on dialysis currently. She states she had 1 episode of vomiting last night. strip tank tender in the right flank. OBJECTIVE: Vital Signs: Blood pressure 127/87, heart rate 64, respirations 17, afebrile. General: No acute distress. Skin: Warm and dry. Neck: Neck veins are not distended. Heart: Regular. No gallops. Lungs: Equal. No crackles. Abdomen: Soft, nontender. Bowel sounds present. Extremities: There is some flank edema. No clubbing or cyanosis. No edema in the legs. IMPRESSION: 1. Chronic kidney disease 5D. She is currently receiving her routine hemodialysis treatment. 2. Elevated alkaline phosphatase and albumin. Data so far suggest passive congestion. Cardiology consult has been placed. cc: Jersey Hannah MD
--- NOTE | 2019-01-16 19:14 | CONSULTATION ---
DATE OF CONSULTATION: 01/16/2019 IMPRESSION: 1. Elevated bilirubin and alkaline phosphatase with very unimpressive serum transaminases most suggestive of cholestatic picture. I agree with initial concern that this may be drug-induced as picture is atypical for hepatic congestion from congestive heart failure. Nevertheless, her inferior vena cava on repeat echocardiography today does appear to be mildly distended after dialysis today, suggesting that she may have some right-sided volume overload. 2. End-stage renal disease requiring chronic hemodialysis. 3. Cardiomyopathy with left ventricular ejection fraction around 35% in the setting of global hypokinesis, as well as mild right-sided chamber enlargement with significant tricuspid regurgitation, and mild to moderate pulmonary hypertension by Doppler. 4. Longstanding insulin-requiring diabetes mellitus. 5. Nausea and vomiting on presentation. I agree with suspicion that this is likely related to gastroparesis. 6. Hypertension. 7. Status post fairly recent laparoscopic cholecystectomy. RECOMMENDATIONS: 1. Try and determine central venous pressure via the patient's dialysis catheter in her left subclavian vein. 2. Suggest empirically trying to pull more volume off with dialysis. 3. Consider possible offending drugs that may be causing cholestatic picture. It is noteworthy that she has been on Pravachol 80 mg daily up until this last admission. This was discontinued. Consider also possibility that hydralazine may be causing it. However, she has been on hydralazine for some time, and this would seem less likely. HISTORY: This 43-year-old, female with past history of end-stage renal disease requiring hemodialysis, insulin-requiring diabetes mellitus for 20 years or so, hypertension, cardiomyopathy, and mild to moderate pulmonary hypertension, was admitted with recurrent nausea and vomiting. She really has not been able to eat much over the last several days. She has had some diffuse abdominal discomfort, more so in the right upper quadrant following recent laparoscopic cholecystectomy several weeks ago. She denies shortness of breath on room air. There has been no chest pain. Laboratory data indicated significant elevated bilirubin and alkaline phosphatase without significant elevation in serum transaminases. Cardiology was consulted regarding the possibility of right-sided congestive heart failure and associated hepatic congestion. PAST MEDICAL HISTORY: 1. End-stage renal disease requiring hemodialysis. 2. Diabetes mellitus requiring insulin for 20 years. 3. Hypertension. 4. Cardiomyopathy. 5. Status post fairly recent laparoscopic cholecystectomy 12/07/2018 with intraoperative cholangiogram negative for biliary obstruction. 6. Status post tubal ligation. 7. Status post unspecified left wrist surgery for repair fracture. ALLERGIES: She has no known drug allergies. MEDICATIONS ON ADMISSION: As listed. SOCIAL HISTORY: She does not smoke or use alcohol. FAMILY HISTORY: Positive for hypertension diabetes mellitus, and kidney disease. REVIEW OF SYSTEMS: Pulmonary: Negative. Gastrointestinal: Noteworthy for nausea and vomiting and some diffuse abdominal discomfort, but negative for melena or bright red blood per rectum. Constitutional: Negative. Review of systems is negative/noncontributory with 14 total systems reviewed. PHYSICAL EXAMINATION: General: This is am overweight adult -[place] female in no distress. Vital signs: Blood pressure 127/87 heart rate 64 and regular. Oxygen saturation greater than 96% on room air. HEENT exam: Extraocular movements intact. Mucous membranes are moist. Neck: Supple. Jugular venous distention cannot be appreciated. Patient has an IV in the right external jugular vein, making inspection of neck veins difficult. Chest: Clear to auscultation bilaterally. Cardiac Exam: Reveals a regular rate and rhythm without appreciable murmur or gallop. Abdomen: Soft. There is mild diffuse abdominal tenderness, more so in the right upper quadrant. Hepatomegaly cannot be appreciated. Bowel sounds are normal. Extremities: Demonstrate trace edema. Neurologic: Reveals her to be alert and fully oriented. Speech is fluent. She moves all 4 extremities equally well. Skin: Warm, dry. Psychiatric: Reveals mood to be appropriate. DATA: A 12 lead EKG obtained yesterday demonstrates normal sinus rhythm, possible left atrial abnormality, and nonspecific T-wave abnormality. LABORATORY DATA: Includes a sodium 138, potassium 3.6, chloride 100, carbon dioxide 25. BUN 23, creatinine 3.5, glucose 62. TSH 2.42, total bilirubin 6.21, AST 48, ALT 29, alkaline phosphatase 1111, albumin 2.8. DIAGNOSTIC DATA: Echocardiography performed and preliminary report indicates left ventricular ejection fraction 35 to 40 percent in the setting of global hypokinesis, mild right-sided chamber enlargement, and at least moderate tricuspid regurgitation. Estimated systolic PA pressure is approximately 50 mmHg. The inferior vena cava appears mildly dilated suggesting mild elevation central venous pressure. Central venous pressure measured via patient's hemodialysis catheter and CVP is reportedly 11. cc: Kamar Leonardo MD
--- NOTE | 2019-01-16 20:16 | PROVIDER PROGRESS NOTE ---
Progress Note SUBJECTIVE: No acute overnight events. Afebrile. No N/V/F, CP, SOB. Mild RUQ abdominal pain. +bowel movements. Underwent dialysis today. OBJECTIVE: GEN: awake, alert, NAD HEENT: anicteric, MMM, EOMI NECK: supple, no LAD PULM: CTAB, no wheezing CV: RRR, no murmurs ABD: soft ND, NABS, BS present, minimal TTP in RUQ, no rebound or guarding EXT: no cce NEURO: nonfocal LABS: 01/16/19 05:16 Sodium 138 Potassium 3.6 D Chloride 100 Carbon Dioxide 25 BUN 23 H Creatinine 3.5 H Glucose 62 L D A/P: Ms. Gayle Viera is a 43-year-old woman with ESRD on HD TTS, systolic congestive heart failure with an ejection fraction of 30-35%, severe TR, probable pulmonary hypertension, IDDM2, s/p cholecystectomy, cholestatic liver injury with evidence of venous outflow obstruction on recent liver biopsy, who presented with intractable nausea and vomiting for 3 days from likely gastroparesis exacerbation. # N/V: improved with glycemic control; recommend small frequent low fat meals; continue antiemetics prn; on PPI # Gastroparesis: plan as above 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: U/S and MRCP negative for hepatic vein thrombus or Budd Chiari; cardiology consulted to evaluate for right-sided heart failure # ESRD: on HD per renal # IDDM2: gylcemic control per primary # Anemia: stable # Leukocytosis/thrombocytosis: no localizing infectious symptoms; unclear etiology; recommend hematology evaluation; also to evaluate for hypercoagulable state # Constipation: continue miralax We will follow with you. Please call with any questions or concerns.
--- NOTE | 2019-01-16 22:19 | HISTORY AND PHYSICAL ---
CHIEF COMPLAINT: Nausea, vomiting. HISTORY OF PRESENT ILLNESS: This is a 43-year-old female who was recently admitted to our service on 12/26/2018. She has a past medical history of end- stage renal disease with Friday, , Friday hemodialysis, diabetes mellitus type 2 requiring insulin, heart failure with an ejection fraction of 35, hypertension, cholecystitis with a recent cholecystectomy around a month ago, anxiety and anemia of chronic disease. She has had vomiting for the past 3 days. No diarrhea. She denies fever or chills. States her blood sugars have been high. She did not take her long-acting insulin today. On arrival, her blood glucose was 651. Total bilirubin is elevated slightly more than usual at 621. She will be admitted for further evaluation and treatment. PAST MEDICAL HISTORY: See HPI. PREVIOUS SURGICAL HISTORY: Laparoscopic cholecystectomy on 12/07/2018, tubal ligation, right chest dialysis catheter, left wrist surgery. SOCIAL HISTORY: No tobacco, alcohol or illicit drugs. FAMILY HISTORY: Hypertension, kidney disease, prostate cancer in first-degree relatives. ALLERGY: No known drug allergies. HOME MEDICATION: Benadryl 25 mg q.4-6, Colace 100 mg p.o. daily, furosemide 20 mg p.o. daily, NovoLog 20 units subcutaneous a.c., MiraLax 17 g p.o. daily, Norvasc 5 mg p.o. daily, clonidine TTS 2 one patch q.7, Plavix 75 mg p.o. daily, hydralazine 25 mg p.o. q.8, Lantus 30 units subcutaneous daily, metoprolol 100 mg p.o. daily. REVIEW OF SYSTEMS: Fourteen-point review of systems conducted with the patient. Pertinent positives listed above in the HPI. All other systems reviewed and found to be negative. PHYSICAL EXAMINATION: VITAL SIGNS: Temperature 98.1, pulse 87, blood pressure 158/101, oxygen saturation 97% on room air. GENERAL: A disheveled-looking 43-year-old female appears chronically ill, answers all questions appropriately. She is alert and oriented times 3, sitting in the ER stretcher. HEENT: Head is atraumatic, normocephalic. Pupils equal, round, reactive to light. Extraocular eye movements intact. Sclerae are anicteric. Conjunctiva is pale. Oral mucosa is dry. NECK: Supple. No JVD. No thyromegaly. Trachea is midline. No cervical lymphadenopathy. CARDIAC: S1, S2 appreciated. No murmurs, gallops, rubs. LUNGS: Clear to auscultation bilaterally. No rhonchi, wheezes, rales. Symmetric rise and fall with respirations. ABDOMEN: Right upper quadrant tenderness. Surgical incisions clean, dry and intact. No signs of infection. Abdomen soft, nondistended. Bowel sounds normoactive. No pulsatile mass. No organomegaly. EXTREMITIES: Two-plus pitting edema bilateral lower extremities. One-plus pedal pulses bilaterally. GENITOURINARY: No bladder distention. Otherwise deferred. NEUROLOGIC: Alert and oriented times 3. Cranial nerves 2 through 12 grossly intact. DIAGNOSTIC DATA: Chest x-ray: Stable mild cardiomegaly, small pleural effusion on the right. LABORATORY DATA: WBC 18.25. Hemoglobin 10.7. Hematocrit 31.1. Platelet count 711. Sodium 130. Potassium 4.4. Chloride 90. Carbon dioxide 22. BUN 16. Creatinine 2.5. Glucose 651. Total bilirubin 621. ASSESSMENT AND PLAN: 1. Intractable nausea and vomiting. We will give Compazine. Phenergan has not given her much relief in the emergency room. We will place on the medical floor. This is likely related to diabetic gastroparesis. We will bring blood sugars under control. She received 2 L of fluid in the emergency room. However, she is a dialysis patient. We will not give more fluid at this time. 2. Diabetic gastroparesis. See #1. 3. Fluid volume depletion secondary to 1 and 2. She was given 2 L boluses in the emergency room. We will reevaluate fluid volume status this morning. 4. Hypertension. Continue home medication. 5. Diabetes mellitus type 2 with hyperglycemia. We will give half of her dose of Lantus now and then resume normal long-acting insulin tomorrow. Fingerstick blood sugars with low-dose sliding scale q.2 hours. Hopefully, her nausea and vomiting will subside once her blood sugars are brought back within normal limits. 6. End-stage renal disease with hemodialysis. Consult Dr. Hannah. Further recommendations per patient clinical course. Dictated by ALEXIS Coleman for Sher Blackwood MD cc: ALEXIS Coleman MD Independent exam and assessment performed by me at bedside. I discussed plan in detail with [employer]OSPECTING OBSERVER HELPER. Primary and most important goal in this patient is tight blood sugar control short and usp as this can impact symptoms of this patient. Other than moderate non peritoneal epigastric tenderness and decreased pulse volume, exam was benign. MTDD
[2019-01-17] MEDS: HUMALOG SUBQ SCH ×11 (01:23→23:43)
[2019-01-17] MEDS: D5 NS 1,000 ML IV SCH ×2 (02:09→18:33)
[2019-01-17] MEDS: APRESOLINE PO SCH ×3 (05:13→21:14)
[2019-01-17 06:16] LABS: ALB/GLOB RATIO 0.5; ALBUMIN 2.3 g/dL (3.5-5.0); CALCIUM 8.3 mg/dL (8.8-10.2); CREATININE 2.7 mg/dL (0.5-0.9); POTASSIUM 3.3 mmol/L (3.5-5.1); TOTAL PROTEIN 7.3 g/dL (6.3-8.3)
--- NOTE | 2019-01-17 08:11 | PROGRESS NOTE ---
DATE: 01/17/2019 SUBJECTIVE: Ms. Viera is feeling a little better she says in all areas. She is she is hungry, wants to eat. Abdomen is not as uncomfortable. Nausea has diminished and feels like she is breathing comfortably. She is asking about when she can go home tomorrow. OBJECTIVE: Vital Signs: Temperature 97.1 degrees, pulse 60, respirations 18, blood pressure 130/80. HEENT: Pupils are equal and round. Lungs: Clear in all lung shirley. Cardiovascular: Regular rhythm and rate without murmur or S3. Abdomen: Soft. Skin: Warm and dry. ASSESSMENT AND PLAN: 1. Intractable nausea and vomiting, which is improved. Dr. Mckeon is following. She has end- stage renal disease. She has systolic congestive heart failure with ejection fraction of 30%- 35%, severe tricuspid regurgitation, probable pulmonary hypertension. She has improved glycemic control. We have her on a proton pump inhibitor. Suspect gastroparesis. She is requesting regular food, so we will try her on a renal diet. 2. Cholestatic liver injury. Ultrasound and MRCP negative for hepatic vein thrombosis or Budd- Chiari. She does have right sided heart failure, so suspect hepatic congestion. 3. End-stage renal disease. Continue hemodialysis. Her volume status looks good. Electrolytes and acid-base look good. 4. Diabetes mellitus type 2. Sugars appear under better control. She is requesting food so we will put her on a diabetic renal diet and possibly could be discharged tomorrow depending on how we are doing. Her AST is 60, ALT 26, alkaline phosphatase 1025, total bilirubin is 4.0. cc: Landon Hogue MD
[2019-01-17] MEDS: PLAVIX PO SCH (09:01)
[2019-01-17] MEDS: TOPROL XL PO SCH (09:02)
[2019-01-17] MEDS: MIRALAX PO SCH (09:02)
[2019-01-17] MEDS: NORVASC PO SCH (09:02)
[2019-01-17] MEDS: LANTUS INSULIN SUBQ SCH (09:02)
[2019-01-17] MEDS: PROTONIX PO SCH ×2 (09:05→21:14)
[2019-01-17] MEDS: HEPARIN SUBQ SCH ×2 (09:05→16:44)
[2019-01-17] MEDS: DILAUDID IV PRN ×2 (09:11→21:17)
--- NOTE | 2019-01-17 09:19 | ECHO REPORT ---
ORDER DATE: 01/16/2019 SUMMARY: 1. Limited 2-dimensional and limited Doppler echocardiography study performed for followup of right ventricular function, pulmonary artery pressures, and central venous pressures. 2. Aortic valve is trileaflet and demonstrates mild sclerosis, but opens normally on 2- dimensional images. Doppler of aortic valve not performed. Mitral and tricuspid valves are without gross structural abnormality. Pulmonic valve is without gross structural abnormality. There is moderate tricuspid regurgitation and moderate pulmonic insufficiency. The estimated systolic PA pressure by Doppler is 65 to 70 mmHg, suggesting [id number] pulmonary hypertension. The aortic root is normal in size. 3. Normal left ventricular chamber size with mild concentric left ventricular hypertrophy is suggested. Estimated left ventricular ejection fraction is approximately 35%. Global hypokinesis appears to be present, with a greater degree of hypokinesis of the muqyr-ph-yys inferolateral region of the left ventricle. Left atrium appears [id number] enlarged. The right atrium appears mildly enlarged. The right ventricle appears mildly enlarged with moderately reduced right ventricular systolic function. 4. No pericardial effusion. 5. Right pleural effusion noted. 6. Appearance of inferior vena cava suggests elevated central venous pressure. cc: Kamar Leonardo MD
[2019-01-17] MEDS: NS 500 ML IV SCH (12:59)
[2019-01-17] MEDS: NS 1,000 ML IV SCH (13:30)
--- NOTE | 2019-01-17 14:08 | PROVIDER PROGRESS NOTE ---
Progress Note SUBJECTIVE: No acute overnight events. She reports improving epigastric pain. She had mild nausea/vomiting. +BMs. Tolerating diet. OBJECTIVE: Last Vital Signs Temp 96.4 F L 01/17/19 12:00 Pulse 66 01/17/19 12:00 Resp 17 01/17/19 12:00 BP 124/82 01/17/19 12:00 Pulse Ox 100 01/17/19 12:00 Height 5 ft 7 in Weight 186 lb 1 oz GEN: awake, alert, NAD HEENT: anicteric, MMM, EOMI NECK: supple, no LAD PULM: CTAB, no wheezing CV: RRR, no murmurs ABD: soft ND, NABS, BS present, minimal TTP in RUQ, no rebound or guarding EXT: no cce NEURO: nonfocal LABS: 01/16/19 05:16 Sodium 138 Potassium 3.6 D Chloride 100 Carbon Dioxide 25 BUN 23 H Creatinine 3.5 H Glucose 62 L D A/P: Ms. Gayle Viera is a 43-year-old woman with ESRD on HD TTS, systolic congestive heart failure with an ejection fraction of 30-35%, severe TR, probable pulmonary hypertension, IDDM2, s/p cholecystectomy, cholestatic liver injury with evidence of venous outflow obstruction on recent liver biopsy, who presented with intractable nausea and vomiting for 3 days from likely gastroparesis exacerbation. Seen by cardiology. # N/V: improved with glycemic control; continue small frequent low fat meals; continue antiemetics prn; on PPI # Gastroparesis: plan as above 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: U/S and MRCP negative for hepatic vein thrombus or Budd Chiari; cardiology consulted to evaluate for right-sided heart failure # ESRD: on HD per renal # IDDM2: gylcemic control per primary # Anemia: stable # Leukocytosis/thrombocytosis: no localizing infectious symptoms; unclear etiology; ordered hematology consult; also to evaluate for hypercoagulable state # Constipation: continue miralax We will follow with you. Please call with any questions or concerns.
[2019-01-18] MEDS: HEPARIN SUBQ SCH ×3 (00:07→18:13)
[2019-01-18] MEDS: HUMALOG SUBQ SCH ×9 (00:07→20:11)
[2019-01-18] MEDS: DILAUDID IV PRN ×3 (01:38→20:30)
[2019-01-18] MEDS: NS 1,000 ML IV SCH (01:55)
[2019-01-18] MEDS: APRESOLINE PO SCH ×3 (05:35→20:13)
[2019-01-18] MEDS: D5 NS 1,000 ML IV SCH ×3 (05:35→20:30)
[2019-01-18] MEDS: TOPROL XL PO SCH (08:38)
[2019-01-18] MEDS: PLAVIX PO SCH (08:39)
[2019-01-18] MEDS: NORVASC PO SCH (08:39)
[2019-01-18] MEDS: LANTUS INSULIN SUBQ SCH (08:39)
[2019-01-18] MEDS: PROTONIX PO SCH ×2 (08:39→20:11)
[2019-01-18] MEDS: MIRALAX PO SCH ×2 (08:39→20:11)
--- NOTE | 2019-01-18 09:14 | NEPHROLOGY PROGRESS NOTE ---
DATE: 01/18/2019 SUBJECTIVE: Ms. Viera is currently resting quietly in bed. Head of the bed is slightly elevated. She does have some positive swelling. No complaints of increased work of breathing. States abdomen is feeling slightly better. OBJECTIVE: Vital Signs: Her most recent vital signs are temperature 96.8 degrees, blood pressure 128/74, heart rate 63, respirations 16. She is on room air. Last recorded saturation 100%. She has had 3212 in. She has had 0 recorded out with need for dialysis per her routine in the a.m. Laboratory Data: These are ordered yet pending. Her last potassium was 3.3 with a previous hemoglobin 10.7. General: This is a 43-year-old female resting quietly in bed. She appears chronically ill, though no acute distress. Skin: Warm and dry. HEENT: Normocephalic, atraumatic. Conjunctiva is pale and pink. She has NIC. Mucous membranes are dry. Neck: Supple. Trachea midline. No evidence of JVD. Cardiovascular: She is regular rate and rhythm. She is without murmur or gallop. Lungs: Clear to auscultation bilaterally. Equal excursion. She is on room air. Abdomen: Soft, nontender. Positive bowel sounds. Extremities: Trace edema. No clubbing or cyanosis. Chest: Tunneled catheter remains to the right chest wall. No redness or drainage. ASSESSMENT AND PLAN: 1. Chronic kidney disease stage 5D. The patient is due for routine dialysis treatment in the a.m. No indications for intervention today. We will stop her IV fluid secondary to her lower extremity swelling and plan to challenge her outpatient dry weight in the morning. 2. Electrolytes and acid-base balance. These are stable. 3. Anemia. This is close to target. 4. Gastroparesis associated with nausea and vomiting. Patient did have an elevated alkaline phosphatase with low albumin. We have encouraged her to eat if possible. I would like to thank you for allowing us to follow with this patient. Dictated by ALEXIS Plata for Jersey Hannah MD Face to face encounter, data reviewed, discussed with Sam Jacinto on 01/18/19. I agree with the above assessment and plan of care. cc: ALEXIS Plata MD [facility]
--- NOTE | 2019-01-18 10:01 | PROGRESS NOTE ---
DATE: 01/18/2019 SUBJECTIVE: Ms. Viera is feeling a little bit better, still some low-grade nausea. She feels like she is a little bit constipated. OBJECTIVE: Vital Signs: Temp is 98 degrees, pulse 66, respirations 17, blood pressure 125/80. HEENT: Pupils are equal and round. Lungs: Clear in all lung shirley. Cardiovascular: Regular rhythm and rate without murmur or S3. Urine output (she is getting dialysis) yesterday recorded 5 L output. ASSESSMENT AND PLAN: 1. Chronic kidney disease stage 5D. Getting routine dialysis. Volume status and electrolytes are stable. We stopped her intravenous fluids due to extremity swelling, and continue to try and diurese her to dry weight. Her anemia is stable on target. 2. Gastroparesis with some nausea. 3. Cholestatic liver injury, venous outflow per ultrasound, and magnetic resonance cholangiopancreatography negative for hepatic vein thrombosis or Budd-Chiari. She does have right-sided heart failure. 4. Diabetes mellitus type 2. Continue pattern sugars. 5. Leukocytosis, thrombocytosis. No localizing infectious symptoms. Unclear of etiology. Will ask Hematology to see. 6. Constipation. I will add Colace to her regimen, 100 mg twice a day. She is getting MiraLAX 17 grams daily. cc: Landon Hogue MD
[2019-01-18] MEDS: COLACE PO SCH ×3 (10:40→20:13)
[2019-01-18] MEDS: NS 500 ML IV SCH (12:30)
--- NOTE | 2019-01-18 13:48 | HEMO/ONC CONSULTATION ---
DATE: 01/18/2019 REASON FOR CONSULT: We are being consulted for a patient regarding leukocytosis and thrombocytosis. HISTORY OF PRESENT ILLNESS: This is a 43-year-old, female who was recently admitted to the ER and subsequently the hospital with complaints of nausea and vomiting related to gastroparesis. She recently had a cholecystectomy and states that her nausea and abdominal pain have been increasing since. She has a history of end-stage renal disease with dialysis on Tuesdays, , and Saturdays. She denies diarrhea, fevers, or chills. Her blood sugars have been high. PAST MEDICAL HISTORY: End-stage renal disease with dialysis Friday, , Friday, type 2 diabetes, hypertension, anxiety, and anemia. PAST SURGICAL HISTORY: Cholecystectomy on 12/07/2018, tubal ligation, right chest dialysis catheter, left wrist surgery. SOCIAL HISTORY: Denies tobacco, alcohol, or any illicit drugs. DRUG ALLERGY: No known drug allergies. HOME MEDICATIONS: Benadryl, Colace, furosemide, NovoLog, MiraLAX, Norvasc, clonidine, Plavix, hydralazine, Lantus, metoprolol. REVIEW OF SYSTEMS: Abdominal pain, nausea, vomiting. PHYSICAL EXAMINATION: Vital Signs: Temperature 98.0 degrees, pulse rate 66, respiratory rate 17, blood pressure 125/80, O2 saturation 97% on 2 L via nasal cannula, 0/10 pain. General: Unkempt- appearing female. HEENT: Anicteric. PERRLA. Cardiovascular: Normal S1, S2. Respiratory: Lungs are clear to auscultation bilaterally. No use of respiratory accessory muscle. Abdomen: Soft, nondistended, nontender. Bowel sounds present. Neurological: Alert and oriented x3. Converses appropriately. LABORATORY: No labs today. On 01/14/2019, WBCs were 18.25, hemoglobin 10.7, hematocrit 31.1, platelet count 711,000. Total bilirubin 6.21 decreased to 4.0 on 01/17/2019, alkaline phosphatase 1025. ASSESSMENT: 1. Intractable nausea and vomiting. 2. Diabetic gastroparesis. 3. Diabetes mellitus type 2 with hyperglycemia. 4. End-stage renal disease, with hemodialysis. 5. Leukocytosis. 6. Thrombocytosis. PLAN: Her leukocytosis and thrombocytosis etiology are unclear at this time. We will order a lab workup for evaluation. The patient states she has a history of an episode sickle cell anemia when she was a teenager. We will evaluate and treat as necessary. Dictated by ALEXIS Phelps for Asim Crabtree MD Patient seen and examined. As above. Patient admitted with intractable nausea and vomiting. Dr. Oliveira has seen her and believes this may be partly related to diabetic gastroparesis. She also has abnormal LFTs which is being evaluated. Right heart failure is considered to be the cause and cardiology is consulted. She has significant leukocytosis and thrombocytosis. We will get peripheral blood evaluation started to evaluate for a myeloproliferative disorder. Thank you for this consultation. Asim Crabtree M.D. cc: Asim Crabtree MD [facility]
[2019-01-19] MEDS: HEPARIN SUBQ SCH ×3 (00:01→16:22)
[2019-01-19] MEDS: DILAUDID IV PRN ×5 (02:17→23:20)
--- NOTE | 2019-01-19 03:56 | GASTROENTEROLOGY PROGRESS NOTE ---
DATE: 01/18/2019 SUBJECTIVE: The patient is resting in bed. She denies any new complaints. She denies any fevers, rigors, or chills. She denies any abdominal pain today. She denies any fever, rigors, or chills. Denies any nausea or vomiting. She does complain of abdominal discomfort which is generalized. Her last bowel movement was 3 days ago. She does have a history of chronic constipation. OBJECTIVE: Vital Signs: Temperature 97.7 degrees, pulse rate of 61, respiratory rate of 17, blood pressure 106/60, saturating 97% on 2 L nasal cannula. Body weight of 197 pounds 8 ounces. BMI of 30.9 kg/m2. General Appearance: Moderately built, moderately nourished, lying in bed, in no acute distress. HEENT: Pale conjunctivae. Icteric sclerae. Neck: Supple. Abdomen: Soft. Discomfort in the periumbilical region. No rebound. No guarding. Extremities: No cyanosis, clubbing. Neurologic: Alert, awake, oriented x3. LABS: Her hemoglobin and hematocrit done on 01/14/2019 were 10.7 and 31.1. Her hepatic panel done on 01/17/2019 showed total bilirubin of 4, AST of 60, ALT 26, alkaline phosphatase 1025, total protein 7.3, albumin of 2.3. IMPRESSION/PLAN: 1. Cholestatic liver disease. Liver biopsy showed venous outflow impairment pattern with mild centrilobular sinus chuy fibrosis without definite portal-based fibrosis. According to the liver biopsy report, these findings of venous outflow impairment can be seen in the setting of congestive heart failure, right heart failure, as well as various obstructive or thrombotic processes involving the venous outflow of the liver. In this regard, cardiology consult has been called and hematology consult has been called with Dr. Crabtree. We will follow up on their recommendations. 2. End-stage renal disease, on hemodialysis per Dr Hannah. 3. Gastroparesis. Continue to take small, frequent meals. 4. Chronic constipation. We will increase her MiraLAX to 34 g twice daily. We have increased her Kayli-Colace to 2 capsules by mouth twice a day. 5. Diabetes. She is on sliding scale per primary care team. 6. Anemia. Continue to watch for now. 7. Leukocytosis and thrombocytosis. We will follow up on the consultations of hematology. 8. Nausea and vomiting intermittently, will follow. 9. History of systolic congestive heart failure. Ejection fraction of 35%. Severe tricuspid regurgitation and probable pulmonary hypertension. Cardiology consult has been called. 10. The above plans have been discussed with the patient and all questions were answered. Please call us with any further questions. cc: MD Landon Chen MD MTDD
[2019-01-19] MEDS: COMPAZINE IV PRN ×2 (04:51→22:11)
[2019-01-19] MEDS: APRESOLINE PO SCH ×4 (05:00→20:20)
[2019-01-19] MEDS: HUMALOG SUBQ SCH ×4 (06:05→20:22)
[2019-01-19] MEDS ORDERED: HEPARIN IV PRN ×2 (06:23→06:34)
[2019-01-19] MEDS ORDERED: TIGHT: 0.2 ML/HR FOR DIALYSIS MISC PRN (06:23)
[2019-01-19] MEDS ORDERED: NS 2,000 ML MISC PRN (06:23)
--- NOTE | 2019-01-19 09:05 | NEPHROLOGY PROGRESS NOTE ---
DATE: 01/19/2019 DATE AND TIME SEEN: On 01/19/2019 at 0720 hours. SUBJECTIVE: Ms. Viera is currently resting quietly in bed. She has a low affect today, not making eye contact. OBJECTIVE: Vital Signs: Temperature 98.3 degrees, blood pressure 117/84, heart rate 61, respirations 20. She is on room air. Last recorded saturation is 98%. She has had 3140 input and 180 output with need for dialysis today. LABORATORY DATA: The patient's last hemoglobin was 10.7 with her last potassium of 3.3. Labs are currently pending this a.m. PHYSICAL EXAMINATION: General: This is a 43-year-old female resting quietly in bed. She appears chronically ill, in no acute distress. Skin: Warm and dry. HEENT and Neck: Normocephalic, atraumatic. Conjunctivae are pale. Skin is warm and dry. She has positive JVD. Cardiovascular: Regular rate and rhythm. No murmur or gallop appreciated. Lungs: Clear to auscultation bilaterally equal excursion on room air. Abdomen: Soft, nontender, positive bowel sounds. Extremities: Have 1 to 2+ lower extremity edema. Integumentary: Tunnel catheter remains to the right chest wall without redness or drainage. Neurological: As mentioned above. ASSESSMENT AND PLAN: 1. Chronic kidney disease stage 5D. The patient is due for her routine dialysis treatment today. No indications for intervention. We will continue to dialyze on a 3K bath. She is to dialyze for 3.5 hours. We will attempt to pull patient below her dry weight with a challenge of 2 to 3 liters of ultrafiltration as tolerated. We may also plan for dialysis again in the morning to assist with her fluid volume overload and elevated blood pressure. 2. Electrolytes and acid-base balance with correction on dialysis. 3. Anemia. This is close to target. 4. Gastroparesis. Nausea and vomiting have improved. Abdomen is slightly swollen. 5. Fluid volume overload. The patient does have swelling. We will stop her IV fluids this morning. 6. Leukocytosis and thrombocytosis. This is now being followed by Dr. Crabtree. I would like to thank you for allowing us to follow with this patient. Dictated by ALEXIS Plata for Jersey Hannah MD Face to face encounter, data reviewed, discussed with Sam Jacinto on 01/19/19. I agree with the above assessment and plan of care. cc: ALEXIS Plata MD MTDD
--- NOTE | 2019-01-19 10:28 | PROGRESS NOTE ---
DATE: 01/19/2019 SUBJECTIVE: This patient is resting comfortably in bed. At this moment, she is getting dialysis and her blood pressure seems to be stable. It looks like she will get dialysis today and probably tomorrow as well. She states that she is not in pain right now, but she has been having severe weakness. Hematology/Oncology Department, as well as Nephrology and Cardiology on board. OBJECTIVE: Vital Signs: Temperature 98.3 degrees, pulse 61, respiratory rate 20, blood pressure 117/84, oxygen saturation 98 on room air. HEENT: Head normocephalic, no trauma. PERRLA. Neck: Supple. No JVD. No masses. Central trachea. Chest: Clear to auscultation. Some crepitus at the bases. Abdomen: Soft. Some tenderness to palpation at the level of the right flank. Positive bowel sounds. No peritoneal irritation. Extremities: There is 2+ to 3+ lower extremity edema. No clubbing. No cyanosis. Neurological examination: The patient is sleepy, but arousable. Oriented x3. She is following commands and moving all 4 extremities but she does have generalized weakness. LABORATORY: Pending lab work today, glucose 113. ASSESSMENT AND PLAN: 1. Intractable nausea and vomiting. She is feeling better. She is not complaining of nausea today. At the beginning she received fluids, but this has been stopped. It looks like she is tolerating a little bit more than her diet. 2. Diabetic gastroparesis. This is likely the cause of her nausea and vomiting. It seems to be better. We will continue to monitor. 3. Cardiomyopathy with left ventricular ejection fraction around 35%, as well as mild right-sided chamber enlargement with significant tricuspid regurgitation and moderate pulmonary hypertension by Doppler. Cardiology Department following. We will continue with the same medications and trying to pull out fluid with dialysis, as much as we can. 4. End-stage renal disease, continue with dialysis as scheduled. 5. Diabetes, seems to be stable at this moment. I will ask for a hemoglobin A1c. 6. Constipation. Continue with same management. 7. Leukocytosis with thrombocytosis, unclear etiology. Hematology/Oncology following this patient. 8. Cholestatic liver injury, venous outflow per ultrasound, no evidence of thrombus. Magnetic resonance cholangiopancreatography done on 12/28/2018 showed no evidence of biliary obstruction. Overall, she is feeling better, but she is really weak. She is tolerating her food also. She will be dialyzed again hopefully tomorrow. We will continue to monitor this patient closely. cc: Rasta Lindquist MD
[2019-01-19 11:26] LABS: ALBUMIN 2.3 g/dL (3.5-5.0); CREATININE 2.2 mg/dL (0.5-0.9); PHOSPHORUS 2.3 mg/dL (2.7-4.5); POTASSIUM 3.2 mmol/L (3.5-5.1)
[2019-01-19] MEDS: NORVASC PO SCH (12:24)
[2019-01-19] MEDS: PLAVIX PO SCH (12:24)
[2019-01-19] MEDS: PROTONIX PO SCH ×2 (12:25→20:21)
[2019-01-19] MEDS: TOPROL XL PO SCH (12:25)
[2019-01-19] MEDS: MIRALAX PO SCH ×2 (12:25→20:22)
[2019-01-19] MEDS: LANTUS INSULIN SUBQ SCH (12:25)
[2019-01-19] MEDS: COLACE PO SCH ×2 (12:27→20:22)
[2019-01-19] MEDS: NS 500 ML IV SCH (12:27)
[2019-01-19] MEDS ORDERED: ANALGESIC BALM TOP PRN (15:32)
--- NOTE | 2019-01-19 15:59 | Diag Imaging Result Doc PS360 ---
EXAM: KNEE 3 VIEWS LEFT HISTORY: pain TECHNIQUE: Left knee, three views COMPARISON: 12/24/2018 FINDINGS: No fracture. No dislocation. No other bony abnormality. Severe atherosclerosis. IMPRESSION: Severe atherosclerosis Electronically signed by Sergio Ledezma 01/19/2019 3:56 PM
--- NOTE | 2019-01-19 16:05 | Diag Imaging Result Doc PS360 ---
EXAM: KNEE 3 VIEWS RIGHT HISTORY: pain TECHNIQUE: Right knee, three views COMPARISON: None. FINDINGS: No fracture. No dislocation. Prominent atherosclerosis. No joint space narrowing. No bone spurring. IMPRESSION: Severe atherosclerosis. Electronically signed by Sergio Ledezma 01/19/2019 4:02 PM
--- NOTE | 2019-01-19 17:26 | HEMO/ONC PROGRESS NOTE ---
DATE: 01/19/2019 SUBJECTIVE: Patient lying in bed this morning. The patient has no complaints today. OBJECTIVE: Vital Signs: Temperature 98.2 degrees, pulse rate 63, respiratory rate 16, blood pressure 134/78, O2 saturation 97% on room air. She is in 0/10 pain. General: Chronically ill- appearing female in no acute distress. HEENT: Conjunctivae pale. Eyes PERRLA. Cardiovascular: Normal S1, S2. Regular rate and rhythm. Respiratory: Clear to auscultation. Abdomen: Soft, nontender, nondistended but protuberant. LABORATORY: No CBC today. Sodium 135, potassium 3.2, creatinine 2.2. ASSESSMENT: 1. Intractable nausea and vomiting. 2. Diabetes mellitus type 2 with hyperglycemia and gastroparesis. 3. End-stage renal disease with hemodialysis. 4. Leukocytosis. 5. Thrombocytosis. PLAN: She does have significant leukocytosis and thrombocytosis. We will get a peripheral blood evaluation to evaluate for myeloproliferative disorder. We will obtain a CBC, CRP, sedimentation rate, LDH, and reticulocyte count for evaluation. Dictated by ALEXIS Phelps for Asim Crabtree MD Patient seen and examined. As above. We had ordered labs for evaluation yesterday which for some reason somebody in the lab canceled it without informing me. We will reorder these labs. Await results. Plan further management accordingly. Asim Crabtree M.D. cc: Asim Crabtree MD [facility]
--- NOTE | 2019-01-19 23:37 | PROVIDER PROGRESS NOTE ---
Progress Note SUBJECTIVE:
[2019-01-20] MEDS: HEPARIN SUBQ SCH ×2 (00:45→11:21)
--- NOTE | 2019-01-20 02:42 | PROVIDER PROGRESS NOTE ---
Progress Note SUBJECTIVE: No acute overnight events. N/V resolved. Tolerating diet. +BMs. Ambulatory. Minimal RUQ pain. No rectal bleeding OBJECTIVE: Last Vital Signs Temp 98.7 F 01/20/19 00:00 Pulse 64 01/20/19 00:00 Resp 20 01/20/19 00:00 BP 101/55 01/20/19 00:00 Pulse Ox 96 01/20/19 00:00 Height 5 ft 7 in Weight 197 lb 8 oz GEN: awake, alert, NAD HEENT: anicteric, MMM, EOMI NECK: supple, no LAD PULM: CTAB, no wheezing CV: RRR, no murmurs ABD: soft ND, NABS, BS present, minimal TTP in RUQ, no rebound or guarding EXT: no cce NEURO: nonfocal LABS: 01/17/19 01/19/19 05:08 10:55 Sodium 137 135 L Potassium 3.3 L 3.2 L Chloride 100 99 Carbon Dioxide 24 L 26 BUN 12 13 Creatinine 2.7 H 2.2 H Glucose 79 123 H Calcium 8.0 L Phosphorus 2.3 L Total Bilirubin 4.00 H AST 60 H ALT 26 Alkaline Phosphatase 1025 H Total Protein 7.3 Albumin 2.3 L 2.3 L A/P: Ms. Gayle Viera is a 43-year-old woman with ESRD on HD TTS, systolic congestive heart failure with an ejection fraction of 30-35%, severe TR, probable pulmonary hypertension, IDDM2, s/p cholecystectomy, cholestatic liver injury with evidence of venous outflow obstruction on recent liver biopsy, who presented with intractable nausea and vomiting for 3 days from likely gastroparesis exacerbation. 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: ddx includes congestive heart failure, right heart failure, as well as various obstructive or thrombotic; U/S and MRCP negative for hepatic vein thrombus or Budd Chiari; cardiology consulted to evaluate for right-sided heart failure and undergoing more frequent dialysis to remove fluid; hematology consulted and workup for myeloproliferative disorder in process; no evidence of acute liver failure # N/V: improved with glycemic control; continue small frequent low fat meals; continue antiemetics prn; on PPI # Gastroparesis: plan as above # ESRD: on HD per renal # IDDM2: gylcemic control per primary # Anemia: stable # Leukocytosis/thrombocytosis: hematology following # Constipation: continue miralax Patient ok to be discharged from GI perspective with follow-up in clinic with Dr. Mckeon in 2 weeks. Please call with any questions or concerns. Will sign off
[2019-01-20] MEDS: DILAUDID IV PRN (03:20)
[2019-01-20] MEDS: APRESOLINE PO SCH ×2 (03:35→05:06)
[2019-01-20] MEDS: HUMALOG SUBQ SCH ×2 (06:02→11:15)
[2019-01-20] MEDS ORDERED: NS 2,000 ML MISC PRN (06:17)
[2019-01-20] MEDS ORDERED: TIGHT: 0.2 ML/HR FOR DIALYSIS MISC PRN (06:17)
[2019-01-20] MEDS ORDERED: HEPARIN IV PRN (06:17)
--- NOTE | 2019-01-20 08:30 | NEPHROLOGY PROGRESS NOTE ---
DATE: 01/20/2019 Date Seen: 01/20/2019 Time Seen: 0715 SUBJECTIVE: Ms. Viera is resting quietly in bed. States that she hurts all over. Denies chest pain, increased work of breathing. States her nausea is doing better. OBJECTIVE: Her most recent vital signs: Temperature 98 degrees blood pressure 110/79, heart rate 66 respirations 18. She is on room air. Last recorded saturation 100%. She has had 19 in 4500 out. LABS: Still pending this a.m. Her previous potassium of 3.2 with a hemoglobin of 10.7. PHYSICAL EXAMINATION: General: This is a 43-year-old female. She is resting quietly in bed. She appears chronically ill no acute distress. Skin: Warm and dry. HEENT: Normocephalic, atraumatic. Conjunctiva is pale pink. She has NIC. Mucous membranes are dry. Neck: Supple. Trachea midline. No evidence of JVD. Cardiovascular: She is regular rate and rhythm. She is without murmur or gallop. Lungs: Clear to auscultation bilaterally, equal excursion on room air. Abdomen: Soft, nontender, positive bowel sounds. Genitourinary: Not inspected. Minimal void with dialysis assist. Extremities: Have 1+ lower extremity edema. INTEGUMENTARY: Tunnel catheter remains to the right chest wall dry and intact.Neurological: She is alert and oriented x3. ASSESSMENT AND PLAN: 1. Chronic kidney disease stage 5D. The patient is due for her routine dialysis treatment tomorrow. Unfortunately patient has fluid volume overload, so we will plan for dialysis again today to assist with her fluid volume status. We will place her on a 2 K bath. We will dialyze her for 3.5 hours. Again we will attempt to challenge her outpatient dry weight. 2. Electrolytes and acid-base balance. These are all pending. 3. Anemia last drawn with a hemoglobin of 10.7. No indications for intervention. 4. Gastroparesis with nausea and vomiting, followed by the primary care team. 5. Leukocytosis and thrombocytosis. This is followed by Dr. Crabtree I would like to thank you for allowing us to follow with this patient. Dictated by ALEXIS Plata for eJrsey Hannah MD Face to face encounter, data reviewed, discussed with Sam Jacinto on 01/20/19. I agree with the above assessment and plan of care. cc: ALEXIS Plata MD MTDD
[2019-01-20] MEDS: LANTUS INSULIN SUBQ SCH (11:14)
[2019-01-20] MEDS: MIRALAX PO SCH (11:14)
[2019-01-20] MEDS: PLAVIX PO SCH (11:14)
[2019-01-20] MEDS: COLACE PO SCH (11:14)
[2019-01-20] MEDS: NORVASC PO SCH (11:15)
[2019-01-20] MEDS: PROTONIX PO SCH (11:15)
[2019-01-20] MEDS: TOPROL XL PO SCH (11:15)
[2019-01-20 11:55] VITALS: BP 126/74
--- NOTE | 2019-01-20 17:08 | HEMO/ONC PROGRESS NOTE ---
DATE: 01/20/2019 SUBJECTIVE: The patient is sitting up in bed. She has no complaints today. She is in no acute distress. OBJECTIVE: Vital signs: Temperature 98.1 degrees, pulse rate 72, respiratory rate 16, blood pressure 126/74, O2 saturation 96% on room air. Pain: She is in 0/10 pain. Respiratory: Clear to auscultation. Normal respiratory effort. Cardiovascular: Normal S1, S2. Regular rate and rhythm. Abdomen: Soft, nondistended, nontender. Bowel sounds are present. LABORATORY: The patient has refused labs for the last 2 days. ASSESSMENT: 1. End-stage renal disease, with hemodialysis. 2. Leukocytosis. 3. Thrombocytosis. PLAN: We are unable to evaluate the patient for any potential bone marrow or blood disorder due to the patient refusing to allow lab to draw. Patient is requesting discharge today. We will offer follow-up as an outpatient if patient would like. Dictated by ALEXIS Phelps for Asim Crabtree MD cc: Asim Crabtree MD
--- NOTE | 2019-01-20 21:50 | DISCHARGE SUMMARY ---
ADMISSION DATE: 01/15/2019 DISCHARGE DATE: 01/20/2019 DISCHARGE DIAGNOSES: 1. Intractable nausea and vomiting. 2. Diabetic gastroparesis. 3. Cardiomyopathy with left ventricular ejection fraction around 35%, as well as mild right-sided chamber enlargement with significant tricuspid regurgitation and moderate pulmonary hypertension by Doppler. 4. End-stage renal disease on hemodialysis. 5. Diabetes. 6. Constipation. 7. Leukocytosis and thrombocytosis, unclear etiology. Followed by Hematology/Oncology. PROCEDURE PERFORMED: Echocardiogram dated 01/16/2019. Summary: Normal left ventricular chamber size with mild concentric left ventricular hypertrophy, estimated ejection fraction around 35%. Global hypokinesis appears to be present with a greater degree of hypokinesis to the basal to mid inferolateral region of the left ventricle. Left atrium appears [id number] enlarged. The right atrium appears mildly enlarged. The right ventricle appears mildly enlarged with moderately reduced right ventricular systolic function. Left knee and right knee x-ray dated 01/19/2019, impression, severe atherosclerosis. HOSPITAL COURSE: A 43-year-old female who was recently admitted to our service on 12/26/2018. She has a past medical history of end-stage renal disease with Friday, and Friday hemodialysis. Also she has diabetes, heart failure with an ejection fraction of 35%, hypertension, cholecystitis with a recent cholecystectomy around a month ago, anxiety, and anemia of chronic disease. Admitted on 01/15/2019. Apparently she has been having nausea and vomiting for 3 days. No diarrhea. No fever. No chills. Glucose level elevated at 651. The total bilirubin is elevated slightly more than usual. She was admitted. Nephrology department consulted for her routine dialysis. Cardiology Department also was consulted and they suggested to try to remove more fluid off with her dialysis. It was noted that this patient has some cholestatic picture, probably related to her heart condition, and that is why the heart doctor recommended to pull out more fluid through dialysis. We noticed also that this patient had leukocytosis with thrombocytosis. Hematology/Oncology was consulted and they recommended to perform some lab work. The patient was improving on a daily basis. Actually, her vital signs are really stable today and she has been tolerating p.o. Today after dialysis, she has decided to leave AMA, even though the nurse explained to her the risk of leaving AMA, she decided to sign the documents and leave. PHYSICAL EXAMINATION: Vital Signs: Temperature 98.1 degrees, pulse 72, respiratory rate 16, blood pressure 126/74, oxygen saturation 94% on room air. HEENT: Head normocephalic. No trauma. PERRLA. Neck: Supple. No JVD. No masses. Central trachea. Chest: Clear to auscultation. Some crepitus at the bases. Abdomen: Soft. Some tenderness to palpation at the level of the right flank. Positive bowel sounds but no peritoneal irritation. Extremities: 2+ lower extremity edema. No clubbing. No cyanosis. Neurological: The patient is alert. She is oriented. She is following commands. LABORATORY DATA: Pending lab work today. ASSESSMENT AND PLAN: This patient has decided to leave [place]. cc: Rasta Lindquist MD
== END 2019-01-20 12:27 | disposition left against medical advice (07) | DRG 73 ==
LOC: ED 19:58 → 3S 01-15 04:16 → SUATTDRO 01-15 04:16
PROVIDERS: ATTEND Internal Medicine
CPT/HCPCS: 71010; 71045; 73562; 76705; 80048; 80053; 80069; 82948; 83690; 83735; 84100; 84443; 85025; 93005; 93306; 93308; 96361; 96374; 99285; A9270; C9113; J0780; J1170; J1644; J1815; J2405; J7030; J7040; J7042; S0028; S0164; XXXXX